=== PATIENT | female | born 1945 | race Caucasian/White ===

== ENCOUNTER 2019-12-20 01:36 | Outpatient (CLI) | payer MEDICARE, SELFPAY ==
--- NOTE | 2019-12-20 10:33 | DI.RAD_ITS ---
EXAM: XR CHEST 2V PA LATERAL INDICATION: MEDINA R06.09. COMPARISON: CHEST 2 VIEWS PA,LAT from 12/16/2017 TECHNIQUE: 2D digital imaging was performed. FINDINGS: Heart size is within normal limits. There is prominence of the pulmonary vasculature. Mild prominen ce of the interstitium is noted bilaterally. Pacing wires are in stable position. No focal consolid ating infiltrates are seen. No pleural effusion or pneumothorax is identified. The patient has bila teral shoulder replacements. Degenerative changes are seen in the spine. IMPRESSION: Mild prominence of the pulmonary vasculature and interstitium. This may represent pulmonary edema.
--- NOTE | 2019-12-20 10:38 | DI.RAD_ITS ---
EXAM: XR LUMBAR SPINE COMPLETE INDICATION: low back pain, M54.5. COMPARISON: No exams were available for comparison TECHNIQUE: 2D digital imaging was performed. FINDINGS: There are 5 lumbar type vertebral bodies. Grade 1 spondylolisthesis of L3 on L4, L4 on L5, and L5 on S1. There is disc space narrowing from L2-3 through L5-S1. There are endplate osteophytes througho ut the lumbar spine. Degenerative changes of the facets are seen throughout the lumbar spine. No ac [place] fractures or subluxations. There is a left convex scoliotic curvature of the lumbar spine. Athe rosclerosis of the abdominal aorta is noted. Surgical clips are seen in the pelvis. IMPRESSION: Moderately severe degenerative changes in the lumbar spine as described above
[2019-12-20 11:29] LABS: HCT 41.9 % (36.0-46.0); HGB 13.8 g/dL (12.0-15.5); Mean Corp. HGB Concentration 32.9 g/dL (32.0-36.0); Mean Corpuscular Hemoglobin 30.9 pg (27.0-33.0); Mean Corpuscular Volume 93.9 fL (80-95); Mean Platelet Volume 9.6 fL (8.0-11.0); Platelet Count 248 x1000/uL (130-400); RBC 4.46 m/cumm (4.00-5.20); RBC Distribution Width 12.4 % (11.7-14.6); White Blood Cell Count 6.39 k/cumm (4.4-10.8)
[2019-12-20 12:17] LABS: ALT 21 U/L (14-59); AST 21 U/L (15-37); Albumin 3.7 g/dL (3.4-5.0); Alkaline Phosphatase 82 U/L (46-116); BUN 17 mg/dL (7-18); Bilirubin, Total 0.5 mg/dL (0.2-1.0); C-Reactive Protein 0.47 mg/dL (0.0-0.3); CREATININE 0.91 mg/dL (0.55-1.02); Calcium 9.2 mg/dL (8.5-10.1); Chloride 108 mmol/L (98-107); Glucose 87 mg/dL (74-106); Potassium 4.2 mmol/L (3.5-5.1); Sodium 144 mmol/L (136-145); Total Protein 6.4 g/dL (6.4-8.2)
[2019-12-20 12:25] LABS: D-Dimer 1114 ng/mlFEU (<500)
[2019-12-20 12:53] LABS: ESR 12 mm/hr (0-30)
[2019-12-21] MEDS: Omnipaque 350 MG/ML 100 ML BTL IJ (10:24)
[2019-12-21] MEDS: Normal Saline - Diluent 50 ML VIAL IV (10:25)
--- NOTE | 2019-12-21 10:25 | DI.CT_ITS ---
EXAM: CT CHEST PE CTA CLINICAL HISTORY: SOB, ELEVATED D-DIMER, ? PE, I26.99 TECHNIQUE: COMPARISON: ABD PELVIS WITH CONTRAST from 07/26/2014 FINDINGS: CT angiography of chest was performed bolus infusion of 100 cc of Omnipaque 350. Images obtained thr ough the upper abdomen show unremarkable appearance visualized portions of liver, spleen, pancreas, a drenals, kidneys. There is no evidence of pulmonary embolic disease. Thoracic aorta major branches appear intact. No mediastinal or hilar adenopathy. Tracheobronchial tree appears intact. No pleura l effusion or pleural-based mass. Mosaic attenuation of the lungs noted, nonspecific finding which m ay be related to airway disease. Although the lungs are underinflated there is some question of slig ht interstitial prominence diffusely. Transvenous cardiac pacemaker noted. There is mild cardiomegaly. IMPRESSION: No evidence of pulmonary embolic disease. Cardiomegaly with slight interstitial prominence, early CH F not excluded. Mosaic attenuation of the lungs may indicate small airway process.
== END 2019-12-20 01:56 ==
PROVIDERS: PCP Emergency Medicine; Visit Provider Emergency Medicine
DX: M54.5 Low back pain (principal); M43.17 Spondylolisthesis, lumbosacral region; M51.37 Other intervertebral disc degeneration, lumbosacral region; M47.817 Spondylosis without myelopathy or radiculopathy, lumbosacral region; R06.02 Shortness of breath; R06.09 Other forms of dyspnea; I26.99 Other pulmonary embolism without acute cor pulmonale; Z95.0 Presence of cardiac pacemaker; I51.7 Cardiomegaly
CPT/HCPCS: 36415; 71275; 80053; 85027; 85652; 71046; 72110; 85379; 86140; J3490

== ENCOUNTER 2019-12-27 01:13 | Outpatient (CLI) | payer MEDICARE, SELFPAY ==
--- NOTE | 2019-12-27 10:10 | DI.NM_ITS ---
APPROVED REPORT Exam: Pharmacologic Patient Location: Out-Patient Room/Bed: Stress Nurse: Mandy Givens RN BMI: 30.17 Baseline Rhythm: Atrial Paced Indications: For the past 4 months patient reports SOB with activity. She states she also has a ???ti ghtness??? across the middle of her back when she has the SOB. Medical History Medical History: Cervical Spine Fusion for Disc Herniation Cardiac Medications: No Cardial Medications Allergies: Hydrochlorothiazide, Macrobid, Penicillin, Pomegranate, Bees. Cardiac Risk Factors: FHX of CAD Previous Cardiac Procedures: Pacemaker (January 2018) Pretest Chest Pain Characteristics: None Exercise History: Physically active Physical Disabilities: None Lung Sounds: Clear to auscultation Heart Sounds: Regular Stress Test Details Test: Pharmacologic stress testing performed using 0.4 mg of regadenoson per 5 mL given IV over 10 s econds. Nuclear Acquisition: Rest Tc-99m/Stress Tc-99m 1 day Rest Isotope: Tc-99m Sestamibi. Dose: 11.0 Date: 12/27/2019 Injection Time: 0850 Stress Isotope: Tc-99m Sestamibi. Dose: 33.0 Date: 12/27/2019 Injection Time: 1025 HR Max Heart Rate (APMHR): 144 bpm Resting HR Supine: 60 bpm Target HR (85% APMHR): 122 bpm Max HR Achieved: 68 bpm % of APMHR: 47 BP Resting BP Supine: 120/80 mmHg Max BP: 132/80 mmHg ECG Resting ECG: Atrial Paced ST Change: Normal Ectopy: none Stress ECG: Atrial paced ST Change: Normal Arrhythmia: None Recovery ECG: Sinus Rhythm Recovery ST Change: Normal Recovery Arrhythmia: None Clinical Stress Symptoms: None Stress ECG Conclusion 1. There was no evidence of ischemia on the ECG portion of this exam. Protocol Used: Regadenoson Stress Test Summary STAGE HR BP Symptoms NOTES Supine 60 120/80 Standing 1 min 60 130/80 2 min 3 min 60 132/80 4 min 5 min 6 min 60 118/70 7 min 8 min 9 min 10 min 1 min recovery 3 min recovery 6 min recovery MPI Conclusion Patient's ejection fraction was 53%. There were no wall motion abnormalities. There is no evidence of ischemia on the imaging portion of this exam. This represents a normal SPECT stress test.
[2019-12-27] MEDS: Regadenoson 0.4 MG/5 ML SYR IVP (10:50)
== END 2019-12-27 01:33 ==
PROVIDERS: PCP Emergency Medicine; Visit Provider Emergency Medicine
DX: R06.02 Shortness of breath (principal); R06.09 Other forms of dyspnea; Z95.0 Presence of cardiac pacemaker; Z82.49 Family history of ischemic heart disease and other diseases of the circulatory system
CPT/HCPCS: 78452; 93016; 93018; 93017; J2785

== ENCOUNTER 2020-01-09 09:41 | Outpatient (CLI) | payer MEDICARE, SELFPAY ==
[2020-01-09 13:59] LABS: D-Dimer 1233 ng/mlFEU (<500)
[2020-01-09 14:05] LABS: ESR 14 mm/hr (0-30)
== END 2020-01-09 10:01 ==
PROVIDERS: PCP Emergency Medicine; Visit Provider Emergency Medicine
DX: R06.02 Shortness of breath (principal); R79.1 Abnormal coagulation profile; M54.5 Low back pain
CPT/HCPCS: 36415; 85652; 85379

== ENCOUNTER 2020-03-11 11:45 | Outpatient (CLI) | payer MEDICARE, SELFPAY ==
--- NOTE | 2020-03-11 13:58 | DI.US_ITS ---
APPROVED REPORT EXAM: Comprehensive 2D, Doppler, and color-flow Echocardiogram Patient Location: Out-Patient Legal Compliance Officer: Yue Morse RDCS (AE) Indications: Dyspnea on Exerction Other Information Study Quality: Adequate Conclusion Left Ventricle : The left ventricle is normal size. The left ventricular systolic function is normal. The left ventricular ejection fraction is within the normal range. There is normal left ventricular wall thickness. There is normal LV segmental wall motion. The left ventricular diastolic function is normal. LVEF is 55-60%. Right Ventricle : The right ventricle is normal size. The right ventricular systolic function is norm al. Atria : The left atrium size is normal. The right atrium size is normal. Valves: There are no hemodynamically significant valvular lesions. Great Vessels : IVC is normal in size and collapses >50% with inspiration. The RVSP is 27 mmHg. Compared to echocardiogram dated 12/28/2017: There is no significant change. Wall motion Left Ventricle The left ventricle is normal size. The left ventricular systolic function is normal. The left ventric ular ejection fraction is within the normal range. There is normal left ventricular wall thickness. T here is normal LV segmental wall motion. The left ventricular diastolic function is normal. There is no ventricular septal defect visualized. LVEF is 55-60%. Right Ventricle The right ventricle is normal size. The right ventricular systolic function is normal. Pacemaker lead is present in the right ventricle. Atria The left atrium size is normal. The right atrium size is normal. The interatrial septum is intact wit h no evidence for an atrial septal defect. Aortic Valve The aortic valve is normal in structure. Aortic valve is trileaflet. There is no aortic valvular sten osis. No aortic regurgitation is present. Mitral Valve There is mitral annular calcification. No evidence of mitral valve stenosis. Trace mitral regurgitati on. Tricuspid Valve The tricuspid valve is normal in structure. There is no tricuspid valve stenosis. Mild tricuspid regu rgitation. Pulmonic Valve The pulmonary valve is normal in structure. There is no pulmonic valvular stenosis. There is no pulmo asuncion valvular regurgitation. Great Vessels The aortic root is normal in size. The ascending aorta is normal in size. IVC is normal in size and c ollapses >50% with inspiration. The RVSP is 27 mmHg. Pericardium There is no pericardial effusion. There is no pleural effusion. 2D Dimensions IVSD d PLAX 0.92 cm F: 0.6-1.0 LV Vol A2C d MOD 74.5 mL LVPW d PLAX 0.92 cm F: 0.6 - 1.0 LV Vol A4C d MOD 86.8 mL LVID d PLAX 4.58 cm F: 3.8 - 5.2 LA vol/ BSA A2C s A-L 21.3 mL/m2 LVDs 3.45 cm F: 2.2 - 3.5 LA vol/ BSA A4C s A-L 21.8 mL/m2 Ao Root d 3.46 cm F: 2.7 - 3.3 LA Vol/ BSA Biplane s A-L 22.0 mL/m2 RA Area A4C 16.29 cm2 LA Area A4C s MOD 15.99 cm2 RA Vol/ BSA A4C s A-L 22.2 mL/m2 LA Area A2C s MOD 16.13 cm2 Ao Asc Diam d 3.72 cm F: 2.3 - 3.1 LV EF A4C MOD 61.8 % LV EF Teichholz 48.2 % LV EF A2C MOD 50.2 % LVEF (Prather's) 56.69 % F: 54 - 74 LV EF Biplane MOD 56.7 % LV Volume 63.16 mL F: 46 - 106 LV Volume Index 32.55 mL/m2 F: 29 - 61 LV Vol Biplane MOD 83.5 mL FS 24.15 % M-Mode TAPSE 2.08 cm (M/F) <1.7 LV Diastology MV E' medial 0.044 (>0.07 m/s) E/A Ratio 0.9 LV E/e MED 11.40 (<14) MV E Vmax 0.50 (0.4-1.3 m/s) MV E' lateral 0.077 (>0.1 m/s) MV A Vmax 0.55 (0.4-1.3 m/s) LV E/e LAT 6.50 (<14) MV E/A Ratio 0.90 MV E/E' medial 11.43 MV E/E' lateral 6.51 Aortic Valve LVOT Area 2.53 cm2 AoV Area Vmax 2.09 cm2 LVOT Vmax 0.96 m/s AoV Area/ BSA (Vmax) 1.07 cm2/m2 LVOT Mean Jarret. 0.56 m/s MAX Mean Jarret. 1.73 cm2 LVOT Peak Grad 3.7 mmHg MAX Mean Jarret. Index 0.89 cm2/m2 LVOT Mean Grad 1.6 mmHg LVOT VTI 0.211 m LVOT Diam s 1.75 cm (M/F) 1.5-2.5 AoV Vmax 1.16 (0.5-1.3 m/s) Velocity Ratio 0.82 AoV Mean Jarret. 0.82 m/s AoV Peak Grad 5.4 mmHg LVOT SV 53.20 mL AoV Mean Grad 3.0 (<5 mmHg) AoV VTI 0.232 (0.18-0.25 m) AoV Area VTI 2.29 (2.5-4.5 cm2) AoV Area/ BSA (VTI) 1.18 cm/m2 Mitral Valve MV DT 416 (160-240 msec) MV PHT 121 msec MV Area PHT 1.82 cm2 Pulmonary Valve PV Vmax 0.74 (0.5-1.5 m/s) RVOT Peak Gr. 1.03 mmHg PV Peak Grad 2.2 mmHg RVOT Mean Gr. 0.50 mmHg PV Mean Grad 1.1 mmHg RVOT VTI 0.107 m PV VTI 0.155 m RVOT Vmax 0.51 m/s Tricuspid Valve TR Peak Grad 23.6 mmHg TR Vmax 2.43 m/s RA Pressure 3.00 mmHg RVSP (TR) 26.7 mmHg
[2020-03-11 14:00] LABS: Abs Immature Grans 0.02 k/cumm (0.0-0.09); Absolute Basophil Count 0.02 k/cumm (0.0-0.2); Absolute Eosinophil Count 0.34 k/cumm (0.0-0.7); Absolute Lymphocyte Count 1.94 k/cumm (1.2-3.4); Absolute Monocyte Count 0.58 k/cumm (0.11-0.7); Basophils % 0.3; Eosinophils % 4.7; HCT 41.1 % (36.0-46.0); HGB 13.9 g/dL (12.0-15.5); Immature Grans % 0.3 %; Lymphocytes % 26.9; Mean Corp. HGB Concentration 33.8 g/dL (32.0-36.0); Mean Corpuscular Hemoglobin 31.7 pg (27.0-33.0); Mean Corpuscular Volume 93.6 fL (80-95); Mean Platelet Volume 9.6 fL (8.0-11.0); Monocytes % 8.1; Neutrophils % 59.7; Platelet Count 220 x1000/uL (130-400); RBC 4.39 m/cumm (4.00-5.20); RBC Distribution Width 12.2 % (11.7-14.6)
[2020-03-11 14:08] LABS: ALT 22 U/L (14-59); AST 19 U/L (15-37); Albumin 3.6 g/dL (3.4-5.0); Alkaline Phosphatase 77 U/L (46-116); Anion Gap 9.8 mmol/L (3-11); BUN 17 mg/dL (7-18); Bilirubin, Total 0.4 mg/dL (0.2-1.0); C-Reactive Protein 0.27 mg/dL (0.0-0.3); CO2 25.2 mmol/L (21.0-32.0); CREATININE 0.93 mg/dL (0.55-1.02); Calcium 9.3 mg/dL (8.5-10.1); Chloride 107 mmol/L (98-107); Estimated GFR 58.61 (mL/min/1.73m2); Glucose 92 mg/dL (74-106); Potassium 4.2 mmol/L (3.5-5.1); Sodium 142 mmol/L (136-145); TSH 3.56 uIU/mL (0.36-3.74); Total Protein 6.9 g/dL (6.4-8.2)
[2020-03-11 14:22] LABS: D-Dimer 954 ng/mlFEU (<500)
[2020-03-11 14:38] LABS: ESR 24 mm/hr (0-30)
== END 2020-03-11 12:05 ==
PROVIDERS: PCP Emergency Medicine; Visit Provider Emergency Medicine
DX: R06.09 Other forms of dyspnea (principal); E03.9 Hypothyroidism, unspecified; R10.9 Unspecified abdominal pain; M48.00 Spinal stenosis, site unspecified
CPT/HCPCS: 36415; 80053; 85652; 93306; 84443; 85025; 85379; 86140

== ENCOUNTER 2020-03-12 01:08 | Outpatient (CLI) | payer MEDICARE, SELFPAY ==
--- NOTE | 2020-03-12 07:04 | DI.CT_ITS ---
EXAM: CT ABDOMEN AND PELVIS W AND CT LUMBAR SPINE RECONS CLINICAL HISTORY: ABDOMINAL PAIN, ABNL WT LOSS, R63.4, R10.9 TECHNIQUE: Imaging Protocol: Axial computed tomography images with coronal and sagittal reformatted images were created and reviewed CONTRAST MATERIAL: Intravenous: Omnipaque 350 Contrast volume:100 mL Oral: Yes COMPARISON: CT CHEST PE CTA from 12/21/2019 FINDINGS: ABDOMEN: Lung Bases: Dependent atelectasis or scarring. Liver: Normal density. No measurable mass. Portal, Superior Mesenteric, and Splenic Veins: Unremarkable. Gallbladder and Biliary Tract: No radiodense calculus or dilation. Pancreas: Normal density, no abnormal calcifications or inflammatory process. Spleen: Normal. Adrenals: No masses seen. Kidneys: Normal size, contour and axis. No radiodense stones or obstructive uropathy. No masses seen. Abdominal Aorta: Abdominal portion non-dilated. Atherosclerosis. Bowel: No obstruction or bowel wall thickening. Appendix is unremarkable. Peritoneal Cavity: No ascites, collection or mesenteric inflammatory response. Lymph Nodes: Within normal limits. Bones: See below. Soft Tissues: Unremarkable. PELVIS: Bladder: Symmetric distention, no gross wall thickening. Reproductive Organs: Status post hysterectomy. Lymph Nodes: Within normal limits. Bones: See below. CT LUMBAR SPINE RECONS: L5-S1: There is fusion of the L5-S1 disc space with grade 1 anterolisthesis of L5 on S1. There is mo derately severe bilateral neural foraminal stenosis. No significant central spinal canal stenosis is present. L4-L5: There is a vacuum disc. There is a diffuse disc bulge. There are hypertrophic changes of the facet joints. There is mild left and moderate right neural foraminal stenosis. Mild narrowing of t he transverse diameter of the spinal canal is noted. L3-L4: There is a vacuum disc. There is narrowing of the intervertebral disc space. There are degen erative changes of the facets. No significant central spinal canal stenosis is present. There is mo derate bilateral neural foraminal stenosis. L2-L3: There is a vacuum disc. No focal disc herniation or significant central spinal canal stenosis is seen. Mild narrowing of the neural foramen is seen bilaterally. L1-L2: No significant central spinal canal or neural foraminal stenosis is present. There is mild na rrowing of the neural foramen bilaterally. IMPRESSION: 1. No acute abdominal or pelvic process. 2. Multilevel degenerative changes in the lumbar spine resulting in multilevel neural foraminal and c entral spinal canal stenosis. Please see the above discussion for complete details. RADIATION DOSE DELIVERED: DATA REPOSITORY: All CT scans at this facility are submitted to the National Radiology Data Registry (NRDR) Dose Index Registry (DIR) with the [employer] ([employer]). RADIATION OPTIMIZATION: All CT scans at this facility use at least one of these dose optimization te chniques: automated exposure control; mA and/or kV adjustment per patient size (includes targeted exa ms where dose is matched to clinical indication); or iterative reconstruction.
[2020-03-12] MEDS: Omnipaque 350 MG/ML 50 ML BTL IJ (10:02)
[2020-03-12] MEDS: Breeza Beverage 473 ML BTL PO ×2 (10:03→10:05)
[2020-03-12] MEDS: Omnipaque 350 MG/ML 100 ML BTL IJ (11:41)
== END 2020-03-12 01:28 ==
PROVIDERS: PCP Emergency Medicine; Visit Provider Family Medicine
DX: R10.9 Unspecified abdominal pain (principal); R63.4 Abnormal weight loss; J98.4 Other disorders of lung; M51.37 Other intervertebral disc degeneration, lumbosacral region; M48.061 Spinal stenosis, lumbar region without neurogenic claudication; Z98.1 Arthrodesis status; Z90.710 Acquired absence of both cervix and uterus
CPT/HCPCS: 74177; J3490; Q9967

== ENCOUNTER 2020-07-09 13:09 | Emergency (ER) | payer MEDICARE, SELFPAY ==
[2020-07-09] VITALS (13 sets, daily range): BP systolic 151; BP diastolic 84; PULSE 60–61; RESP 11–25; TEMP 36.3–36.6; O2SAT 96–99
--- NOTE | 2020-07-09 13:00 | RT.EKG_ITS ---
APPROVED REPORT Exam: Resting ECG Patient Location: E HR:60 bpm ECG Measurements Heart Rate 60 AXIS AZ 121 P [id number] QRSd 97 QRS 10 QT 424 T 27 QTc 424 Conclusion Atrial-paced rhythm. Less than 1mm ST depression in V3. No acute ST elevation.
[2020-07-09] MEDS: Normal Saline 500 ML IV (13:15)
--- NOTE | 2020-07-09 13:30 | RT.EKG_ITS ---
APPROVED REPORT Exam: Resting ECG Patient Location: E HR:60 bpm ECG Measurements Heart Rate 60 AXIS ME 122 P [id number] QRSd 97 QRS 1 QT 431 T 14 QTc 431 Conclusion Atrial-paced rhythm. No acute ST elevation or depression.
--- NOTE | 2020-07-09 13:31 | DI.CT_ITS ---
EXAM: CT HEAD WO CLINICAL HISTORY: dizziness. TECHNIQUE: Imaging Protocol: Axial computed tomography images with coronal and sagittal reformatted images were created and reviewed COMPARISON: CT HEAD WITHOUT CONTRAST from 07/26/2014 FINDINGS: Ventricles and Extra axial spaces: Normal in size and morphology for the patient's age. Hemorrhage: None. Cerebral parenchyma: Findings of microvascular ischemic disease. No acute territorial infarct. Midline shift: None. Brainstem/Cerebellum: Normal. Calvarium: Normal. Visualized Paranasal sinuses/Mastoids: Clear. Soft Tissues: Unremarkable. IMPRESSION: No acute intracranial process. RADIATION DOSE DELIVERED: 762.23mGy.cm Total DLP DATA REPOSITORY: All CT scans at this facility are submitted to the National Radiology Data Registry (NRDR) Dose Index Registry (DIR) with the [employer] ([employer]). RADIATION OPTIMIZATION: All CT scans at this facility use at least one of these dose optimization te chniques: automated exposure control; mA and/or kV adjustment per patient size (includes targeted exa ms where dose is matched to clinical indication); or iterative reconstruction.
--- NOTE | 2020-07-09 13:45 | W.ED.GENAD ---
Discharge Plan Disposition Patient Disposition: HOME Condition: Stable Discharge Details Chief Complaint: Dizzy/Sync Clinical Impression: Dizziness Primary Care Provider: Milad Holbrook ED Provider: Oscar Smith Home Meds and New Rx's Prescriptions: Continued levothyroxine [Synthroid] 50 mcg tablet 50 mcg PO DAILY Qty: 90 RF: 3 Trelegy Ellipta 100-62.5-25 mcg blister with device 1 inh IH DAILY Qty: 60 RF: 6 albuterol sulfate 90 mcg/actuation HFA aerosol inhaler 2 puff IH QID Qty: 18 RF: 0 cholecalciferol (vitamin D3) [Vitamin D3] 1,000 UNIT capsule 1,000 unit PO DAILY RF: 0 aspirin 81 MG tablet,chewable 81 mg PO DAILY RF: 0 estradiol [Vagifem] 10 MCG tablet 10 mcg VG UNKNOWN RF: 0 Discharge Instructions Instructions: Dizziness (ED) Additional Instructions: At this time your work-up was unremarkable for obvious emergent process including a rapid cardiac rule out and a head CT. You have remained asymptomatic while in the ER. As we discussed, I do recommend contacting your primary care provider tomorrow for prompt outpatient reevaluation, they may want to see you sooner than your scheduled appointment in early July. Also outpatient cardiology referral and/or potential stress test could be indicated if deemed necessary. I would discuss this with your primary care provider as well. Please watch for new or worsening symptoms and return to the ER for any concerns. Discharge Data Discharge Date/Time-TO BE ENTERED AT DEPARTURE: 07/09/20 17:35 Medical Decision Making <Leonela Starr - Last Filed: 07/10/20 08:42> EKG was reviewed by Zulma Isaacs MD ER attending, old EKG is available for review from November 2019, less than [address] depression V2, [address] depression in V3 consider posterior infarct. 1519: Patient reevaluation has received approximately 700 mils normal saline IV has been up to the bathroom x2 without any complaint of dizziness. Has never complained of chest pain. CBC is largely within normal limits, CMP sodium is 138, potassium 4.3, BUN is 20 creatinine is 0.83 GFR is greater than 60, glucose is 117 initial troponin is negative less than 0.06, urinalysis is largely within normal limits. Meclizine 25 mg p.o. ordered. At this time I feel that this could have been an isolated incident related to dehydration. Serial troponin is due at 4:30 PM. EXAM: CT HEAD WO CLINICAL HISTORY: dizziness. TECHNIQUE: Imaging Protocol: Axial computed tomography images with coronal and sagittal reformatted images were created and reviewed COMPARISON: CT HEAD WITHOUT CONTRAST from 07/26/2014 FINDINGS: Ventricles and Extra axial spaces: Normal in size and morphology for the patient's age. Hemorrhage: None. Cerebral parenchyma: Findings of microvascular ischemic disease. No acute territorial infarct. Midline shift: None. Brainstem/Cerebellum: Normal. Calvarium: Normal. Visualized Paranasal sinuses/Mastoids: Clear. Soft Tissues: Unremarkable. IMPRESSION: No acute intracranial process. Discussed lab results and plan of care at length with patient, she agrees to wait for her second serial troponin which is due at approximately 1630 p.m. Patient continues to deny any chest pain or increased shortness of breath no other episodes of dizziness at this time. Care is to be handed off pending second troponin to oncoming provider GRANT Vick. Expected disposition at this time is discharged with possible follow-up with cardiology, and PCP Dr. Holbrook. She does have a follow-up appointment on August 05 with PCP. <GRANT Orozco - Last Filed: 07/09/20 17:29> 74-year-old female with a history of chronic pneumonitis, spinal stenosis, uterine cancer, presents to the ER stating that this morning she had dizziness like the room was spinning. This occurred around 9 AM. She felt nauseous, call was placed to PCP who suggested drinking water. Patient reports that she drank water and was subsequently asymptomatic but came to the ER for further evaluation. Thus far initial cardiac work-up was unremarkable, head CT was unremarkable, repeat troponin and EKG pending. I assumed care from my colleague, KEYLA Starr at shift change, please see her note for initial HPI and examination. Upon shift change, I examined the patient personally in room 4. She was resting comfortably and reported feeling asymptomatic. She appears well, nontoxic. Head normocephalic, moist mucous membranes, eyes extraocular movements intact, no nystagmus. Heart regular rate and rhythm, lungs clear to auscultation. Grossly neurologically intact. Plan was if repeat troponin and EKG were unremarkable, patient remained asymptomatic, she would be discharged from our facility with close outpatient follow-up through her primary care provider and likely outpatient cardiology referral. I discussed this plan with patient, she is quite comfortable with this. Repeat troponin is less than 0.05. Repeat EKG performed at 1653 reviewed and interpreted with Dr. Isaacs, please see her official report. Sinus rhythm, ventricular rate of 60. No STEMI, no dynamic changes. Discussed repeat EKG and troponin with patient. She is relieved and has no additional questions or concerns. Her plan is to contact her primary care provider tomorrow to see if they would like to see her earlier than her already scheduled appointment in early July. We did discuss outpatient cardiology referral and/or potential stress test. She was encouraged to return to the ER for new or worsening symptoms. HPI <Leonela Starr - Last Filed: 07/10/20 08:42> General Mode of arrival: ambulatory. Date/Time Provider Initiated Documentation: 07/09/20 13:14. Limitations to Documentation: no limitations. Information obtained by: patient. HPI Narrative: 74-year-old female presents to the ER with dizziness. She reports that this morning when she woke up around 9 AM she felt unsteady on her feet have nausea and dizziness she sat back down, sat back up and then dizziness returned. She did drink some water and she reports that the dizziness went away after that. She denies having any dizziness upon initial exam, no chest pain no increased shortness of breath. She does state that she has shortness of breath at baseline normally. She does have a past medical history of Atrial pacemaker, dyspnea on exertion, chronically elevated d-dimer, pneumonitis, spinal stenosis and uterine cancer, surgical history includes hysterectomy knee replacement shoulder surgery. She denies any vomiting diarrhea. She was [place] [employer] yesterday in the heat. Related Data Home Medications Medication Instructions Recorded Confirmed estradiol [Vagifem] 10 mcg VG UNKNOWN 06/01/15 07/09/20 cholecalciferol (vitamin D3) 1,000 unit PO DAILY 12/03/15 07/09/20 [Vitamin D3] aspirin 81 mg PO DAILY tab-cap 01/27/18 07/09/20 levothyroxine 50 mcg tablet 50 mcg PO DAILY #90 tab 03/11/20 07/09/20 albuterol sulfate 90 mcg/actuation 2 puff IH QID #18 gm 03/28/20 07/09/20 aerosol inhaler fluticasone fur. 100 mcg-umeclid 1 inh IH DAILY #60 each 03/28/20 07/09/20 62.5 mcg-vilant 25 mcg inhalat.powder Previous Rx's Medication Instructions Recorded levothyroxine 50 mcg tablet 50 mcg PO DAILY #90 tab 03/11/20 albuterol sulfate 90 mcg/actuation 2 puff IH QID #18 gm 03/28/20 aerosol inhaler fluticasone fur. 100 mcg-umeclid 1 inh IH DAILY #60 each 03/28/20 62.5 mcg-vilant 25 mcg inhalat.powder Allergies Allergy/AdvReac Type Severity Reaction Status Date / Time umeclidinium Allergy Intermediate rash Verified 03/21/20 11:23 [From Anoro Ellipta] vilanterol Allergy Intermediate rash Verified 03/21/20 11:23 [From Anoro Ellipta] hydrochlorothiazide Allergy Mild Itching Verified 01/08/20 11:07 nitrofurantoin Allergy Mild Itching Verified 01/08/20 11:07 [From Macrobid] nitrofurantoin Allergy Mild Itching Verified 01/08/20 11:07 macrocrystalline [From Macrobid] Penicillins Allergy Mild Itching Verified 01/08/20 11:07 pomegranate Allergy Mild Itching Verified 01/08/20 11:07 General Stated Complaint: Dizzy/Sync YANNI: 3 Review of Systems <Leonela Starr [employer] Last Filed: 07/10/20 08:42> Narrative: Constitutional: Negative for weight loss, alert and oriented, well groomed, normal body habitus, appears comfortable. HEENT: Denies trauma, blurry vision, nasal discharge, sore throat, trouble swallowing. Mild headache. Chest: Denies chest pain, palpitations, irregular rhythm, hypertension. Respiratory: Denies Shortness of breath, cough, hemoptysis. GI: Denies abdominal pain, nausea, vomiting, diarrhea, constipation. : Denies dysuria, hematuria, flank pain, rectal bleeding. Neuro: Denies blurry vision, weakness, syncope, headache or facial numbness. Positive dizziness which has resolved. Hematologic: Denies easy bruising, intolerance to heat or cold, hair loss. PFSH <Leonelakanika [place] [facility] [[email or web address]] Filed: 07/10/20 08:42> Medical History Abdominal pain (Acute) MEDINA (dyspnea on exertion) (Acute) Elevated d-dimer (Acute) Pneumonitis (Acute) Spinal stenosis (Acute) Uterine cancer (Acute) Social History Smoking/Tobacco Use Status: Former Tobacco Use Drug use: Never Do you feel safe at home: Yes Do you feel safe in your relationship?: Yes Exam <Leonela Starr - Last Filed: 07/10/20 08:42> Narrative Exam Narrative: Constitutional: Alert and oriented x3. Appears stated age. Normal body habitus. Head: Normocephalic, no trauma. Eyes: Pupils PERRLA, Red reflex noted, EOM's intact. Eyelids symmetrical without lesions, discharge, or swelling. ENT: Bilateral TM's WNL, External ear normal to inspection, no mastoid TTP, swelling, or erythema, Nasal turbinates WNL, no nasal discharge. Normal dentition, Posterior pharynx WNL, no exudate. Chest: RRR, Normal S1, S2, distal pulses intact. Resp: Lungs clear to auscultation bilaterally, no wheezes, rales, or rhonchi. Musculoskeletal: Normal gait, 5/5 strength to all four extremities. Skin: No suspicious rashes or lesions. Capillary refill less than 2 sec. Neurologic: Cranial nerves II-XII intact. Alert and oriented x 3. DTR's intact. Hematologic/Lymphatic: No ecchymosis, no lymphadenopathy. Course <Leonela Starr - Last Filed: 07/10/20 08:42> Vital Signs Vital signs: Vital Signs Temperature 36.3 C L 07/09/20 13:13 Pulse 60 07/09/20 13:13 Respiratory Rate 14 07/09/20 13:13 Blood Pressure 151/84 H 07/09/20 13:13 Pulse Oximetry 97 07/09/20 13:13 Temperature 36.3 C L 07/09/20 13:13 Temperature Source Skin 07/09/20 13:13 Pulse 60 07/09/20 13:13 Respiratory Rate 14 07/09/20 13:13 Blood Pressure 151/84 H 07/09/20 13:13 Blood Pressure Position Supine 07/09/20 13:13 Pulse Oximetry 97 07/09/20 13:13 Oxygen Delivery Method Room Air 07/09/20 13:13 Oxygen Flow Rate 0 07/09/20 13:13 Sign Out <Leonela Starr - Last Filed: 07/10/20 08:42> Sign Out Data: Sign Out Comment: Pending repeat Troponin. Expected disposition is DC with possible cardiology follow up and PCP follow up. Last updated by Leonela Starr at 07/09/20 16:15
[2020-07-09 13:48] LABS: Abs Immature Grans 0.03 10^3/uL (0.0-0.06); Absolute Basophil Count 0.02 10^3/uL (0.0-0.2); Absolute Eosinophil Count 0.12 10^3/uL (0.0-0.7); Absolute Lymphocyte Count 0.83 10^3/uL (1.2-3.4); Absolute Monocyte Count 0.47 10^3/uL (0.1-0.8); Absolute Neutrophil Count 6.87 10^3/uL (1.2-6.7); Basophils % 0.2; Eosinophils % 1.4; HCT 40.1 % (36.0-46.0); HGB 13.3 g/dL (11.2-15.7); Immature Grans % 0.4; MCH 31.8 pg (27.0-33.0); MCHC 33.2 % (32.0-36.0); MCV 95.9 fL (80-95); MPV 9.4 fL (8.0-11.0); Monocytes % 5.6; Neutrophils % 82.4; Nucleated RBC 0 %; Platelet Count 205 10^3/uL (130-400); RBC 4.18 10^6/uL (3.93-5.22); RDW 11.7 % (11.7-14.6); RDW-SD 41.1 fL; WBC 8.34 10^3/uL (4.4-10.8)
[2020-07-09 14:05] LABS: Bilirubin Negative (Negative); Blood Negative (Negative); Clarity Clear (Clear); Glucose Negative (Negative); Ketones Negative (Negative); Leukocyte Esterase Negative (Negative); Nitrite Negative (Negative); Urobilinogen 0.2 EU/dL (Up TO 0.2)
[2020-07-09 14:06] LABS: ALT 26 U/L (14-59); AST 23 U/L (15-37); Albumin 3.6 g/dL (3.4-5.0); Alkaline Phosphatase 77 U/L (46-116); Anion Gap 6.4 mmol/L (3-11); BUN 20 mg/dL (7-18); Bilirubin, Total 0.5 mg/dL (0.2-1.0); CO2 25.6 mmol/L (21.0-32.0); CREATININE 0.83 mg/dL (0.55-1.02); Chloride 106 mmol/L (98-107); Glucose 117 mg/dL (74-106); Potassium 4.3 mmol/L (3.5-5.1); Sodium 138 mmol/L (136-145); Total Protein 6.9 g/dL (6.4-8.2)
[2020-07-09 14:07] LABS: Troponin I < 0.05 ng/mL (<0.06)
[2020-07-09] MEDS: Meclizine 25 MG TAB PO (15:23)
--- NOTE | 2020-07-09 16:45 | RT.EKG_ITS ---
APPROVED REPORT Exam: Resting ECG Patient Location: E HR:60 bpm ECG Measurements Heart Rate 60 AXIS FL 199 P [id number] QRSd 98 QRS 2 QT 427 T 13 QTc 427 Conclusion Atrial-paced rhythm. No acute ST elevation or depression.
[2020-07-09 17:03] LABS: Troponin I < 0.05 ng/mL (<0.06)
== END 2020-07-09 17:35 | disposition home or self-care (01) ==
PROVIDERS: Registered Nurse Emergency; Emergency Provider Physician Assistant; PCP Emergency Medicine
DX: R42 Dizziness and giddiness (principal); R11.0 Nausea
CPT/HCPCS: 36415; 80053; 93005; 99285; 70450; 81003; 83735; 84484; 85025; 93010; 99284

== ENCOUNTER 2022-02-26 12:21 | Outpatient (CLI) | payer OTHER, SELFPAY ==
[2022-02-26 12:04] VITALS: BP 151/88; PULSE 60; RESP 16; TEMP 36.4; O2SAT 97
[2022-02-26 12:27] VITALS: BP 122/73; PULSE 60; RESP 16; TEMP 36.9; O2SAT 94
== END 2022-02-26 12:22 | disposition home or self-care (01) ==
LOC: INF 12:34
PROVIDERS: PCP Family Medicine; Visit Provider Family Medicine
DX: U07.1 COVID-19 (principal)
CPT/HCPCS: 96365; 96374; Q0222

== ENCOUNTER 2022-03-20 04:17 | Inpatient (IN) | payer MEDICARE, SELFPAY ==
[2022-03-20] VITALS (51 sets, daily range): BP systolic 93–136; BP diastolic 40–72; PULSE 59–61; RESP 16–19; TEMP 36.4–38.1; O2SAT 93–100
--- NOTE | 2022-03-20 05:06 | W.ED.GENAD ---
Discharge Plan Disposition Patient Disposition: STILL A PATIENT Condition: Stable Discharge Details Chief Complaint: Orthopedic Clinical Impression: Olecranon bursitis of left elbow, Cellulitis of arm, left Primary Care Provider: Jefferson Cazares ED Provider: Farhat Finnegan Home Meds and New Rx's Prescriptions: No Action Anoro Ellipta 62.5-25 mcg/actuation blister with device 1 inh IH DAILY 0RF Label Comments: prescribed log feeder, [facility] [place] Ellipta 100-62.5-25 mcg blister with device 1 inh IH DAILY Qty: 60 6RF albuterol sulfate 90 mcg/actuation HFA aerosol inhaler 2 puff IH QID Qty: 18 0RF cholecalciferol (vitamin D3) [Vitamin D3] 1,000 UNIT capsule 1,000 unit PO DAILY 0RF aspirin 81 MG tablet,chewable 81 mg PO DAILY 0RF levothyroxine [Synthroid] 50 mcg tablet 50 mcg PO DAILY Qty: 90 3RF sulfamethoxazole-trimethoprim [Bactrim DS] 800-160 mg tablet 1 tab PO BID Qty: 6 0RF estradiol [Vagifem] 10 MCG tablet 10 mcg VG UNKNOWN 0RF Medical Decision Making Patient is a 76-year-old female with a past medical history of previous COVID-19, spinal stenosis, uterine cancer in the distant past, previous orthopedic joint replacement (left and right shoulder repair, right knee replacement) who presents today for left elbow and arm pain. States that 2 days ago she had gently hit her elbow. She has some mild soreness but no functional difficulty or significant pain. However over the last 24 hours she has noticed significant amount of swelling over the olecranon, as well as redness over the forearm as well as pain on the skin in those areas. She denies fever or chills but she does admit to malaise and fatigue. Pain is made worse with movement of the arm and palpation of the forearm. She denies any numbness or tingling or weakness. She describes the pain is outside of the elbow on the skin. She denies any trauma otherwise. No other complaints. Physical exam demonstrates mild swelling over the forearm, as well as the elbow. No pain in the elbow itself with probing, but she does have some tenderness over the fluid-filled sac over her olecranon. Suspect olecranon bursitis. The patient is afebrile. However she does have what appears to be notable cellulitis on a bit of her forearm. Bedside ultrasound shows no evidence of large deep vein thrombosis. There is a large fluid-filled sac over the olecranon business process representative of the bursa. This was cleaned sterilely, and then sterilely the bursa fluid was removed. Does appear slightly cloudy. We will test for further evidence of infection. We will get blood work and blood cultures to evaluate for systemic component as well. Will monitor closely and reassess. With no significant trauma in the left arm, no significant pain prior to be swelling, patient has seen indication for an x-ray at this time. Symptoms appearing inconsistent with olecranon fracture. 7:30 AM Laboratory work-up is returned, patient does have an elevated white count at 16.79, mild left shift, lactate is normal. Electrolytes stable. Creatinine is slightly higher than normal at 1.3. Total bilirubin is up at 2.0, however the patient has no abdominal tenderness whatsoever. No evidence of significant jaundice. Fluid drained from the elbow demonstrates 40,000 WBCs, with a 95% poly predominance. No crystals were seen. I do feel that this certainly leans more towards an infectious component, in addition to the cellulitis that is present on her upper extremity. Patient's heart rate and blood pressure and temperature remained stable though. Due to the patient's age and comorbidities I do feel that IV antibiotics would be beneficial at this time. We will give IV clindamycin. No cad application support specialist is on-call at [facility] this weekend. I will contact [facility] reach out to them for any other recommendations for plan, with the plan to admit here. 8:04 AM No callback from [facility] yet. We have paged them. Of note COVID test was ordered anticipating admission, and this has returned positive. The patient was positive on April 25 of this year (20 days ago) she received the monoclonal antibody infusion and had symptomatically completely recovered. She does state that she took a home COVID test and this was negative, however she has not had any PCR repeat test since she became clinically asymptomatic. Otherwise the patient denies any cough or shortness of breath at all at this point. However out of an abundance of precaution we will keep the patient as a PUI for the time being. Patient will be signed out to my colleague Dr. Zulma Isaacs for follow-up with [facility] plan for admission. [facility] General Date/Time Provider Initiated Documentation: 03/20/22 04:21. HPI Narrative: Patient is a 76-year-old female with a past medical history of previous COVID-19, spinal stenosis, uterine cancer in the distant past, previous orthopedic joint replacement, who presents today for left elbow and arm pain. States that 2 days ago she had gently hit her elbow. She has some mild soreness but no functional difficulty or significant pain. However over the last 24 hours she has noticed significant amount of swelling over the olecranon, as well as redness over the forearm as well as pain on the skin in those areas. She denies fever or chills but she does admit to malaise and fatigue. Pain is made worse with movement of the arm and palpation of the forearm. She denies any numbness or tingling or weakness. She describes the pain is outside of the elbow on the skin. She denies any trauma otherwise. No other complaints. Related Data Home Medications Medication Instructions Recorded Confirmed estradiol 10 mcg vaginal tablet 10 mcg VG UNKNOWN 06/01/15 08/06/20 (Vagifem) cholecalciferol (vitamin D3) 25 1,000 unit PO DAILY 12/03/15 08/06/20 mcg (1,000 unit) capsule (Vitamin D3) aspirin 81 mg chewable tablet 81 mg PO DAILY tab-cap 01/27/18 08/06/20 albuterol sulfate 90 mcg/actuation 2 puff IH QID #18 gm 03/28/20 08/06/20 aerosol inhaler fluticasone fur. 100 mcg-umeclid 1 inh IH DAILY #60 each 03/28/20 08/06/20 62.5 mcg-vilant 25 mcg inhalat.powder (Trelegy Ellipta) umeclidinium 62.5 mcg-vilanterol 1 inh IH DAILY 08/06/20 08/06/20 25 mcg/actuation powdr for inhalation (Anoro Ellipta) levothyroxine 50 mcg tablet 50 mcg PO DAILY #90 tab 03/05/21 (Synthroid) sulfamethoxazole 800 1 tab PO BID #6 tab 01/04/22 mg-trimethoprim 160 mg tablet (Bactrim DS) Previous Rx's Medication Instructions Recorded albuterol sulfate 90 mcg/actuation 2 puff IH QID #18 gm 03/28/20 aerosol inhaler fluticasone fur. 100 mcg-umeclid 1 inh IH DAILY #60 each 03/28/20 62.5 mcg-vilant 25 mcg inhalat.powder (Trelegy Ellipta) levothyroxine 50 mcg tablet 50 mcg PO DAILY #90 tab 03/05/21 (Synthroid) sulfamethoxazole 800 1 tab PO BID #6 tab 01/04/22 mg-trimethoprim 160 mg tablet (Bactrim DS) Allergies Allergy/AdvReac Type Severity Reaction Status Date / Time umeclidinium Allergy Intermediate rash Verified 03/20/22 04:34 [From Anoro Ellipta] vilanterol Allergy Intermediate rash Verified 03/20/22 04:34 [From Anoro Ellipta] hydrochlorothiazide Allergy Mild Itching Verified 03/20/22 04:34 nitrofurantoin Allergy Mild Itching Verified 03/20/22 04:34 [From Macrobid] nitrofurantoin Allergy Mild Itching Verified 03/20/22 04:34 macrocrystalline [From Macrobid] Penicillins Allergy Mild Itching Verified 03/20/22 04:34 pomegranate Allergy Mild Itching Verified 03/20/22 04:34 General Stated Complaint: Orthopedic YANNI: 3 Review of Systems All systems reviewed & are unremarkable except as noted in HPI and below PFSH All Active Problems (Updated 03/20/22 @ 08:07 by Farhat Finnegan DO) Olecranon bursitis of left elbow (Acute) Cellulitis of arm, left (Acute) COVID-19 (Acute) 02/24/22 Elevated d-dimer (Acute) Pneumonitis (Acute) Abnormal weight loss (Acute) Spinal stenosis (Acute) Abdominal pain (Acute) MEDINA (dyspnea on exertion) (Acute) Uterine cancer (Acute) Social History Smoking/Tobacco Use Status: Former Tobacco Use Smoking risk assessment performed?: Yes Drug use: Never Substance use type: does not use Do you feel safe at home: Yes Do you feel safe in your relationship?: Yes Exam Narrative Exam Narrative: 1.Const: Well-nourished, Well-developed, appearing stated age 2.Eyes: PERRL, no conjunctival injection, and symmetrical lids. 3.ENT: Atraumatic external nose and ears. Moist MM. Neck: Symmetric, trachea midline, No thyromegaly. 4.CVS: +S1/S2, No murmurs or gallops. Peripheral pulses 2+ and equal in all extremities. Brisk capillary refill in all extremities. 5.RESP: Unlabored respiratory effort. Clear to auscultation bilaterally. No wheezes rales or rhonchi 6.GI: Soft, Nontender/Nondistended, No hepatosplenomegaly. No guarding or rebound. 7.MSK: Patient's left upper extremity demonstrates swelling around the elbow on the left over the olecranon. Appears to be a fluid-filled bursa. The redness here extends up the dorsal and ventral aspects of the arm but not circumferentially. It only appears to be on the medial dorsal aspect of the medial ventral aspect. No circumferential cellulitis. It stopped notably proximal to the wrist, and there is no extension to the hand. And demonstrates no swelling. No redness or warmth of the hand. Good capillary refill for all fingers. Good sensation. Normal strength of the hand and elbow and fingers. 8.Skin: No evidence of abscess. 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 Sensation grossly intact, no focal neurologic deficits. 10.Psych: (AAO) x3. Appropriate mood and affect Course Vital Signs Vital signs: Vital Signs Temperature 36.9 C 03/20/22 04:25 Pulse 60 03/20/22 04:25 Respiratory Rate 18 03/20/22 04:25 Blood Pressure 136/72 03/20/22 04:25 Pulse Oximetry 94 03/20/22 04:25 Temperature 36.9 C 03/20/22 04:25 Temperature Source Oral 03/20/22 04:25 Pulse 60 03/20/22 04:25 Respiratory Rate 18 03/20/22 04:25 Respiratory Effort 03/20/22 04:31 Blood Pressure 136/72 03/20/22 04:25 Blood Pressure Position Supine 03/20/22 04:25 Pulse Oximetry 94 03/20/22 04:25 Oxygen Delivery Method Room Air 03/20/22 04:25 Oxygen Flow Rate 0 03/20/22 04:25 Pain Level 8 03/20/22 04:31 Lab/Test Results Lab/Test Results: 03/20/22 05:02 Bursa Body Fluid Culture - Pending 03/20/22 05:02 Bursa Gram Stain - Pending 03/20/22 04:39 Blood Blood Culture - Pending 03/20/22 04:39 Blood Blood Culture - Pending Procedures Joint Aspiration/Injection Joint Asp./Inject. 1: Time Out Performed: Yes Side of body: left Joint Aspirated: elbow (Olecranon bursa) Ultrasound Guidance: Yes Skin Prep: Chlorhexidene Needle Size Used: 22G Fluid Obtained: turbid Total fluid obtained (mL): 5 Patient Tolerated Procedure: well and no complications Complications: none
[2022-03-20 05:45] LABS: Lactate 1.1 mmol/L (0.6-1.4)
[2022-03-20 06:15] LABS: Abs Immature Grans 0.35 10^3/uL (0.0-0.06); Absolute Neutrophil Count 14.47 10^3/uL (1.2-6.7); Basophils % 0.2; HCT 37.3 % (36.0-46.0); HGB 12.3 g/dL (11.2-15.7); Immature Grans % 2.1; Lymphocytes % 4.8; MCH 30.8 pg (27.0-33.0); MCV 93.3 fL (80-95); MPV 10.8 fL (8.0-11.0); Monocytes % 6.7; Neutrophils % 86.2; Platelet Count 141 10^3/uL (130-400); RDW 11.9 % (11.7-14.6); RDW-SD 40.5 fL; WBC 16.79 10^3/uL (4.4-10.8)
[2022-03-20 06:17] LABS: ALT 19 U/L (14-59); AST 17 U/L (15-37); Albumin 3.1 g/dL (3.4-5.0); Alkaline Phosphatase 65 U/L (46-116); Anion Gap 8.2 mmol/L (3-11); BUN 22 mg/dL (7-18); CO2 24.8 mmol/L (21.0-32.0); CREATININE 1.3 mg/dL (0.55-1.02); Calcium 8.8 mg/dL (8.5-10.1); Chloride 102 mmol/L (98-107); Estimated GFR 39.61 (mL/min/1.73m2); Glucose 107 mg/dL (74-106); Potassium 3.4 mmol/L (3.5-5.1); Sodium 135 mmol/L (136-145); Total Protein 6.7 g/dL (6.4-8.2)
[2022-03-20 06:20] LABS: Absolute Basophil Count 0.03 10^3/uL (0.0-0.2); Absolute Lymphocyte Count 0.81 10^3/uL (1.2-3.4); Absolute Monocyte Count 1.12 10^3/uL (0.1-0.8)
[2022-03-20 06:28] LABS: Clarity Cloudy
[2022-03-20 06:41] LABS: Crystals (BF) No Crystals seen
[2022-03-20 06:41] LABS: D-Dimer 1877 ng/mlFEU (<500)
[2022-03-20] MEDS: CLINDAMYCIN 600 MG/50 ML BAG 100 MG IVPB ×3 (06:46→17:44)
[2022-03-20 06:49] LABS: Mononuclear Cells 5 %; Polynuclear Cells 95 %
[2022-03-20 07:22] LABS: Source Nasal/Nares
[2022-03-20 08:02] LABS: COVID-19 PCR POSITIVE (Negative)
[2022-03-20] MEDS: Potassium Chloride 20 MEQ TABCR 40 MEQ PO (09:10)
[2022-03-20] MEDS: ACETAMINOPHEN 1,000 MG/100 ML BTL 400 MG IVPB (09:11)
[2022-03-20 09:12] LABS: ESR 50 mm/hr (0-30)
[2022-03-20] MEDS: Normal Saline 1,000 ML 1000 ML IV ×2 (09:12→15:19)
[2022-03-20 09:20] LABS: C-Reactive Protein 24.41 mg/dL (0.0-0.3)
[2022-03-20] MEDS: Normal Saline 1,000 ML 150 ML IV ×2 (10:49→20:02)
[2022-03-20] MEDS: Enoxaparin 40 MG/0.4 ML SYR SC (10:58)
--- NOTE | 2022-03-20 10:59 | INITIAL_ITS ---
- If Service Date Differs Date of service: 03/20/22 Time of Service: 10:59 Care Management Initial Assess REASON FOR HOSPITALIZATION:: Olecranon bursitis of left elbow, Cellulitis of left arm PAST MEDICAL HISTORY/PAST SURGICAL HISTORY:: PMH: Hypothyroidism, Uterine Cancer, History of abnormal PFTs w/ reduced lung capacity but no formal diagnosis of pulmonary disease. SURG: Pacemaker, Hysterectomy, Bilateral shoulder replacements, Right knee replacement, Bilateral Carpal tunnel release. . Addendum dictated by Zulma Isaacs DO 03/20/22 0916 PREVIOUS FUNCTIONAL STATUS/SOCIAL/FAMILY SUPPORTS:: Ana lives at a Condo on [facility]. She is from [place] and recently moved to the area. She is independent at baseline and enjoys to ski and bike. 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 Her adult children Dante and Deana are both supportive, however they do not live locally. CURRENT FUNCTIONAL STATUS:: Ana was sitting up in bed when CM met with her. Ana is alert, oriented, pleasant and easy to engage in conversation. Ana requires IV ABX and pain medication. Ana c/o left arm pain with swelling that extends from her elbow to her wrist. The area is marked and being closely monitored. Ana shares that she recently moved to [place] and really enjoys skiing and biking at [place]. ADVANCE DIRECTIVES:: None on file, CM will offer forms Has patient been provided with info about the portal/API?: Yes Did the patient sign up for the portal?: Yes (Prior to admission) CODE STATUS:: Full Code INSURANCE COVERAGE / FINANCIAL ISSUES:: [facility] [employer]. [facility] CURRENT HOME/COMMUNITY SERVICES/EQUIPMENT:: None PRIMARY CARE PHYSICIAN:: [facility] POTENTIAL DISCHARGE NEEDS:: Follow up appointments PATIENT/FAMILY EDUCATION NEEDS:: Review discharge instructions, limitations, medications and plan to follow up with community providers. ask me three. TRANSPORTATION:: via private vehicle with family. PLAN:: Dennis requires hospitalization for IV abx and close monitoring. has been in contact with [facility] Orthopedics. Anticipate, Ana will discharge home when medically ready vs. transfer to [facility] if no improvement. ([facility]/ortho not available Tuesday). CM will continue to support discharge planning needs.
--- NOTE | 2022-03-20 16:49 | HPE_ITS ---
Date of service: 03/20/22 Time of Service: 16:50 Assessment and Plan Assessment and plan (1) Olecranon bursitis of left elbow: Status: Acute Assessment and plan: [facility] Orthopedics consulted by Dr. Finnegan and they state they do not aspirate a bursa as it could create a sinus tract which can continue to drain.? For olecranon bursitis, they recommend compression and oral antibiotics.? As pt has received IV antibiotics and has cellulitis, they do agree with plan for admission for IV antibiotics and to continue to monitor the bursa for drainage status post aspiration.? If infection does not respond to clindamycin, can consider switching to Keflex.? No indication for imaging unless there are co ncerning signs for effusion within the elbow joint and at that time can obtain an x-ray.? Recommend ESR/CRP.? Agree with plan for outpatient follow-up with orthopedics next week with strict return precautions. (2) Cellulitis of arm, left: Status: Acute History of Present Illness Narrative: Patient is a 76-year-old female with a past medical history of previous COVID-19, spinal stenosis, uterine cancer & hysterectomy in the distant past, previous orthopedic joint replacement, sick sinus syndrome with pacemaker placement who presenting today for left elbow and arm pain.? Patient remembers hitting her elbow 2 days ago and having increasing pain later that day. Pain subsided with Tylenol but came back; has pain 1/10 increasing to 6/10 with mobilization or palpation; no report of numbness, pruritus or tingling.? Review of Systems All systems reviewed & are unremarkable except as noted in HPI and below Constitutional Constitutional: Denies excessive sweating, Reports fatigue and Reports headache(s) Comments: Patient c/o increased tiredness Eyes Eyes: Denies blind spots, Denies blurry vision and Denies change in vision ENT Ears, Nose, Mouth, and Throat: Reports abnormal hearing and Reports headache(s) Cardiovascular Cardiovascular: Denies chest pain and Denies dyspnea Respiratory Respiratory: Denies dyspnea Gastrointestinal Gastrointestinal: Denies abdominal pain, Reports change in bowel habits, Reports diarrhea, Denies nausea, Denies vomiting and Denies hematemesis Genitourinary Genitourinary: Denies difficulty voiding Musculoskeletal Musculoskeletal: Reports as per HPI, Reports limited range of motion (left elbow) and Reports stiffness (left arm) Neurologic Neurologic: Reports abnormal hearing and Reports headache(s) Endocrine Endocrine: Denies excessive sweating and Reports fatigue PFSH All Active Problems (Updated 03/20/22 @ 18:50 by Digna Vo MD) Diarrhea (Acute) Discharge planning issues (Acute) DVT prophylaxis (Acute) Real time reverse transcriptase PCR positive for COVID-19 virus (Acute) Hypokalemia (Acute) Septic olecranon bursitis of left elbow (Acute) Olecranon bursitis of left elbow (Acute) Cellulitis of arm, left (Acute) Pneumonitis (Acute) Abnormal weight loss (Acute) Abdominal pain (Acute) MEDINA (dyspnea on exertion) (Acute) Medical History (Updated 03/20/22 @ 18:50 by Digna Vo MD) COVID-19 02/24/22 Elevated d-dimer evaluated for this by [facility] hem/onc in 04/2020 who recommended to not trend d- dimer in this patient Hypothyroidism (acquired) (05/03/18) Nonspecific interstitial pneumonitis Obesity (BMI 30.0-34.9) Sick sinus syndrome due to SA node dysfunction (02/03/18) dual chamber pacer 02/12 Spinal stenosis Uterine cancer s/p resection, radiation, in remission Surgical History (Updated 03/20/22 @ 18:38 by Digna Vo MD) H/O cervical spine surgery History of total right knee replacement S/p bilateral carpal tunnel release S/P hysterectomy with oophorectomy S/P placement of cardiac pacemaker S/P skin cancer resection LLE S/P tympanoplasty Status post replacement of both shoulder joints (05/03/18) Family History (Updated 03/20/22 @ 18:51 by Digna Vo MD) Mother Cancer intestinal carcinoid, lung carcinoid Father Cancer lung cancer Hypertension Sister Cancer aplastic anemia that had converted to a three letter combination (l ikely MDS) and then acute leukemia, of which she Social History (Updated 03/20/22 @ 18:39 by Digna Vo MD) Smoking/Tobacco Use Status: Former Tobacco Use Smoking risk assessment performed?: Yes Alcohol Intake: current Alcohol Intake frequency: a few times a month Alcohol type: other Drug use: Never Substance use type: does not use Details: occasionally uses CBD Do you feel safe at home: Yes Do you feel safe in your relationship?: Yes History History 2 Para 2 Hx # Term Pregnancies 2 Multiple births Hx # Pregnancies Ectopic pregnancies AB induced Hx Number of Living Children AB spontaneous Meds Allergies and Home Medications Allergies Allergy/AdvReac Type Severity Reaction Status Date / Time umeclidinium Allergy Intermediate rash Verified 03/20/22 04:34 [From Anoro Ellipta] vilanterol Allergy Intermediate rash Verified 03/20/22 04:34 [From Anoro Ellipta] hydrochlorothiazide Allergy Mild Itching Verified 03/20/22 04:34 nitrofurantoin Allergy Mild Itching Verified 03/20/22 04:34 [From Macrobid] nitrofurantoin Allergy Mild Itching Verified 03/20/22 04:34 macrocrystalline [From Macrobid] Penicillins Allergy Mild Itching Verified 03/20/22 04:34 pomegranate Allergy Mild Itching Verified 03/20/22 04:34 Home Medications Medication Instructions Recorded Confirmed Type cholecalciferol (vitamin D3) 25 2,000 unit PO DAILY 12/03/15 03/20/22 History mcg (1,000 unit) capsule (Vitamin D3) levothyroxine 50 mcg tablet 50 mcg PO DAILY #90 tab 03/05/21 03/20/22 Rx (Synthroid) albuterol sulfate 90 mcg/actuation 2 puff IH QID PRN 03/20/22 03/20/22 History aerosol inhaler Exam Narrative Exam Narrative: 1.Const: Well-nourished, Well-developed, appearing stated age 2.Eyes: PERRL, no conjunctival injection, and symmetrical lids. 3.ENT: Atraumatic external nose and ears. Moist MM. Neck: Symmetric, trachea midline, No thyromegaly. 4.CVS: +S1/S2, No murmurs or gallops. Peripheral pulses 2+ and equal in all extremities. Brisk capillary refill in all extremities. 5.RESP: Unlabored respiratory effort. Clear to auscultation bilaterally. No wheezes rales or rhonchi 6.GI: Soft, Nontender/Nondistended, No hepatosplenomegaly. No guarding or rebound. 7.MSK: Patient's left upper extremity demonstrates swelling around the elbow on the left over the olecranon. Appears to be a fluid-filled bursa. The redness here extends up the dorsal and ventral aspects of the arm but not circumferentially. It only appears to be on the medial dorsal aspect of the medial ventral aspect. No circumferential cellulitis. It stopped notably proximal to the wrist, and there is no extension to the hand. And demonstrates no swelling. No redness or warmth of the hand. Good capillary refill for all fingers. Good sensation. Normal strength of the hand and elbow and fingers. 8.Skin: No evidence of abscess. 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 Sensation grossly intact, no focal neurologic deficits. 10.Psych: (AAO) x3. Appropriate mood and affect Results Labs Result diagrams: 03/20/22 05:19 03/20/22 05:19 Labs: Laboratory Results - last 24 hr 03/20/22 03/20/22 03/20/22 05:00 05:00 05:19 WBC RBC Hgb Hct MCV MCH MCHC RDW Plt Count MPV Immature Gran % Neutrophils % Lymphocytes % Monocytes % Eosinophils % Basophils % Nucleated RBC % Absolute Neutrophils Absolute Lymphocytes Absolute Monocytes Absolute Eosinophils Absolute Basophils ESR D-Dimer VBG Lactate Sodium 135 L Potassium 3.4 L Chloride 102 Carbon Dioxide 24.8 Anion Gap 8.2 BUN 22 H Creatinine 1.3 H Estimated GFR/1.73 m2 39.61 Glucose 107 H Calcium 8.8 Total Bilirubin 2.0 H AST 17 ALT 19 Alkaline Phosphatase 65 C-Reactive Protein Total Protein 6.7 Albumin 3.1 L Fluid Source L Elbow Fluid Color Yellow Fluid Clarity Cloudy Fluid WBC 60803 Fld Polynuclear WBCs % 95 Fluid Mononuclear Cell 5 Fluid Crystals No Crystals seen Fluid Crystal Source L Elbow COVID-19 Source SARS-CoV-2 (PCR) 03/20/22 03/20/22 03/20/22 05:19 05:19 05:19 WBC 16.79 H RBC 4.00 Hgb 12.3 Hct 37.3 MCV 93.3 MCH 30.8 MCHC 33.0 RDW 11.9 Plt Count 141 MPV 10.8 Immature Gran % 2.1 Neutrophils % 86.2 Lymphocytes % 4.8 Monocytes % 6.7 Eosinophils % 0.0 Basophils % 0.2 Nucleated RBC % 0.0 Absolute Neutrophils 14.47 H Absolute Lymphocytes 0.81 L Absolute Monocytes 1.12 H Absolute Eosinophils 0.00 Absolute Basophils 0.03 ESR D-Dimer VBG Lactate 1.1 Sodium Potassium Chloride Carbon Dioxide Anion Gap BUN Creatinine Estimated GFR/1.73 m2 Glucose Calcium Total Bilirubin AST ALT Alkaline Phosphatase C-Reactive Protein 24.41 H Total Protein Albumin Fluid Source Fluid Color Fluid Clarity Fluid WBC Fld Polynuclear WBCs % Fluid Mononuclear Cell Fluid Crystals Fluid Crystal Source COVID-19 Source SARS-CoV-2 (PCR) 03/20/22 03/20/22 03/20/22 05:19 05:38 07:15 WBC RBC Hgb Hct MCV MCH MCHC RDW Plt Count MPV Immature Gran % Neutrophils % Lymphocytes % Monocytes % Eosinophils % Basophils % Nucleated RBC % Absolute Neutrophils Absolute Lymphocytes Absolute Monocytes Absolute Eosinophils Absolute Basophils ESR 50 H D-Dimer 1877 H VBG Lactate Sodium Potassium Chloride Carbon Dioxide Anion Gap BUN Creatinine Estimated GFR/1.73 m2 Glucose Calcium Total Bilirubin AST ALT Alkaline Phosphatase C-Reactive Protein Total Protein Albumin Fluid Source Fluid Color Fluid Clarity Fluid WBC Fld Polynuclear WBCs % Fluid Mononuclear Cell Fluid Crystals Fluid Crystal Source COVID-19 Source Nasal/Nares SARS-CoV-2 (PCR) POSITIVE A* Last Vital Signs Temp 97.5 F L 03/20/22 14:35 Pulse 60 03/20/22 14:35 Resp 17 03/20/22 14:35 BP 97/58 L 03/20/22 14:35 Pulse Ox 96 03/20/22 14:35 PAWSS Have you Been Recently Intoxicated or Drunk Within the Last 30 days?: No Have you Ever Experienced Previous Episodes of Alcohol Withdrawal?: No Have you ever Experienced Withdrawal Seizures?: No Have you ever Experienced Delirium Tremens(DT)s?: No Have you ever undergone Alcohol Rehabilitation Treatment (i.e, inpt ot outpatient treatment programs)?: No Have you ever Experienced Blackouts?: No Have you ever Combined Alcohol with other Downers within the last 90 days?: No Have you ever Combined Alcohol with any other Substance of Abuse during the last 90 days?: No Positive Blood Alcohol level on Presentation? [PCS.BAL]: No Evidence of Increased Autonomic Activity (i.e. HR>120, tremor, sweating, agitation, nausea)?: No Result: 0
--- NOTE | 2022-03-20 17:23 | HPE_ITS ---
Date of service: 03/20/22 Time of Service: 17:23 Assessment and Plan Assessment and plan (1) Septic olecranon bursitis of left elbow: Status: Acute Assessment and plan: Initiated on clindamycin in the ED, which we will continue. Await blood cultures. Trend CRP. Should blood cultures turn positive, there is a concern for seeding of the infection into any/all prostheses that the patient has including her pacemaker, B shoulder replacements, R knee replacement. In this case, we would have to consider transfer to a tertiary care facility where this could be further investigated. (2) Cellulitis of arm, left: Status: Acute Assessment and plan: As above (3) Hypokalemia: Status: Acute Assessment and plan: Replete, check magnesium (4) Elevated d-dimer: Assessment and plan: This is chronic. The patient had an evaluation for her chronically elevated d- dimer at [facility] in 04/2020 - at that time, it was felt to not represent a thromboembolic issue and further trending of her d-dimer was not recommended. (5) Real time reverse transcriptase PCR positive for COVID-19 virus: Status: Acute Assessment and plan: The patient has actually recovered from COVID-19 clinically and has a high cycling time (36.4), c/w no longer being infectious. Her current sx are not c/w active COVID-19 disease. She does not require isolation or antiviral therapy at this time. (6) Diarrhea: Status: Acute Assessment and plan: While on clindamycin. Checking C.diff. Prn loperamide. Add probiotic. Consider alternative antibiotic therapy. (7) DVT prophylaxis: Status: Acute Assessment and plan: SC enoxaparin (8) Discharge planning issues: Status: Acute Assessment and plan: Full code as per my conversation with the patient witnessed by her son. History of Present Illness History of Present Illness Chief Complaint: left elbow and arm pain Narrative: Ms Sierra is a 76 year old female with PMHx of COVID-19 diagnoses on 02/24/22, as well as h/o SSS s/p pacemaker, nonspecific d-dimer elevation previously evaluated by hematology in 2019, nonspecific pneumonitis, hypothyroidism, B shoulder and R knee prostheses in situ, who presented to [facility] ED overnight w/ complaints of L elbow pain and LUE redness following a gentle trauma to L elbow a couple of days prior, while moving, when she thinks she may have hit her elbow on something. Two days ago, the patient noticed a sudden onset of fatigue, malaise, poor appetite and went to sleep at an unusually early hour. She spent yesterday mostly sleeping and with very poor PO intake with the LUE swelling and pain worsening. In the ED, w/u was consistent with septic bursitis of olecranon bursa and cellulitis of LUEs. The patient had aspiration of her bursa in the ED. The patient was initiated on IV clindamycin per [facility] orthopedic recommendations who also recommended compression to the area and monitoring the patient for worsening symptoms overnight. We do not have orthopedic surgery in house for the next several days. Per ED provider, [facility] orthopedics did not feel that the patient necessitated transfer to [facility] for her sx, nor did she require imaging. Observation on hospitalist service was requested. Since arrival to the floor, the patient has had several liquid BMs with C.Diff test pending. She denies abdominal pain, n/v. She continues to endorse poor appetite. While her COVID-19 PCR remains positive, she does not currently have pulmonary sx, her cycling time is high, and she is not felt to be having active COVID-19 disease. She does have a chronic cough productive of clear sputum. Her son confirms that the cough that she has is c/w her chronic cough. She is fully vaccinated against COVID-19 and is s/p booster. Review of Systems Narrative: Additionally, reports a headache. No neck pain. All systems reviewed & are unremarkable except as noted in HPI and below PFSH All Active Problems (Updated 03/20/22 @ 18:50 by Digna Vo MD) Diarrhea (Acute) Discharge planning issues (Acute) DVT prophylaxis (Acute) Real time reverse transcriptase PCR positive for COVID-19 virus (Acute) Hypokalemia (Acute) Septic olecranon bursitis of left elbow (Acute) Olecranon bursitis of left elbow (Acute) Cellulitis of arm, left (Acute) Pneumonitis (Acute) Abnormal weight loss (Acute) Abdominal pain (Acute) MEDINA (dyspnea on exertion) (Acute) Medical History (Updated 03/20/22 @ 18:50 by Digna Vo MD) COVID-19 02/24/22 Elevated d-dimer evaluated for this by [facility] hem/onc in 04/2020 who recommended to not trend d-d gage in this patient Hypothyroidism (acquired) (05/03/18) Nonspecific interstitial pneumonitis Obesity (BMI 30.0-34.9) Sick sinus syndrome due to SA node dysfunction (02/03/18) dual chamber pacer 02/12 Spinal stenosis Uterine cancer s/p resection, radiation, in remission Surgical History (Updated 03/20/22 @ 18:38 by Digna Vo MD) H/O cervical spine surgery History of total right knee replacement S/p bilateral carpal tunnel release S/P hysterectomy with oophorectomy S/P placement of cardiac pacemaker S/P skin cancer resection LLE S/P tympanoplasty Status post replacement of both shoulder joints (05/03/18) Family History (Updated 03/20/22 @ 18:51 by Digna Vo MD) Mother Cancer intestinal carcinoid, lung carcinoid Father Cancer lung cancer Hypertension Sister Cancer aplastic anemia that had converted to a three letter combination (likely MDS) and then acute leukemia, of which she Social History (Updated 03/20/22 @ 18:39 by Digna Vo MD) Smoking/Tobacco Use Status: Former Tobacco Use Smoking risk assessment performed?: Yes Alcohol Intake: current Alcohol Intake frequency: a few times a month Alcohol type: other Drug use: Never Substance use type: does not use Details: occasionally uses CBD Do you feel safe at home: Yes Do you feel safe in your relationship?: Yes Meds Allergies and Home Medications Allergies Allergy/AdvReac Type Severity Reaction Status Date / Time umeclidinium Allergy Intermediate rash Verified 03/20/22 04:34 [From Anoro Ellipta] vilanterol Allergy Intermediate rash Verified 03/20/22 04:34 [From Anoro Ellipta] hydrochlorothiazide Allergy Mild Itching Verified 03/20/22 04:34 nitrofurantoin Allergy Mild Itching Verified 03/20/22 04:34 [From Macrobid] nitrofurantoin Allergy Mild Itching Verified 03/20/22 04:34 macrocrystalline [From Macrobid] Penicillins Allergy Mild Itching Verified 03/20/22 04:34 pomegranate Allergy Mild Itching Verified 03/20/22 04:34 Home Medications Medication Instructions Recorded Confirmed Type cholecalciferol (vitamin D3) 25 2,000 unit PO DAILY 12/03/15 03/20/22 History mcg (1,000 unit) capsule (Vitamin D3) levothyroxine 50 mcg tablet 50 mcg PO DAILY #90 tab 03/05/21 03/20/22 Rx (Synthroid) albuterol sulfate 90 mcg/actuation 2 puff IH QID PRN 03/20/22 03/20/22 History aerosol inhaler Exam Narrative Exam Narrative: General: Very pleasant female who appears tired, uncomfortable, A&Ox3, hearing impairement Neurological: A&Ox3, hearing impairment, otherwise no focal deficits Psychiatric: Appropriate speech pattern/content/mood/affect Skin: LUE elbow with an ecchymosis and erythema, feels warm, erythema extending down to the forearm. Wrist is spaired. Preserved radial pulse, sensation, and ROM of R wrist and hand. HEENT: Atraumatic, normocephalic, EOMI, dry MM, clear oropharynx, no submandibular or cervical lymphadenopathy, no goiter or JVD Cardiovascular: RRR, no m/r/g Lungs: CTAB, heard coughing once - nonproductive Gastrointestinal: soft, nontender, nondistended Genitourinary: deferred Extremities: Read skin for description of LUE. B shoulders without erythema/warmth/pain, as are B knees. 1+ pedal pulses B, no e/c/c. Results Labs Result diagrams: 03/20/22 05:19 03/20/22 05:19 Labs: Laboratory Results - last 24 hr 03/20/22 03/20/22 03/20/22 05:00 05:00 05:19 WBC RBC Hgb Hct MCV MCH MCHC RDW Plt Count MPV Immature Gran % Neutrophils % Lymphocytes % Monocytes % Eosinophils % Basophils % Nucleated RBC % Absolute Neutrophils Absolute Lymphocytes Absolute Monocytes Absolute Eosinophils Absolute Basophils ESR D-Dimer VBG Lactate Sodium 135 L Potassium 3.4 L Chloride 102 Carbon Dioxide 24.8 Anion Gap 8.2 BUN 22 H Creatinine 1.3 H Estimated GFR/1.73 m2 39.61 Glucose 107 H Calcium 8.8 Total Bilirubin 2.0 H AST 17 ALT 19 Alkaline Phosphatase 65 C-Reactive Protein Total Protein 6.7 Albumin 3.1 L Fluid Source L Elbow Fluid Color Yellow Fluid Clarity Cloudy Fluid WBC 44279 Fld Polynuclear WBCs % 95 Fluid Mononuclear Cell 5 Fluid Crystals No Crystals seen Fluid Crystal Source L Elbow COVID-19 Source SARS-CoV-2 (PCR) 03/20/22 03/20/22 03/20/22 05:19 05:19 05:19 WBC 16.79 H RBC 4.00 Hgb 12.3 Hct 37.3 MCV 93.3 MCH 30.8 MCHC 33.0 RDW 11.9 Plt Count 141 MPV 10.8 Immature Gran % 2.1 Neutrophils % 86.2 Lymphocytes % 4.8 Monocytes % 6.7 Eosinophils % 0.0 Basophils % 0.2 Nucleated RBC % 0.0 Absolute Neutrophils 14.47 H Absolute Lymphocytes 0.81 L Absolute Monocytes 1.12 H Absolute Eosinophils 0.00 Absolute Basophils 0.03 ESR D-Dimer VBG Lactate 1.1 Sodium Potassium Chloride Carbon Dioxide Anion Gap BUN Creatinine Estimated GFR/1.73 m2 Glucose Calcium Total Bilirubin AST ALT Alkaline Phosphatase C-Reactive Protein 24.41 H Total Protein Albumin Fluid Source Fluid Color Fluid Clarity Fluid WBC Fld Polynuclear WBCs % Fluid Mononuclear Cell Fluid Crystals Fluid Crystal Source COVID-19 Source SARS-CoV-2 (PCR) 03/20/22 03/20/22 03/20/22 05:19 05:38 07:15 WBC RBC Hgb Hct MCV MCH MCHC RDW Plt Count MPV Immature Gran % Neutrophils % Lymphocytes % Monocytes % Eosinophils % Basophils % Nucleated RBC % Absolute Neutrophils Absolute Lymphocytes Absolute Monocytes Absolute Eosinophils Absolute Basophils ESR 50 H D-Dimer 1877 H VBG Lactate Sodium Potassium Chloride Carbon Dioxide Anion Gap BUN Creatinine Estimated GFR/1.73 m2 Glucose Calcium Total Bilirubin AST ALT Alkaline Phosphatase C-Reactive Protein Total Protein Albumin Fluid Source Fluid Color Fluid Clarity Fluid WBC Fld Polynuclear WBCs % Fluid Mononuclear Cell Fluid Crystals Fluid Crystal Source COVID-19 Source Nasal/Nares SARS-CoV-2 (PCR) POSITIVE A* Last Vital Signs Temp 36.4 C L 03/20/22 14:35 Pulse 60 03/20/22 14:35 Resp 17 03/20/22 14:35 BP 97/58 L 03/20/22 14:35 Pulse Ox 96 03/20/22 14:35 PAWSS Have you Been Recently Intoxicated or Drunk Within the Last 30 days?: No Have you Ever Experienced Previous Episodes of Alcohol Withdrawal?: No Have you ever Experienced Withdrawal Seizures?: No Have you ever Experienced Delirium Tremens(DT)s?: No Have you ever undergone Alcohol Rehabilitation Treatment (i.e, inpt ot outpatient treatment programs)?: No Have you ever Experienced Blackouts?: No Have you ever Combined Alcohol with other Downers within the last 90 days?: No Have you ever Combined Alcohol with any other Substance of Abuse during the last 90 days?: No Positive Blood Alcohol level on Presentation? [PCS.BAL]: No Evidence of Increased Autonomic Activity (i.e. HR>120, tremor, sweating, agitation, nausea)?: No Result: 0
[2022-03-20] MEDS: Acetaminophen 325 MG TAB PO ×2 (17:52→23:33)
[2022-03-20 19:36] LABS: Lab Add On Test DONE
[2022-03-20] MEDS: Nystatin POWDER 60 GM JAR TP (20:02)
[2022-03-20 20:08] LABS: Procalcitonin 0.9 ng/mL
[2022-03-20] MEDS: Famotidine 20 MG TAB PO (21:40)
[2022-03-21] VITALS (8 sets, daily range): BP systolic 99–124; BP diastolic 58–72; PULSE 60–98; RESP 16–18; TEMP 36.6–38.3; O2SAT 93–98
[2022-03-21] MEDS: CLINDAMYCIN 600 MG/50 ML BAG 100 MG IVPB ×2 (00:18→06:34)
[2022-03-21] MEDS: Normal Saline 1,000 ML 125 ML IV ×2 (04:00→16:05)
[2022-03-21] MEDS: Levothyroxine 50 MCG TAB PO (06:34)
[2022-03-21 07:33] LABS: Abs Immature Grans 0.38 10^3/uL (0.0-0.06); Absolute Basophil Count 0.04 10^3/uL (0.0-0.2); Absolute Lymphocyte Count 0.76 10^3/uL (1.2-3.4); Absolute Monocyte Count 0.88 10^3/uL (0.1-0.8); Absolute Neutrophil Count 10.88 10^3/uL (1.2-6.7); Basophils % 0.3; Eosinophils % 1.5; HCT 33.2 % (36.0-46.0); HGB 10.9 g/dL (11.2-15.7); Immature Grans % 2.9; Lymphocytes % 5.8; MCHC 32.8 % (32.0-36.0); MCV 94.3 fL (80-95); Monocytes % 6.7; Neutrophils % 82.8; RBC 3.52 10^6/uL (3.93-5.22); RDW 12.1 % (11.7-14.6); RDW-SD 41.9 fL; WBC 13.14 10^3/uL (4.4-10.8)
[2022-03-21] MEDS: Cholecalciferol (Vitamin D3) 1,000 UNIT TAB 2000 UNITS PO (07:48)
[2022-03-21] MEDS: Nystatin POWDER 60 GM JAR TP ×3 (07:48→19:48)
[2022-03-21 07:50] LABS: Anion Gap 6.6 mmol/L (3-11); BUN 13 mg/dL (7-18); CO2 24.4 mmol/L (21.0-32.0); Calcium 8.4 mg/dL (8.5-10.1); Chloride 107 mmol/L (98-107); Estimated GFR 53.62 (mL/min/1.73m2); Glucose 92 mg/dL (74-106); Magnesium 2.1 mg/dL (1.8-2.4); Potassium 3.9 mmol/L (3.5-5.1); Sodium 138 mmol/L (136-145)
[2022-03-21 08:03] LABS: C-Reactive Protein > 25.00 mg/dL (0.0-0.3)
[2022-03-21] MEDS: Acetaminophen 325 MG TAB PO ×2 (09:53→19:47)
[2022-03-21] MEDS: Enoxaparin 40 MG/0.4 ML SYR SC (10:20)
[2022-03-21] MEDS: VANCOMYCIN/WATER (PEG) 1.5 GM/300 ML BAG IVPB (10:20)
[2022-03-21] MEDS: AZTREONAM 2,000 MG in Normal Saline 100 ML 200 MG IVPB ×2 (12:50→20:55)
--- NOTE | 2022-03-21 14:31 | PGE_ITS ---
Date of Service Date of service: 03/21/22 Time of Service: 14:31 Assessment and Plan Assessment and plan (1) Septic olecranon bursitis of left elbow: Status: Acute Assessment and plan: Wound c&S with staph and strep spp. Change abx to vanco/aztreonam. Await further speciation and sensitivities. Blood cultures recollected this am as still febrile. Blood cultures from yesterd ay are with NGTD. Trend CRP - worse today, but the WBC is better. Should blood cultures turn positive, there is a concern for seeding of the infection into any/all prostheses that the patient has including her pacemaker, B shoulder replacements, R knee replacement. In this case, we would have to consider transfer to a tertiary care facility where this could be further investigated. (2) Cellulitis of arm, left: Status: Acute Assessment and plan: As above (3) Hypokalemia: Status: Resolved Assessment and plan: Recheck in am (4) Elevated d-dimer: Assessment and plan: This is chronic. The patient had an evaluation for her chronically elevated d- dimer at [facility] [place] in 04/2020 - at that time, it was felt to not represent a thromboembolic issue and further trending of her d-dimer was not recommended. (5) Real time reverse transcriptase PCR positive for COVID-19 virus: Status: Acute Assessment and plan: The patient has actually recovered from COVID-19 clinically and has a high cycling time (36.4), c/w no longer being infectious. Her current sx are not c/w active COVID-19 disease. She does not require isolation or antiviral therapy at this time. (6) Diarrhea: Status: Resolved Assessment and plan: While on clindamycin. C. diff test cancelled as the patient since then had a more formed BM. Prn loperamide and probiotics prescribed. (7) DVT prophylaxis: Status: Acute Assessment and plan: SC enoxaparin (8) Discharge planning issues: Status: Acute Assessment and plan: Full code as per my conversation with the patient witnessed by her son. Subjective Subjective Interval history since last seen: Ms Sierra states she didn't feel very well this morning because I was febrile, but states she felt a lot better after the tylenol. She has noticed worsening swelling with compression, but this has improved post icing and elevation of the LUE. She has now noticed that the redness has receeded from the borders. Exam Narrative Exam Narrative: General: Very pleasant female who appears tired, A&Ox3, RAMONA, resting comfortably in bed while elevating her LUE. HEENT: EOMI, MMM Cardiovascular: RRR, no m/r/g Lungs: CTAB Gastrointestinal: soft, nontender, nondistended Extremities: LUE erythema has decreased significantly from yesterday; olecranon bursa ecchymosis still present, improved ROM at L elbow. Objective Last Vital Signs Temp 38 C H 03/21/22 11:25 Pulse 60 03/21/22 11:25 Resp 16 03/21/22 11:25 BP 99/59 L 03/21/22 11:25 Pulse Ox 93 03/21/22 11:25 Laboratory Results - last 24 hr 03/20/22 03/20/22 03/20/22 05:19 14:38 Unknown WBC RBC Hgb Hct MCV MCH MCHC RDW Plt Count MPV Immature Gran % Neutrophils % Lymphocytes % Monocytes % Eosinophils % Basophils % Nucleated RBC % Absolute Neutrophils Absolute Lymphocytes Absolute Monocytes Absolute Eosinophils Absolute Basophils Sodium Potassium Chloride Carbon Dioxide Anion Gap BUN Creatinine Estimated GFR/1.73 m2 Glucose Calcium Magnesium C-Reactive Protein Procalcitonin 0.9 Stl C.difficile Tox PCR Cancelled Add-On Test Request DONE 03/21/22 03/21/22 06:30 06:30 WBC 13.14 H RBC 3.52 L Hgb 10.9 L Hct 33.2 L MCV 94.3 MCH 31.0 MCHC 32.8 RDW 12.1 Plt Count MPV Immature Gran % 2.9 Neutrophils % 82.8 Lymphocytes % 5.8 Monocytes % 6.7 Eosinophils % 1.5 Basophils % 0.3 Nucleated RBC % 0.0 Absolute Neutrophils 10.88 H Absolute Lymphocytes 0.76 L Absolute Monocytes 0.88 H Absolute Eosinophils 0.20 Absolute Basophils 0.04 Sodium 138 Potassium 3.9 Chloride 107 Carbon Dioxide 24.4 Anion Gap 6.6 BUN 13 D Creatinine 1.0 Estimated GFR/1.73 m2 53.62 Glucose 92 Calcium 8.4 L Magnesium 2.1 C-Reactive Protein > 25.00 H Procalcitonin Stl C.difficile Tox PCR Add-On Test Request Objective Narrative Objective Narrative: Wound C&S preliminary: staph spp (rare) and strep spp (rare) PAWSS Have you Been Recently Intoxicated or Drunk Within the Last 30 days?: No Have you Ever Experienced Previous Episodes of Alcohol Withdrawal?: No Have you ever Experienced Withdrawal Seizures?: No Have you ever Experienced Delirium Tremens(DT)s?: No Have you ever undergone Alcohol Rehabilitation Treatment (i.e, inpt ot outpatient treatment programs)?: No Have you ever Experienced Blackouts?: No Have you ever Combined Alcohol with other Downers within the last 90 days?: No Have you ever Combined Alcohol with any other Substance of Abuse during the last 90 days?: No Positive Blood Alcohol level on Presentation? [PCS.BAL]: No Evidence of Increased Autonomic Activity (i.e. HR>120, tremor, sweating, agitation, nausea)?: No Result: 0
[2022-03-21] MEDS: Loperamide 2 MG CAP PO (15:17)
[2022-03-21] MEDS: VANCOMYCIN 750 MG in Normal Saline 250 ML 166.667 MG IVPB (18:40)
[2022-03-21] MEDS: Famotidine 20 MG TAB PO (20:55)
--- NOTE | 2022-03-22 | DI.CT_ITS ---
Exam(s) CT UPPER EXTREMITY LT W EXAM: CT UPPER EXTREMITY LT W CLINICAL HISTORY: septic olecranon bursitis, extensive cellulitis. TECHNIQUE: Imaging Protocol: Axial computed tomography images with coronal and sagittal reformatted images were created and reviewed. CONTRAST MATERIAL: Intravenous: Omnipaque 350. Contrast Volume: 100 ML COMPARISON: No exams were available for comparison FINDINGS: Bones: The osseous structures and articular surfaces are intact. Bony alignment is satisfactory. N o cellulitic or osteomyelitic changes are identified. There is no evidence of joint space narrowing or cystic degeneration seen. No lytic or sclerotic lesions are identified. Note is made of a left kevin ulder replacement. Soft Tissues: There is edema seen in the soft tissues of the upper arm and forearm. Edema is predomi nantly posteriorly located. No focal fluid collection is seen to suggest an abscess. Enhancement: No abnormal enhancement is identified. IMPRESSION: Cellulitis of the left upper extremity. No focal fluid collection is seen to suggest an abscess. No bony destructive changes are seen to suggest osteomyelitis. RADIATION DOSE DELIVERED: 588.77mGy.cm Total DLP 588.77mGy.cm Total DLP DATA REPOSITORY: All CT scans at this facility are submitted to the National Radiology Data Registry (NRDR) Dose Index Registry (DIR) with the [employer] (A[employer]). RADIATION OPTIMIZATION: All CT scans at this facility use at least one of these dose optimization te chniques: automated exposure control; mA and/or kV adjustment per patient size (includes targeted exa ms where dose is matched to clinical indication); or iterative reconstruction.
[2022-03-22] MEDS: Normal Saline 1,000 ML 125 ML IV ×2 (02:12→15:47)
[2022-03-22] MEDS: VANCOMYCIN 750 MG in Normal Saline 250 ML 166.667 MG IVPB (02:39)
[2022-03-22 03:00] VITALS: BP 105/60; PULSE 60; RESP 18; TEMP 37.7; O2SAT 94
[2022-03-22] MEDS: AZTREONAM 2,000 MG in Normal Saline 100 ML 200 MG IVPB ×2 (04:18→11:55)
[2022-03-22] MEDS: Levothyroxine 50 MCG TAB PO (05:47)
[2022-03-22 06:41] LABS: Abs Immature Grans 0.05 10^3/uL (0.0-0.06); Absolute Basophil Count 0.04 10^3/uL (0.0-0.2); Absolute Eosinophil Count 0.26 10^3/uL (0.0-0.7); Absolute Lymphocyte Count 1.09 10^3/uL (1.2-3.4); Absolute Monocyte Count 0.72 10^3/uL (0.1-0.8); Absolute Neutrophil Count 8.71 10^3/uL (1.2-6.7); Basophils % 0.4; Eosinophils % 2.4; HCT 31.3 % (36.0-46.0); HGB 10.2 g/dL (11.2-15.7); Immature Grans % 0.5; MCH 31.4 pg (27.0-33.0); MCHC 32.6 % (32.0-36.0); MCV 96.3 fL (80-95); MPV 10.1 fL (8.0-11.0); Monocytes % 6.6; Neutrophils % 80.1; Platelet Count 155 10^3/uL (130-400); RBC 3.25 10^6/uL (3.93-5.22); RDW 12.3 % (11.7-14.6); RDW-SD 43.6 fL; WBC 10.87 10^3/uL (4.4-10.8)
[2022-03-22] MEDS: Acetaminophen 325 MG TAB PO (06:42)
[2022-03-22 06:51] LABS: Anion Gap 6.4 mmol/L (3-11); BUN 12 mg/dL (7-18); C-Reactive Protein 18.52 mg/dL (0.0-0.3); CO2 23.6 mmol/L (21.0-32.0); CREATININE 0.9 mg/dL (0.55-1.02); Calcium 8.3 mg/dL (8.5-10.1); Chloride 108 mmol/L (98-107); Glucose 106 mg/dL (74-106); Magnesium 1.9 mg/dL (1.8-2.4); Potassium 3.7 mmol/L (3.5-5.1); Sodium 138 mmol/L (136-145)
[2022-03-22] MEDS: Cholecalciferol (Vitamin D3) 1,000 UNIT TAB 2000 UNITS PO (07:38)
[2022-03-22] MEDS: Nystatin POWDER 60 GM JAR TP ×2 (07:38→19:54)
[2022-03-22 08:19] LABS: Lab Add On Test DONE
[2022-03-22 08:39] VITALS: BP 128/65; PULSE 57; RESP 18; TEMP 37.5; O2SAT 94
[2022-03-22 09:02] LABS: Procalcitonin 0.5 ng/mL
[2022-03-22] MEDS: VANCOMYCIN 750 MG in Normal Saline 250 ML 167 MG IVPB (09:49)
[2022-03-22] MEDS: Enoxaparin 40 MG/0.4 ML SYR SC (09:49)
[2022-03-22 10:47] LABS: Lyme Ab w Rflx to Lyme Confirm Negative (Negative)
[2022-03-22 11:27] VITALS: BP 122/70; PULSE 60; RESP 18; TEMP 36.7; O2SAT 97
--- NOTE | 2022-03-22 11:56 | CMPROGNOTE_ITS ---
- If Service Date Differs Date of service: 03/22/22 Time of Service: 11:57 Care Management Progress Note S/O: Ana is alert, oriented, pleasant and is reportedly feeling much better. She has been up and walking in her room. Ana requires IV abx and has cultures pending. [facility] Ortho will be available on Tuesday. A: 76 year old female admitted to [facility] on 03/20/22 Olecranon bursitis of left elbow, Cellulitis of left arm P: Ana requires hospitalization for IV abx and close monitoring. has been in contact with [facility]. Anticipate, Ana will discharge home when medically ready. CM will continue to support discharge planning needs.
--- NOTE | 2022-03-22 14:16 | PGE_ITS ---
Date of Service Date of service: 03/22/22 Time of Service: 14:16 Assessment and Plan Assessment and plan (1) Septic olecranon bursitis of left elbow: Status: Acute Assessment and plan: Wound c&S with staph spp and strep pyogenes, further information pending. While bloodwork is better, clinically the patient is worse. Will obtain CT w/ contrast of LUE. Will change abx to vanco/clindamycin since she appeared to get better on clindamycin. Discussed with pharmacy who informed me that there is some strep resistance to aztreonam. Blood cultures from 03/20/22 NGTD x 48 hrs, 03/21/22 NGTD x 24 hrs. WBC, CRP, procalcitonin all better, but clinically worse. We do not have orthopedic surgery available until 03/24/22. May require transfer to a tertiary care facility. (2) Cellulitis of arm, left: Status: Acute Assessment and plan: As above (3) Hypokalemia: Status: Resolved Assessment and plan: Recheck in am (4) Elevated d-dimer: Assessment and plan: This is chronic. The patient had an evaluation for her chronically elevated d- dimer at [facility] [place] [place] in 04/2020 - at that time, it was felt to not represent a thromboembolic issue and further trending of her d-dimer was not recommended. (5) Real time reverse transcriptase PCR positive for COVID-19 virus: Status: Acute Assessment and plan: The patient has actually recovered from COVID-19 clinically and has a high cycling time (36.4), c/w no longer being infectious. Her current sx are not c/w active COVID-19 disease. She does not require isolation or antiviral therapy at this time. (6) Diarrhea: Status: Resolved Assessment and plan: While on clindamycin. C. diff test cancelled as the patient since then had a more formed BM. Prn loperamide and probiotics prescribed. (7) DVT prophylaxis: Status: Acute Assessment and plan: SC enoxaparin (8) Discharge planning issues: Status: Acute Assessment and plan: Full code as per my conversation with the patient witnessed by her son. May require transfer to a tertiary care facility. Subjective Subjective Interval history since last seen: Ms Sierra reports feeling worse this afternoon. She has noted that her LUE is more swollen, red, and that the redness is now extending beyond the circumscribed borders and is going up her arm and down to her wrist. She denies dizziness, chest pain, shortness of breath, nausea. She has no numbness/tingling in her LUE. She does have a Limited range of motion in the L elbow. Exam Narrative Exam Narrative: General: Very pleasant female who appears tired, A&Ox3, ELIM IRA, LUE looks worse HEENT: EOMI, MMM Cardiovascular: RRR, no m/r/g Lungs: CTAB Gastrointestinal: soft, nontender, nondistended Extremities: LUE erythema and swelling had increased and is now going beyond the circumscribed borders on the LUE; olecranon bursa ecchymosis still present, preserved ROM at wrist, preserved sensation; radial pulse palpable Objective Last Vital Signs Temp 36.7 C 03/22/22 11:27 Pulse 60 03/22/22 11:27 Resp 18 03/22/22 11:27 BP 122/70 03/22/22 11:27 Pulse Ox 97 03/22/22 11:27 Laboratory Results - last 24 hr 03/20/22 03/20/22 03/22/22 05:00 05:19 06:15 WBC RBC Hgb Hct MCV MCH MCHC RDW Plt Count MPV Immature Gran % Neutrophils % Lymphocytes % Monocytes % Eosinophils % Basophils % Nucleated RBC % Absolute Neutrophils Absolute Lymphocytes Absolute Monocytes Absolute Eosinophils Absolute Basophils Sodium 138 Potassium 3.7 Chloride 108 H Carbon Dioxide 23.6 Anion Gap 6.4 BUN 12 Creatinine 0.9 Estimated GFR/1.73 m2 >= 60.00 Glucose 106 Calcium 8.3 L Magnesium 1.9 C-Reactive Protein 18.52 H Procalcitonin Lyme Disease Antibody Negative Path Cons Comment SEE COMMENT Add-On Test Request 03/22/22 03/22/22 03/22/22 06:15 06:15 06:15 WBC 10.87 H RBC 3.25 L Hgb 10.2 L Hct 31.3 L MCV 96.3 H MCH 31.4 MCHC 32.6 RDW 12.3 Plt Count 155 MPV 10.1 Immature Gran % 0.5 Neutrophils % 80.1 Lymphocytes % 10.0 Monocytes % 6.6 Eosinophils % 2.4 Basophils % 0.4 Nucleated RBC % 0.0 Absolute Neutrophils 8.71 H Absolute Lymphocytes 1.09 L Absolute Monocytes 0.72 Absolute Eosinophils 0.26 Absolute Basophils 0.04 Sodium Potassium Chloride Carbon Dioxide Anion Gap BUN Creatinine Estimated GFR/1.73 m2 Glucose Calcium Magnesium C-Reactive Protein Procalcitonin 0.5 Lyme Disease Antibody Path Cons Comment Add-On Test Request DONE Objective Narrative Objective Narrative: CT w/ contrast LUE pending PAWSS Have you Been Recently Intoxicated or Drunk Within the Last 30 days?: No Have you Ever Experienced Previous Episodes of Alcohol Withdrawal?: No Have you ever Experienced Withdrawal Seizures?: No Have you ever Experienced Delirium Tremens(DT)s?: No Have you ever undergone Alcohol Rehabilitation Treatment (i.e, inpt ot outpatient treatment programs)?: No Have you ever Experienced Blackouts?: No Have you ever Combined Alcohol with other Downers within the last 90 days?: No Have you ever Combined Alcohol with any other Substance of Abuse during the last 90 days?: No Positive Blood Alcohol level on Presentation? [PCS.BAL]: No Evidence of Increased Autonomic Activity (i.e. HR>120, tremor, sweating, agitation, nausea)?: No Result: 0
[2022-03-22] MEDS: CLINDAMYCIN 600 MG/50 ML BAG 100 MG IVPB ×2 (15:14→19:54)
[2022-03-22 15:45] VITALS: BP 143/75; PULSE 60; RESP 18; TEMP 38.1; O2SAT 95
[2022-03-22] MEDS: Omnipaque 350 MG/ML 100 ML BTL IJ (16:26)
[2022-03-22 17:12] LABS: Vancomycin, Trough 16.1 ug/mL (10.0-20.0)
[2022-03-22] MEDS: VANCOMYCIN/WATER (PEG) 1 GM/200 ML BAG IVPB (18:08)
[2022-03-22 19:15] VITALS: BP 148/79; PULSE 60; RESP 18; TEMP 38; O2SAT 98
[2022-03-22 23:15] VITALS: BP 129/64; PULSE 60; RESP 18; TEMP 37.5; O2SAT 94
[2022-03-23] MEDS: CLINDAMYCIN 600 MG/50 ML BAG 100 MG IVPB ×4 (02:45→19:37)
[2022-03-23] MEDS: Acetaminophen 325 MG TAB PO ×2 (03:02→13:29)
[2022-03-23 03:10] VITALS: BP 134/67; PULSE 60; RESP 18; TEMP 37.4; O2SAT 93
[2022-03-23] MEDS: VANCOMYCIN/WATER (PEG) 1 GM/200 ML BAG IVPB (04:24)
[2022-03-23] MEDS: Levothyroxine 50 MCG TAB PO (06:13)
[2022-03-23 06:21] LABS: Abs Immature Grans 0.05 10^3/uL (0.0-0.06); Absolute Basophil Count 0.03 10^3/uL (0.0-0.2); Absolute Eosinophil Count 0.32 10^3/uL (0.0-0.7); Absolute Lymphocyte Count 1.15 10^3/uL (1.2-3.4); Absolute Monocyte Count 0.87 10^3/uL (0.1-0.8); Absolute Neutrophil Count 6.48 10^3/uL (1.2-6.7); Basophils % 0.3; Eosinophils % 3.6; HCT 28.6 % (36.0-46.0); HGB 9.3 g/dL (11.2-15.7); Immature Grans % 0.6; Lymphocytes % 12.9; MCH 31.2 pg (27.0-33.0); MCHC 32.5 % (32.0-36.0); MPV 10.3 fL (8.0-11.0); Monocytes % 9.8; Neutrophils % 72.8; Platelet Count 167 10^3/uL (130-400); RBC 2.98 10^6/uL (3.93-5.22); RDW 12.6 % (11.7-14.6); RDW-SD 44.1 fL
[2022-03-23 06:33] LABS: Anion Gap 6.9 mmol/L (3-11); BUN 8 mg/dL (7-18); C-Reactive Protein 13.91 mg/dL (0.0-0.3); CO2 24.1 mmol/L (21.0-32.0); CREATININE 0.9 mg/dL (0.55-1.02); Calcium 8.6 mg/dL (8.5-10.1); Chloride 108 mmol/L (98-107); Glucose 93 mg/dL (74-106); Magnesium 1.9 mg/dL (1.8-2.4); Potassium 3.7 mmol/L (3.5-5.1); Sodium 139 mmol/L (136-145)
[2022-03-23 08:29] VITALS: BP 131/75; PULSE 61; RESP 16; TEMP 36.4; O2SAT 95
[2022-03-23] MEDS: Cholecalciferol (Vitamin D3) 1,000 UNIT TAB 2000 UNITS PO (08:49)
[2022-03-23] MEDS: Nystatin POWDER 60 GM JAR TP ×2 (08:52→19:38)
[2022-03-23] MEDS: Normal Saline Flush 10 ML SYR IVP ×3 (08:55→19:37)
[2022-03-23] MEDS: Enoxaparin 40 MG/0.4 ML SYR SC (09:33)
--- NOTE | 2022-03-23 10:52 | PDOC.CMPRO ---
- If Service Date Differs Date of service: 03/23/22 Time of Service: 10:52 Care Management Progress Note S/O: Ana is alert, oriented, pleasant and cooperative. She reports feeling much better today. All of Ana's blood work indicates improvement in the infection. Her WBC has normalized and CRP and procalcitinin are coming down. Ana's left arm remains erythrematous and swollen but she did state that it is improved even from yesterday. Her temperature today has been normal. The final identification of the causative agent of the infection is Group A strep so Vancomycin was discontinued and she remains on Clindamycin. Ana had several questions about her blood work and treatment plan that CM was able to answer. A: Ana is a 76 year old female admitted to [facility] on 03/20/22 with Olecranon bursitis of left elbow, Cellulitis of left arm P: Ana requires hospitalization for IV abx and close monitoring. has been in contact with [facility]. Anticipate, Ana will discharge home when medically ready. CM will continue to support discharge planning needs.
--- NOTE | 2022-03-23 11:34 | IN_ITS ---
Date of service: 03/23/22 Time of Service: 11:34 PT Notes Visit Reasons: Cellulitis and Septic Bursitis L Elbow Physical Therapy Inpatient Initial Evaluation Date: 03/23/2022 Referring Doctor: Digna Vo MD PT Orders: PT CONSULT: Limited ability Precautions: Fall. Standard. Activity as tolerated. Patient Profile/Admitting Diagnosis: Ana is a 76-year-old female who presented to the ED on 03/20/2022 due to left elbow and arm pain which patient thinks she may have hit against something while moving things intoher new house. Patient is diagnosed with septic olecranon bursitis, cellulitis, hypokalemia, elevated D-dimer, previous COVID-infection a nd diarrhea. PMHX: All Active Problems?(Updated 03/20/22 @ 18:50 by Digna Vo MD) Diarrhea (Acute) Discharge planning issues (Acute) DVT prophylaxis (Acute) Real time reverse transcriptase PCR positive for COVID-19 virus (Acute) Hypokalemia (Acute) Septic olecranon bursitis of left elbow (Acute) Olecranon bursitis of left elbow (Acute) Cellulitis of arm, left (Acute) Pneumonitis (Acute) Abnormal weight loss (Acute) Abdominal pain (Acute) MEDINA (dyspnea on exertion) (Acute) Medical History?(Updated 03/20/22 @ 18:50 by Digna Vo MD) COVID-19 02/24/22 Elevated d-dimer evaluated for this by [facility] hem/onc in 04/2020 who recommended to not trend d- dimer in this patient Hypothyroidism (acquired) (05/03/18) Nonspecific interstitial pneumonitis Obesity (BMI 30.0-34.9) Sick sinus syndrome due to SA node dysfunction (02/03/18) dual chamber pacer 02/12 Spinal stenosis Uterine cancer s/p resection, radiation, in remission Surgical History?(Updated 03/20/22 @ 18:38 by Digna Vo MD) H/O cervical spine surgery History of total right knee replacement S/p bilateral carpal tunnel release S/P hysterectomy with oophorectomy S/P placement of cardiac pacemaker S/P skin cancer resection LLE S/P tympanoplasty 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 recently . Independent with all aspects of ADLs prior to admission. Lives a very active lifestyle--skis and bikes. Equipment Owned/DME: None Subjective: Agreeable to a one time consult. Reports some pain in R knee whichc she attributes to not being able to walk as much as she did prior to admission. Willing to learn exercises that she can do to help minimize swelling and regain active range of motion in L elbow. States that redness to L UE has significantly subsided. Pain considerably decreased when she moves her extremity which is a lot better than yesterday. Objective: General Observation: Seated on chair. Mental Status: Alert and oriented as to person, place, time, and purpose. Able to pay attention, focus, and respond appropriately. Pain: 12/07 in L UE Vital Signs: WNL as closely monitored by nursing staff ROM: Right Upper Extremity: Shoulder Flexion WFL. Shoulder abduction WFL. Elbow flexion WFL. Wrist flexion WFL. Functional opening and closing of hand WFL. Left Upper Extremity: Shoulder Flexion WFL. Shoulder abduction lacks the last 15 degrees of AROM. Elbow flexion lacks the last 10 degrees of AROM. Wrist flexi on WFL. Functional opening and closing of hand WFL. Right Lower Extremity: Hip flexion WFL. Hip abduction WFL. Knee flexion WFL. Ankle dorsiflexion WFL. Ankle plantarflexion WFL. Left Lower Extremity: Hip flexion WFL. Hip abduction WFL. Knee flexion WFL. Ankle dorsiflexion WFL. Ankle plantarflexion WFL. Strength: Right Upper Extremity: Shoulder flexors 5/5. Shoulder abductors 5/5. Elbow flexors 5/5. Elbow extensors 5/5. Office Clerk strong. Left Upper Extremity: Shoulder flexors 4-/5. Shoulder abductors 3-/5. Elbow flexors 3-/5. Elbow extensors 3-/5. Office Clerk strong. Right Lower Extremity: Hip flexors 5/5. Hip abductors 5/5. Knee flexors 5/5. Knee extensors 5/5. Ankle dorsiflexors 5/5. Ankle plantarflexors 5/5. Left Lower Extremity: Hip flexors 5/5. Hip abductors 5/5. Knee flexors 5/5. Knee extensors 5/5. Ankle dorsiflexors 5/5. Ankle plantarflexors 5/5. Bed Mobility/Transfers: Rolling independent Supine to sit independent Sit to supine independent Sit to stand independent Stand to sit independent Bed to reclining chair independent Reclining chair to bed independent Gait: Instructed patient with level surface ambulation of 300 feet independently without an assistive device. R knee pain resolved. Balance: Static Sitting: Normal Dynamic Sitting: Normal Static Standing: Normal Dynamic Standing: Good Special Tests: Mobility Limitations Standardized Measure [facility] AM-PAC 6 clicks Basic Mobility Inpatient Short Form: Raw Score: 24 CMS Score: 0% deficit Informed Consent/Education: Patient was instructed in purpose of PT consult and plan of care. Agreeable to proceed with established PT POC to achieve personal goals. Assessment: Patient is independent with all aspects of ADLs and demonstrates limited active range of motion at the elbow wrist and fingers due to pain and swelling from cellulitis and olecranon bursitis. Limitation in left shoulder ROM is a chronic issue from previous shoulder surgery. Patient will need to be provided with exercises for left upper extremity and will be discharged from PT services after that visit. Patient is assessed as a 81012 low complexity based on the following: History: 76-year-old female with past medical history as indicated above Examination: Demonstrable impairment in strength, balance, and mobility level with underlying impairments and functional limitations as exhibited above as well as deficit score of 0% utilizing the [facility] Mobility Inpatient Short Form Presentation: Stable Decision Makin low complexity Goals: N/A. PT evaluation 1 treatment only for HEP training. Plan of Care/Treatment Plan: N/A. PT evaluation 1 treatment only for HEP training. DISCHARGE RECOMMENDATIONS: Home when medically cleared by hospitalist. TREATMENT CODE/TIME: 12666 x 25 minutes beginning at 11:34 AM. Thank you for the opportunity to participate in the care of this patient. Sabi Osborn PT, DPT, CLT [facility] [place], [place]
--- NOTE | 2022-03-23 14:24 | W.PM.PROGNOT ---
Date of Service Date of service: 03/23/22 Time of Service: 14:25 Assessment and Plan Assessment and plan (1) Septic olecranon bursitis of left elbow: Status: Acute Assessment and plan: Wound c&S with strep pyogenes (no staph as previously reported) While bloodwork is better, clinically better today as well. CT w/ contrast of LUE w/o abscess or evidence of osteomyelitis. Will change abx to clindamycin only. Blood cultures from 03/20/22 NGTD x 72 hrs, 03/21/22 NGTD x 48 hrs. WBC, CRP, procalcitonin all better (2) Cellulitis of arm, left: Status: Acute Assessment and plan: As above. Erythema is fading in intensity. (3) Hypokalemia: Status: Resolved Assessment and plan: Now normal at 3.7 (4) Real time reverse transcriptase PCR positive for COVID-19 virus: Status: Acute Assessment and plan: The patient has actually recovered from COVID-19 clinically and has a high cycling time (36.4), c/w no longer being infectious. Her current sx are not c/w active COVID-19 disease. She does not require isolation or antiviral therapy at this time. (5) Diarrhea: Status: Resolved Assessment and plan: While on clindamycin. C. diff test cancelled as the patient since then had a more formed BM. Prn loperamide and probiotics prescribed. (6) DVT prophylaxis: Status: Acute Assessment and plan: SC enoxaparin (7) Discharge planning issues: Status: Acute Assessment and plan: Full code as per my conversation with the patient witnessed by her son. May require transfer to a tertiary care facility. (8) Elevated d-dimer: Assessment and plan: This is chronic. The patient had an evaluation for her chronically elevated d-dimer at [facility] in 04/2020 - at that time, it was felt to not represent a thromboembolic issue and further trending of her d-dimer was not recommended. Subjective Subjective Patient reports: feels better and afebrile Interval history since last seen: She is able to flex and extend her left elbow better today. Exam Narrative Exam Narrative: General: Very pleasant female who is very conversant and pleasant. Non-toxic appearing. HEENT: EOMI, MMM Cardiovascular: RRR, no m/r/g Lungs: CTAB Gastrointestinal: soft, nontender, nondistended Extremities: LUE erythema and swelling has decreased. olecranon bursa ecchymosis still present, preserved ROM at wrist, increased ROM of left elbow. Preserved sensation; radial pulse palpable Objective Last Vital Signs Temp 36.4 C L 03/23/22 08:29 Pulse 61 03/23/22 08:29 Resp 16 03/23/22 08:29 BP 131/75 03/23/22 08:29 Pulse Ox 95 03/23/22 08:29 Laboratory Results - last 24 hr 03/22/22 03/23/22 03/23/22 16:50 05:57 05:57 WBC 8.90 RBC 2.98 L Hgb 9.3 L Hct 28.6 L MCV 96.0 H MCH 31.2 MCHC 32.5 RDW 12.6 Plt Count 167 MPV 10.3 Immature Gran % 0.6 Neutrophils % 72.8 Lymphocytes % 12.9 Monocytes % 9.8 Eosinophils % 3.6 Basophils % 0.3 Nucleated RBC % 0.0 Absolute Neutrophils 6.48 Absolute Lymphocytes 1.15 L Absolute Monocytes 0.87 H Absolute Eosinophils 0.32 Absolute Basophils 0.03 Sodium 139 Potassium 3.7 Chloride 108 H Carbon Dioxide 24.1 Anion Gap 6.9 BUN 8 Creatinine 0.9 Estimated GFR/1.73 m2 >= 60.00 Glucose 93 Calcium 8.6 Magnesium 1.9 C-Reactive Protein 13.91 H Vancomycin Trough 16.1 PAWSS Have you Been Recently Intoxicated or Drunk Within the Last 30 days?: No Have you Ever Experienced Previous Episodes of Alcohol Withdrawal?: No Have you ever Experienced Withdrawal Seizures?: No Have you ever Experienced Delirium Tremens(DT)s?: No Have you ever undergone Alcohol Rehabilitation Treatment (i.e, inpt ot outpatient treatment programs)?: No Have you ever Experienced Blackouts?: No Have you ever Combined Alcohol with other Downers within the last 90 days?: No Have you ever Combined Alcohol with any other Substance of Abuse during the last 90 days?: No Positive Blood Alcohol level on Presentation? [PCS.BAL]: No Evidence of Increased Autonomic Activity (i.e. HR>120, tremor, sweating, agitation, nausea)?: No Result: 0
[2022-03-23 15:14] VITALS: BP 132/67; PULSE 87; RESP 16; TEMP 37.2; O2SAT 96
[2022-03-23 17:02] LABS: Bilirubin Negative (Negative); Blood Negative (Negative); Clarity Clear (Clear); Glucose Negative (Negative); Ketones Negative (Negative); Leukocyte Esterase Negative (Negative); Nitrite Negative (Negative); Specific Gravity 1.025 (1.005-1.025); Urobilinogen 0.2 EU/dL (Up TO 0.2)
[2022-03-23 19:50] VITALS: BP 119/67; PULSE 60; RESP 19; TEMP 36.8; O2SAT 97
[2022-03-23] MEDS: Famotidine 20 MG TAB PO (20:58)
[2022-03-23] MEDS: Albuterol HFA 8 GM 60 PUFF INH IH (20:59)
[2022-03-23 22:01] LABS: Anaplasma phagocytophilum Negative (Negative); B. miyamotoi PCR Negative (Negative); Babesia divergens/MO-1 Negative (Negative); Babesia duncani Negative (Negative); Babesia microti Negative (Negative); Ehrlichia chaffeensis Negative (Negative); Ehrlichia ewingii/canis Negative (Negative); Ehrlichia muris eauclairensis Negative (Negative)
[2022-03-23 23:00] VITALS: BP 129/68; PULSE 63; RESP 19; TEMP 37.4; O2SAT 95
--- NOTE | 2022-03-24 | DI.RAD_ITS ---
Exam(s) XR ELBOW LT COMPLETE EXAM: XR ELBOW LT COMPLETE CLINICAL HISTORY: Olecranon bursitis. TECHNIQUE: 2D digital imaging was performed. Three views. COMPARISON: No exams were available for comparison FINDINGS: BONES: No acute fracture is present. No bony destructive lesion is seen. JOINTS: The elbow is normally aligned. No joint effusion is seen. SOFT TISSUE: Swelling over the olecranon. No gas collection or foreign body. IMPRESSION: Soft tissue swelling over the olecranon. DATA REPOSITORY: RADIATION DOSE DELIVERED:
[2022-03-24] MEDS: CLINDAMYCIN 600 MG/50 ML BAG 100 MG IVPB ×2 (01:49→08:46)
[2022-03-24] MEDS: Albuterol HFA 8 GM 60 PUFF INH IH (01:49)
[2022-03-24] MEDS: Acetaminophen 325 MG TAB PO (01:49)
[2022-03-24 03:00] VITALS: BP 122/73; PULSE 60; RESP 18; TEMP 36.3; O2SAT 94
[2022-03-24] MEDS: Levothyroxine 50 MCG TAB PO (05:44)
[2022-03-24 06:33] LABS: Abs Immature Grans 0.11 10^3/uL (0.0-0.06); Absolute Basophil Count 0.03 10^3/uL (0.0-0.2); Absolute Eosinophil Count 0.26 10^3/uL (0.0-0.7); Absolute Lymphocyte Count 1.15 10^3/uL (1.2-3.4); Absolute Monocyte Count 0.77 10^3/uL (0.1-0.8); Absolute Neutrophil Count 4.07 10^3/uL (1.2-6.7); Basophils % 0.5; Eosinophils % 4.1; HGB 9.6 g/dL (11.2-15.7); Immature Grans % 1.7; MCHC 33.1 % (32.0-36.0); MCV 93.5 fL (80-95); MPV 10.4 fL (8.0-11.0); Monocytes % 12.1; Neutrophils % 63.6; Platelet Count 195 10^3/uL (130-400); RDW 12.6 % (11.7-14.6); RDW-SD 43.2 fL; WBC 6.39 10^3/uL (4.4-10.8)
[2022-03-24 06:54] LABS: ALT 57 U/L (14-59); AST 55 U/L (15-37); Albumin 2.3 g/dL (3.4-5.0); Alkaline Phosphatase 142 U/L (46-116); Anion Gap 6.8 mmol/L (3-11); BUN 10 mg/dL (7-18); Bilirubin, Total 0.5 mg/dL (0.2-1.0); C-Reactive Protein 10.25 mg/dL (0.0-0.3); CO2 26.2 mmol/L (21.0-32.0); CREATININE 0.9 mg/dL (0.55-1.02); Calcium 8.7 mg/dL (8.5-10.1); Chloride 107 mmol/L (98-107); Glucose 99 mg/dL (74-106); Potassium 3.5 mmol/L (3.5-5.1); Sodium 140 mmol/L (136-145)
[2022-03-24 08:23] VITALS: BP 142/73; PULSE 60; RESP 17; TEMP 36.6; O2SAT 96
[2022-03-24] MEDS: Cholecalciferol (Vitamin D3) 1,000 UNIT TAB 2000 UNITS PO (08:45)
[2022-03-24] MEDS: Normal Saline Flush 10 ML SYR IVP (08:45)
[2022-03-24] MEDS: Nystatin POWDER 60 GM JAR TP ×2 (08:46→21:00)
[2022-03-24] MEDS: Enoxaparin 40 MG/0.4 ML SYR SC (10:02)
--- NOTE | 2022-03-24 10:11 | PDOC.CMPRO ---
- If Service Date Differs Date of service: 03/24/22 Time of Service: 10:11 Care Management Progress Note S/O: Ana transitioned to oral ABX today, clinically she is improving and feeling better. She had imaging, labs and worked with PT today. She was discharged from PT today. Anticipate Ana will be discharged home when medically cleared by provider. A: Ana is a 76 year old female admitted to [facility] on 03/20/22 with Olecranon bursitis of left elbow, Cellulitis of left arm P: Ana requires hospitalization for IV abx and close monitoring. has been in contact with [facility]. Anticipate, Ana will discharge home when medically ready. CM will continue to support discharge planning needs.
[2022-03-24 12:36] VITALS: BP 131/81; PULSE 60; RESP 14; TEMP 37; O2SAT 96
--- NOTE | 2022-03-24 15:30 | INDS_ITS ---
Date of service: 03/24/22 Time of Service: 10:07 PT Notes Visit Reasons: Cellulitis and Septic Bursitis L Elbow Physical Therapy Inpatient Discharge Summary Date: 03/24/2022 Dates of Service: 03/23/2022 through 03/24/2022 This is a clinical summary of care provided for the duration of dates listed above. No charge was made in the completion of this documentation. Referring Doctor:? Digna Vo MD PT Orders: PT CONSULT: Limited ability Precautions: Fall. Standard. Activity as tolerated. Patient Profile/Admitting Diagnosis:? Ana is a 76-year-old female who presented to the ED on 03/20/2022 due to left elbow and arm pain which patient thinks she may have hit against something while moving things intoher new house.? Patient is diagnosed with septic olecranon bursitis, cellulitis, hypokalemia, elevated D-dimer, previous COVID-infection and diarrhea. PMHX: All Active Problems?(Updated 03/20/22 @ 18:50 by Digna Vo MD) Diarrhea (Acute) Discharge planning issues (Acute) DVT prophylaxis (Acute) Real time reverse transcriptase PCR positive for COVID-19 virus (Acute) Hypokalemia (Acute) Septic olecranon bursitis of left elbow (Acute) Olecranon bursitis of left elbow (Acute) Cellulitis of arm, left (Acute) Pneumonitis (Acute) Abnormal weight loss (Acute) Abdominal pain (Acute) MEDINA (dyspnea on exertion) (Acute) Medical History?(Updated 03/20/22 @ 18:50 by Digna Vo MD) COVID-19 02/24/22 Elevated d-dimer evaluated for this by [facility] in 04/2020 who recommended to not trend d- dimer in this patient Hypothyroidism (acquired) (05/03/18) Nonspecific interstitial pneumonitis Obesity (BMI 30.0-34.9) Sick sinus syndrome due to SA node dysfunction (02/03/18) dual chamber pacer 02/12 Spinal stenosis Uterine cancer s/p resection, radiation, in remission Surgical History?(Updated 03/20/22 @ 18:38 by Digna Vo MD) H/O cervical spine surgery History of total right knee replacement S/p bilateral carpal tunnel release S/P hysterectomy with oophorectomy S/P placement of cardiac pacemaker S/P skin cancer resection LLE S/P tympanoplasty Status post replacement of both shoulder joints (05/03/18) Social History/Home Situation: Newly moved to her house in [place].? recently .? Independent with all aspects of ADLs prior to admission.? Lives a very active lifestyle--skis and bikes. Equipment Owned/DME: None Subjective: NT. See most recent COMMUNICATION EQUIPMENT MECHANIC notes. Objective: General Observation:? NT. See most recent COMMUNICATION EQUIPMENT MECHANIC notes. Mental Status: NT. See most recent COMMUNICATION EQUIPMENT MECHANIC notes. Pain: NT. See most recent COMMUNICATION EQUIPMENT MECHANIC notes. Vital Signs: NT. See most recent COMMUNICATION EQUIPMENT MECHANIC notes. ROM: Right Upper Extremity: ? Shoulder Flexion WFL. Shoulder abduction WFL. Elbow flexion WFL. Wrist flexion WFL. Functional opening and closing of hand WFL. Left Upper Extremity:? Shoulder Flexion WFL.? Shoulder abduction lacks the last 15 degrees of AROM. Elbow flexion lacks the last 10 degrees of AROM. Wrist flexion WFL. Functional opening and closing of hand WFL. Right Lower Extremity: Hip flexion WFL. Hip abduction WFL. Knee flexion WFL. Ankle dorsiflexion WFL. Ankle plantarflexion WFL. Left Lower Extremity: Hip flexion WFL. Hip abduction WFL. Knee flexion WFL. Ankle dorsiflexion WFL. Ankle plantarflexion WFL. Strength: Right Upper Extremity: Shoulder flexors 5/5. Shoulder abductors 5/5. Elbow flexors 5/5. Elbow extensors 5/5. [employer] strong. Left Upper Extremity: Shoulder flexors 4-/5. Shoulder abductors 3-/5. Elbow flexors 3-/5. Elbow extensors 3-/5. [employer] strong. Right Lower Extremity: Hip flexors 5/5. Hip abductors 5/5. Knee flexors 5/5. Knee extensors 5/5. Ankle dorsiflexors 5/5. Ankle plantarflexors 5/5. Left Lower Extremity: Hip flexors 5/5. Hip abductors 5/5. Knee flexors 5/5. Knee extensors 5/5. Ankle dorsiflexors 5/5. Ankle plantarflexors 5/5. Bed Mobility/Transfers: Rolling independent Supine to sit independent Sit to supine independent Sit to stand independent Stand to sit independent Bed to reclining chair independent Reclining chair to bed independent Gait: Instructed patient with level surface ambulation of 300 feet independently without an assistive device. R knee pain resolved. Balance: Static Sitting: Normal Dynamic Sitting: Normal Static Standing: Normal Dynamic Standing: Good Assessment: Patient is independent with all aspects of ADLs and demonstrates limited active range of motion at the elbow wrist and fingers due to pain and swelling from cellulitis and olecranon bursitis.? Limitation in left shoulder ROM is a chronic issue from previous shoulder surgery.? Patient will need to be provided with exercises for left upper extremity and will be discharged from PT services after that visit. Goals: N/A.? PT evaluation 1 treatment only for HEP training. Plan of Care/Treatment Plan: N/A.? PT evaluation 1 treatment only for HEP training. DISCHARGE RECOMMENDATIONS: Home when medically cleared by hospitalist. TREATMENT CODE/TIME: NC Thank you for the opportunity to participate in the care of this patient. Sabi Osborn PT, DPT, CLT [facility] [place], [place]
--- NOTE | 2022-03-24 15:47 | W.PM.PROGNOT ---
Date of Service Date of service: 03/24/22 Time of Service: 15:47 Assessment and Plan Assessment and plan (1) Septic olecranon bursitis of left elbow: Status: Acute Assessment and plan: Wound c&S with strep pyogenes (no staph as previously reported) While bloodwork is better, clinically better today as well. CT w/ contrast of LUE w/o abscess or evidence of osteomyelitis. Lost peripheral catheter; changed to oral clindamycin. Blood cultures from 03/20/22 NGTD x 96 hrs, 03/21/22 NGTD x 72 hrs. WBC, CRP, procalcitonin all better (2) Cellulitis of arm, left: Status: Acute Assessment and plan: As above. (3) Hypokalemia: Status: Resolved Assessment and plan: Now normal at 3.7 (4) Real time reverse transcriptase PCR positive for COVID-19 virus: Status: Acute Assessment and plan: The patient has actually recovered from COVID-19 clinically and has a high cycling time (36.4), c/w no longer being infectious. Her current sx are not c/w active COVID-19 disease. She does not require isolation or antiviral therapy at this time. (5) Diarrhea: Status: Resolved Assessment and plan: While on clindamycin. C. diff test cancelled as the patient since then had a more formed BM. Prn loperamide and probiotics prescribed. (6) DVT prophylaxis: Status: Acute Assessment and plan: SC enoxaparin (7) Discharge planning issues: Status: Acute Assessment and plan: Full code as per my conversation with the patient witnessed by her son. May require transfer to a tertiary care facility. (8) Elevated d-dimer: Assessment and plan: This is chronic. The patient had an evaluation for her chronically elevated d-dimer at [facility] in 04/2020 - at that time, it was felt to not represent a thromboembolic issue and further trending of her d-dimer was not recommended. Subjective Subjective Patient reports: no new complaints, feels better and afebrile; denies nausea, vomiting or shortness of breath Exam Narrative Exam Narrative: General: Very pleasant female who is very conversant and pleasant. Non-toxic appearing. HEENT: EOMI, MMM Cardiovascular: RRR, no m/r/g Lungs: CTAB Gastrointestinal: soft, nontender, nondistended Extremities: LUE erythema is somewhat more pronounced after elevating the arm with stockinette/hanging from IV pole. Swelling has +/- decreased. olecranon bursa ecchymosis still present, preserved ROM at wrist, increased ROM of left elbow. Preserved sensation; radial pulse palpable Objective Last Vital Signs Temp 37.0 C 03/24/22 12:36 Pulse 60 03/24/22 12:36 Resp 14 03/24/22 12:36 BP 131/81 03/24/22 12:36 Pulse Ox 96 03/24/22 12:36 Laboratory Results - last 24 hr 03/20/22 03/23/22 03/24/22 05:19 16:00 06:00 WBC RBC Hgb Hct MCV MCH MCHC RDW Plt Count MPV Immature Gran % Neutrophils % Lymphocytes % Monocytes % Eosinophils % Basophils % Nucleated RBC % Absolute Neutrophils Absolute Lymphocytes Absolute Monocytes Absolute Eosinophils Absolute Basophils Sodium 140 Potassium 3.5 Chloride 107 Carbon Dioxide 26.2 Anion Gap 6.8 BUN 10 Creatinine 0.9 Estimated GFR/1.73 m2 >= 60.00 Glucose 99 Calcium 8.7 Total Bilirubin 0.5 AST 55 H ALT 57 Alkaline Phosphatase 142 H C-Reactive Protein 10.25 H Total Protein 6.0 L Albumin 2.3 L Urine Color Yellow Urine Clarity Clear Urine pH 6.0 Ur Specific [place] 1.025 Urine Protein Negative Urine Ketones Negative Urine Blood Negative Urine Nitrite Negative Urine Bilirubin Negative Urine Urobilinogen 0.2 Ur Leukocyte Esterase Negative Urine Glucose Negative A.phagocytophil DNA PCR Negative B. divergens/MO-1 PCR Negative Babesia duncani (PCR) Negative Babesia microti DNA PCR Negative Borrelia (PCR) Negative E.chaffeensis DNA (PCR) Negative E.ewingii/canis DNA PCR Negative E. muris-like DNA (PCR) Negative 03/24/22 06:00 WBC 6.39 RBC 3.10 L Hgb 9.6 L Hct 29.0 L MCV 93.5 MCH 31.0 MCHC 33.1 RDW 12.6 Plt Count 195 MPV 10.4 Immature Gran % 1.7 Neutrophils % 63.6 Lymphocytes % 18.0 Monocytes % 12.1 Eosinophils % 4.1 Basophils % 0.5 Nucleated RBC % 0.0 Absolute Neutrophils 4.07 Absolute Lymphocytes 1.15 L Absolute Monocytes 0.77 Absolute Eosinophils 0.26 Absolute Basophils 0.03 Sodium Potassium Chloride Carbon Dioxide Anion Gap BUN Creatinine Estimated GFR/1.73 m2 Glucose Calcium Total Bilirubin AST ALT Alkaline Phosphatase C-Reactive Protein Total Protein Albumin Urine Color Urine Clarity Urine pH Ur Specific [place] Urine Protein Urine Ketones Urine Blood Urine Nitrite Urine Bilirubin Urine Urobilinogen Ur Leukocyte Esterase Urine Glucose A.phagocytophil DNA PCR B. divergens/MO-1 PCR Babesia duncani (PCR) Babesia microti DNA PCR Borrelia (PCR) E.chaffeensis DNA (PCR) E.ewingii/canis DNA PCR E. muris-like DNA (PCR) PAWSS Have you Been Recently Intoxicated or Drunk Within the Last 30 days?: No Have you Ever Experienced Previous Episodes of Alcohol Withdrawal?: No Have you ever Experienced Withdrawal Seizures?: No Have you ever Experienced Delirium Tremens(DT)s?: No Have you ever undergone Alcohol Rehabilitation Treatment (i.e, inpt ot outpatient treatment programs)?: No Have you ever Experienced Blackouts?: No Have you ever Combined Alcohol with other Downers within the last 90 days?: No Have you ever Combined Alcohol with any other Substance of Abuse during the last 90 days?: No Positive Blood Alcohol level on Presentation? [PCS.BAL]: No Evidence of Increased Autonomic Activity (i.e. HR>120, tremor, sweating, agitation, nausea)?: No Result: 0
[2022-03-24 15:53] VITALS: BP 135/72; PULSE 60; RESP 18; TEMP 36.7; O2SAT 96
[2022-03-24] MEDS: Clindamycin 300 MG CAP 600 MG PO ×2 (15:59→21:00)
--- NOTE | 2022-03-24 16:06 | OCONE_ITS ---
Assessment and Plan Assessment and plan (1) Septic olecranon bursitis of left elbow: Status: Acute Assessment and plan: Ms. Sierra is a 76-year-old female who presented to the emergency room on 03/20/2022 injury to the left elbow two days prior to presentation. When patient had swelling over olecranon, redness of her forearm and discomfort in t he area she presented to the emergency room. While in the emergency room patient underwent aspiration olecranon bursa by Dr. Finnegan. Patient was admitted for IV antibiotics (clindamycin) well as for PUI for Covid-19 with symptoms of rhinorrhea and headache. Reviewed patient's ER note states [facility] was consulted - recommended monitoring since patient had already undergone aspiration. If she did not have improvement obtaining x-ray as well as ESR/CRP. Then follow-up with outpatient orthopedics. Reviewed her inpatient chart - CT scan of upper extremity 03/22/22 did not show signs of abscess as well as x-ray did not show acute bony abnormality or signs of osteomyelitis Aspiration of the left olecranon bursa was positive for rare growth of strep pyogenes (group A) at 72 hours; gram stain showed many WBCs, no bacteria seen Left elbow x-rays ordered and reviewed today negative for any significant olecranon bursitis or obvious subcutaneous fluid collection. No obvious joint effusion. Note by hospitalist Dr. Monroy on 03/24/2022 states - clinically better; switched to oral clindamycin; his physical exam states the following: LUE erythema is somewhat more pronounced after elevating the arm with stockinette/hanging from IV pole.? Swelling has +/- decreased.? olecranon bursa ecchymosis still present, preserved ROM at wrist, increased ROM of left elbow. Preserved sensation; radial pulse palpable WBC and CRP continue to improve (CRP at ER on 03/21/22 was 24.41 today was 10.25). WBC normalized. Commend continued elevation, gentle motion/exercises as tolerated, physical therapy as needed. Continue with antibiotics for septic olecranon bursitis and/or cellulitis - duration of antibiotic depends on symptoms and clinical findings. Recommend avoiding any pressure posterior elbow with padding and/or pillow at all times. Follow-up outpatient with primary care doctor versus orthopedics as needed Please reach out directly with any questions or concerns about this patient discussed with Dr. Monroy. . [facility] All Active Problems (Updated 03/21/22 @ 14:39 by Digna Vo MD) Discharge planning issues (Acute) DVT prophylaxis (Acute) Real time reverse transcriptase PCR positive for COVID-19 virus (Acute) Septic olecranon bursitis of left elbow (Acute) Olecranon bursitis of left elbow (Acute) Cellulitis of arm, left (Acute) Pneumonitis (Acute) Abnormal weight loss (Acute) Abdominal pain (Acute) MEDINA (dyspnea on exertion) (Acute) Medical History (Updated 03/21/22 @ 14:39 by Digna Vo MD) COVID-19 02/24/22 Elevated d-dimer evaluated for this by [facility] hem/onc in 04/2020 who recommended to not trend d- dimer in this patient Hypothyroidism (acquired) (05/03/18) Nonspecific interstitial pneumonitis Obesity (BMI 30.0-34.9) Sick sinus syndrome due to SA node dysfunction (02/03/18) dual chamber pacer 02/12 Spinal stenosis Uterine cancer s/p resection, radiation, in remission Surgical History (Updated 03/20/22 @ 18:38 by Digna Vo MD) H/O cervical spine surgery History of total right knee replacement S/p bilateral carpal tunnel release S/P hysterectomy with oophorectomy S/P placement of cardiac pacemaker S/P skin cancer resection LLE S/P tympanoplasty Status post replacement of both shoulder joints (05/03/18) Family History (Updated 03/20/22 @ 18:51 by Digna Vo MD) Mother Cancer intestinal carcinoid, lung carcinoid Father Cancer lung cancer Hypertension Sister Cancer aplastic anemia that had converted to a three letter combination (likely MDS) and then acute leukemia, of which she Social History (Updated 03/20/22 @ 18:39 by Digna Vo MD) Smoking/Tobacco Use Status: Former Tobacco Use Smoking risk assessment performed?: Yes Alcohol Intake: current Alcohol Intake frequency: a few times a month Alcohol type: other Drug use: Never Substance use type: does not use Details: occasionally uses CBD Do you feel safe at home: Yes Do you feel safe in your relationship?: Yes History History 2 Para 2 Hx # Term Pregnancies 2 Multiple births Hx # Pregnancies Ectopic pregnancies AB induced Hx Number of Living Children AB spontaneous Results Last Vital Signs Temp 98.1 F 03/24/22 15:53 Pulse 60 03/24/22 15:53 Resp 18 03/24/22 15:53 BP 135/72 03/24/22 15:53 Pulse Ox 96 03/24/22 15:53 Labs Result diagrams: 03/24/22 06:00 03/24/22 06:00 Labs: Laboratory Results - last 24 hr 03/20/22 03/23/22 03/24/22 05:19 16:00 06:00 WBC RBC Hgb Hct MCV MCH MCHC RDW Plt Count MPV Immature Gran % Neutrophils % Lymphocytes % Monocytes % Eosinophils % Basophils % Nucleated RBC % Absolute Neutrophils Absolute Lymphocytes Absolute Monocytes Absolute Eosinophils Absolute Basophils Sodium 140 Potassium 3.5 Chloride 107 Carbon Dioxide 26.2 Anion Gap 6.8 BUN 10 Creatinine 0.9 Estimated GFR/1.73 m2 >= 60.00 Glucose 99 Calcium 8.7 Total Bilirubin 0.5 AST 55 H ALT 57 Alkaline Phosphatase 142 H C-Reactive Protein 10.25 H Total Protein 6.0 L Albumin 2.3 L Urine Color Yellow Urine Clarity Clear Urine pH 6.0 Ur Specific [place] 1.025 Urine Protein Negative Urine Ketones Negative Urine Blood Negative Urine Nitrite Negative Urine Bilirubin Negative Urine Urobilinogen 0.2 Ur Leukocyte Esterase Negative Urine Glucose Negative A.phagocytophil DNA PCR Negative B. divergens/MO-1 PCR Negative Babesia duncani (PCR) Negative Babesia microti DNA PCR Negative Borrelia (PCR) Negative E.chaffeensis DNA (PCR) Negative E.ewingii/canis DNA PCR Negative E. muris-like DNA (PCR) Negative 03/24/22 06:00 WBC 6.39 RBC 3.10 L Hgb 9.6 L Hct 29.0 L MCV 93.5 MCH 31.0 MCHC 33.1 RDW 12.6 Plt Count 195 MPV 10.4 Immature Gran % 1.7 Neutrophils % 63.6 Lymphocytes % 18.0 Monocytes % 12.1 Eosinophils % 4.1 Basophils % 0.5 Nucleated RBC % 0.0 Absolute Neutrophils 4.07 Absolute Lymphocytes 1.15 L Absolute Monocytes 0.77 Absolute Eosinophils 0.26 Absolute Basophils 0.03 Sodium Potassium Chloride Carbon Dioxide Anion Gap BUN Creatinine Estimated GFR/1.73 m2 Glucose Calcium Total Bilirubin AST ALT Alkaline Phosphatase C-Reactive Protein Total Protein Albumin Urine Color Urine Clarity Urine pH Ur Specific [place] Urine Protein Urine Ketones Urine Blood Urine Nitrite Urine Bilirubin Urine Urobilinogen Ur Leukocyte Esterase Urine Glucose A.phagocytophil DNA PCR B. divergens/MO-1 PCR Babesia duncani (PCR) Babesia microti DNA PCR Borrelia (PCR) E.chaffeensis DNA (PCR) E.ewingii/canis DNA PCR E. muris-like DNA (PCR)
[2022-03-24 19:39] VITALS: BP 151/83; PULSE 60; RESP 18; TEMP 37.1; O2SAT 97
[2022-03-24] MEDS: Famotidine 20 MG TAB PO (21:00)
[2022-03-24 23:23] VITALS: BP 148/82; PULSE 61; RESP 18; TEMP 37.1; O2SAT 97
[2022-03-25 03:19] VITALS: BP 129/73; PULSE 59; RESP 18; TEMP 37.1; O2SAT 97
[2022-03-25] MEDS: Levothyroxine 50 MCG TAB PO (05:57)
[2022-03-25 06:56] LABS: Platelet Count 246 10^3/uL (130-400)
[2022-03-25 07:43] VITALS: BP 150/81; PULSE 60; RESP 17; TEMP 36; O2SAT 93
[2022-03-25] MEDS: Cholecalciferol (Vitamin D3) 1,000 UNIT TAB 2000 UNITS PO (07:50)
[2022-03-25] MEDS: Clindamycin 300 MG CAP 600 MG PO (07:53)
[2022-03-25] MEDS: Nystatin POWDER 60 GM JAR TP (07:53)
[2022-03-25] MEDS: Acetaminophen 325 MG TAB PO (09:15)
--- NOTE | 2022-03-25 09:24 | CMDISCH_ITS ---
- If Service Date Differs Date of service: 03/25/22 Time of Service: 09:24 LACE Index Scoring Tool - Questions: Length of Stay (in days): 4 - 6 Acuity (Admit via E.D.?): Yes E.D. Visits: 1 - Answers: Total Score: 8 Risk of Readmission: Low Risk Care Management Discharge Reason for Hospitalization: Olecranon bursitis of left elbow, Cellulitis of left arm Discharge Plan: Discharge home on oral ABX via private vehicle with family. Follow up with community providers and discharge plan of care as prescribed. No new [facility] services are indicated at this time. Patient/Family Education Needs: Review discharge instructions, medications, limitations and plan to follow up with community providers. Review as me three.
--- NOTE | 2022-03-25 09:56 | W.PM.DS.N ---
Date of service: 03/25/22 Time of Service: 10:05 DS: Diagnosis Discharge Diagnosis (1) Septic olecranon bursitis of left elbow: Status: Acute Discharge Plan Disposition Patient Disposition: HOME Condition: Improving Discharge Details Reason For Visit: Cellulitis and Septic Bursitis L Elbow Admit Date/Time: 03/20/22 08:44 Admit Provider: Digna Vo Attending Provider: Digna Vo Primary Care Provider: [facility] Hospital Course Hospital Course: Follow up with PCP office in 1 week. Home Meds and New Rx's Prescriptions: New clindamycin HCl 300 mg Capsule 600 mg PO TID Qty: 18 0RF Continued cholecalciferol (vitamin D3) [Vitamin D3] 1,000 UNIT capsule 2,000 unit PO DAILY 0RF levothyroxine [Synthroid] 50 mcg tablet 50 mcg PO DAILY Qty: 90 3RF albuterol sulfate 90 mcg/actuation HFA aerosol inhaler 2 puff IH QID PRN0RF Discharge Instructions Instructions: Cellulitis (GEN) Activity:: Activity as Tolerated Equipment/Supplies:: No Equipment Needed Diet:: Resume usual diet Discharge Orders Discharge Orders: Discharge Order (Routine); Ordered 03/25/22 Ordered By: Carlos Monroy DS: Summary Time Spent with Patient providing and/or coordinating discharge services: Greater than 30 minutes Status at Discharge Functional status at discharge: independent ambulation Overall status at discharge: patient is progressing back to baseline Mental Status: mental status grossly normal Speech and Movement: speech and movement normal Mood: congruent mood Affect: normal affect Exam Narrative Exam Narrative: General: Very pleasant female who is very conversant and pleasant. Non-toxic appearing. HEENT: EOMI, MMM Cardiovascular: RRR, no m/r/g Lungs: CTAB Gastrointestinal: soft, nontender, nondistended Extremities: LUE erythema is improved. Swelling of elbow to forearm is present. ROM of LUE at elbow improving. Psych Mental Status: mental status grossly normal Speech and Movement: speech and movement normal Mood: congruent mood Affect: normal affect DS: Data Vitals/I&O Vitals and I&O: Vital Signs Temperature 36.0 C L 03/25/22 07:43 Temperature Source Tympanic 03/25/22 07:43 Pulse 60 03/25/22 07:43 Pulse Rhythm Regular 03/25/22 07:59 Respiratory Rate 17 03/25/22 07:43 Respiratory Effort Non-Labored 03/25/22 07:59 Respiratory Depth Normal 03/25/22 07:59 Respiratory Pattern Normal 03/25/22 07:59 Blood Pressure 150/81 H 03/25/22 07:43 Blood Pressure Mean 58 03/20/22 09:40 Blood Pressure Position Supine 03/20/22 04:25 Pulse Oximetry 93 03/25/22 07:43 Oxygen Delivery Method Room Air 03/25/22 07:43 Oxygen Flow Rate 0 03/25/22 07:43 Pain Level 1 03/25/22 07:43 Comment 03/22/22 19:15 Intake & Output 03/24/22 03/24/22 03/25/22 11:59 23:59 11:59 Intake Total 310 / 310 180 / 180 Output Total 1225 / 1225 Balance -915 / -915 180 / 180 Intake: IV 70 / 70 Oral 240 / 240 180 / 180 Output: Urine 1225 / 1225 Other: Urine Color Pale Yellow Urine Appearance Clear Urine Odor Normal Comment pT stated she went to use the bathroom. Voiding Methods Toilet Toilet Toilet Data Completed and Pending Labs on day of discharge: Labs from last 24 hours 03/25/22 06:32 Plt Count 246 Preliminary micro results at discharge 03/21/22 10:25 Blood Culture - Preliminary Blood NO GROWTH 72 HOURS 03/21/22 10:15 Blood Culture - Preliminary Blood NO GROWTH 72 HOURS PFSH All Active Problems Discharge planning issues (Acute) DVT prophylaxis (Acute) Real time reverse transcriptase PCR positive for COVID-19 virus (Acute) Septic olecranon bursitis of left elbow (Acute) Olecranon bursitis of left elbow (Acute) Cellulitis of arm, left (Acute) Pneumonitis (Acute) Abnormal weight loss (Acute) Abdominal pain (Acute) MEDINA (dyspnea on exertion) (Acute) Medical History COVID-19 02/24/22 Elevated d-dimer evaluated for this by [facility] hem/onc in 04/2020 who recommended to not trend d-dimer in this patient Hypothyroidism (acquired) (05/03/18) Nonspecific interstitial pneumonitis Obesity (BMI 30.0-34.9) Sick sinus syndrome due to SA node dysfunction (02/03/18) dual chamber pacer 02/12 Spinal stenosis Uterine cancer s/p resection, radiation, in remission Surgical History H/O cervical spine surgery History of total right knee replacement S/p bilateral carpal tunnel release S/P hysterectomy with oophorectomy S/P placement of cardiac pacemaker S/P skin cancer resection LLE S/P tympanoplasty Status post replacement of both shoulder joints (05/03/18) Family History Mother Cancer intestinal carcinoid, lung carcinoid Father Cancer lung cancer Hypertension Sister Cancer aplastic anemia that had converted to a three letter combination (likely MDS) and then acute leukemia, of which she Social History Smoking/Tobacco Use Status: Former Tobacco Use Smoking risk assessment performed?: Yes Alcohol Intake: current Alcohol Intake frequency: a few times a month Alcohol type: other Drug use: Never Substance use type: does not use Details: occasionally uses CBD Do you feel safe at home: Yes Do you feel safe in your relationship?: Yes History History 2 Para 2 Hx # Term Pregnancies 2 Multiple births Hx # Pregnancies Ectopic pregnancies AB induced Hx Number of Living Children AB spontaneous
== END 2022-03-25 12:01 | disposition home or self-care (01) | DRG 558 ==
LOC: ER 09:00 → MS 10:00
PROVIDERS: Family Medicine; Student in an Organized Health Care Education/Training Program; Admitting Provider Internal Medicine; Emergency Provider Physician Assistant; PCP Family Medicine; Visit Provider Internal Medicine
DX: M71.122 Other infective bursitis, left elbow (principal); L03.114 Cellulitis of left upper limb; E03.9 Hypothyroidism, unspecified; E66.9 Obesity, unspecified; Z68.31 Body mass index [BMI] 31.0-31.9, adult; B95.0 Streptococcus, group A, as the cause of diseases classified elsewhere; Z87.891 Personal history of nicotine dependence; Z96.612 Presence of left artificial shoulder joint; I49.5 Sick sinus syndrome; Z95.0 Presence of cardiac pacemaker; Z96.611 Presence of right artificial shoulder joint; Z96.651 Presence of right artificial knee joint; M48.00 Spinal stenosis, site unspecified; Z86.16 Personal history of COVID-19; W22.8XXA Striking against or struck by other objects, initial encounter; Z85.42 Personal history of malignant neoplasm of other parts of uterus; E87.6 Hypokalemia; R79.1 Abnormal coagulation profile
CPT/HCPCS: 20605; 36410; 36415; 80048; 80053; 84145; 85652; 87040; 87077; 87493; 87635; 87798; 96361; 96365; 96366; 96367; 97110; 97161; 99223; 99285; J1650; 73080; 73201; 80202; 81003; 83605; 83735; 85025; 85049; 85379; 86140; 86618; 87070; 87205; 89051; 89060; 99232; 99233; 99239; J0131; J3490

== ENCOUNTER → 2022-05-03 08:54 | Outpatient (BNVA) | payer MEDICARE, SELFPAY | PROVIDERS: PCP Family Medicine; Referring Provider Family Medicine; Visit Provider Physician Assistant | DX: L03.114 Cellulitis of left upper limb (principal); M71.122 Other infective bursitis, left elbow | CPT/HCPCS: 99214 ==

== ENCOUNTER 2022-07-03 16:50 | Outpatient (REF) | payer MEDICARE, SELFPAY | END 2022-07-03 16:51 | disposition home or self-care (01) | LOC: LBN 16:50 | PROVIDERS: PCP Family Medicine; Visit Provider Physician Assistant Medical | DX: R35.0 Frequency of micturition (principal) | CPT/HCPCS: 87077; 87086; 87186 ==

== ENCOUNTER 2022-12-02 03:01 | Outpatient (CLI) | payer MEDICARE, SELFPAY ==
[2022-12-02 12:14] LABS: Abs Immature Grans 0.02 10^3/uL (0.0-0.06); Absolute Basophil Count 0.05 10^3/uL (0.0-0.2); Absolute Eosinophil Count 0.28 10^3/uL (0.0-0.7); Absolute Lymphocyte Count 2.04 10^3/uL (1.2-3.4); Absolute Monocyte Count 0.93 10^3/uL (0.1-0.8); Absolute Neutrophil Count 5.98 10^3/uL (1.2-6.7); Basophils % 0.5; HCT 43.1 % (36.0-46.0); HGB 13.8 g/dL (11.2-15.7); Immature Grans % 0.2; Lymphocytes % 21.9; MCH 30.8 pg (27.0-33.0); MCV 96 fL (80-95); Neutrophils % 64.4; Platelet Count 177 10^3/uL (130-400); RBC 4.48 10^6/uL (3.93-5.22); RDW 12.4 % (11.7-14.6); RDW-SD 44.3 fL
[2022-12-02 12:32] LABS: ALT 19 U/L (14-59); AST 20 U/L (15-37); Albumin 3.7 g/dL (3.4-5.0); Alkaline Phosphatase 76 U/L (46-116); Anion Gap 7.5 mmol/L (3-11); BUN 23 mg/dL (7-18); Bilirubin, Total 1.1 mg/dL (0.2-1.0); CO2 28.5 mmol/L (21.0-32.0); CREATININE 1.2 mg/dL (0.55-1.02); Calcium 9.5 mg/dL (8.5-10.1); Calculated LDL 76 mg/dL (<100); Chloride 104 mmol/L (98-107); Cholesterol 144 mg/dL (<200); Estimated GFR 46.05 (mL/min/1.73m2); Glucose 108 mg/dL (74-106); HDL Cholesterol 58 mg/dL (40-60); Potassium 4.1 mmol/L (3.5-5.1); Sodium 140 mmol/L (136-145); TSH (W/Ref FT4) 2.88 uIU/mL (0.36-3.74); Total Protein 7.6 g/dL (6.4-8.2); Triglyceride 52 mg/dL (<150)
== END 2022-12-02 03:02 | disposition home or self-care (01) ==
LOC: LOS 03:01
PROVIDERS: PCP Family Medicine; Visit Provider Family Medicine
DX: Z00.00 Encounter for general adult medical examination without abnormal findings (principal)
CPT/HCPCS: 36415; 80053; 80061; 84443; 85025

== ENCOUNTER 2022-12-13 15:59 | Outpatient (CLI) | payer MEDICARE, SELFPAY ==
--- NOTE | 2022-12-13 13:30 | DI.RAD_ITS ---
Exam(s) XR CHEST 2V PA LATERAL EXAM: XR CHEST 2V PA LATERAL CLINICAL HISTORY: cough, wheezing, r/o pneumonia, R05.9 TECHNIQUE: 2D digital imaging was performed of the chest. Two images were obtained. PA and lateral views were obtained. COMPARISON: CR XR CHEST 2V PA LATERAL from 12/20/2019 FINDINGS: MEDIASTINUM: Normal. HEART: Normal. Dual lead pacing wires are stable in position. PULMONARY VASCULATURE: Normal. LUNGS: There is chronic appearing interstitial disease present. No focal consolidating infiltrates a re seen. PLEURAL SPACE: No pleural effusion or pneumothorax. BONE:Within normal limits for the patient's age. Patient has bilateral shoulder replacements. OTHER FINDINGS:Normal. IMPRESSION: No focal consolidating infiltrates are seen. Chronic appearing changes in the lungs. DATA REPOSITORY: RADIATION DOSE DELIVERED:
== END 2022-12-13 16:19 ==
LOC: DI 16:01
PROVIDERS: PCP Family Medicine; Visit Provider Physician Assistant
DX: R05.9 Cough, unspecified (principal); R06.2 Wheezing
CPT/HCPCS: 71046

== ENCOUNTER 2023-01-03 07:53 | Outpatient (CLI) | payer MEDICARE, SELFPAY ==
--- NOTE | 2023-01-03 07:45 | DI.RAD_ITS ---
Exam(s) XR PAIN CLINIC LUMBAR SP 2V EXAM: XR PAIN CLINIC LUMBAR SP 2V CLINICAL HISTORY: Dx: Lumbar Spondylosis TECHNIQUE: 2D and realtime digital imaging was performed. CONTRAST MATERIAL: Refer to procedure report. COMPARISON: No exams were available for comparison FINDINGS: Fluoroscopy was provided for Dr. Modi during the performance of a lumbar medial branch block. Please refer to the procedure report for complete details. Ka,r=6.76 mGy IMPRESSION:
[2023-01-03 08:03] VITALS: BP 135/78; PULSE 61; RESP 20; TEMP 36.7; O2SAT 95
[2023-01-03] MEDS: Omnipaque 240 MG/ML 50 ML BTL IJ (08:44)
[2023-01-03] MEDS: Bupivacaine 0.5% Pres-Free 10 ML VIAL IJ (08:45)
--- NOTE | 2023-01-03 08:46 | PDOC.PAIN ---
Date of service: 01/03/23 Time of Service: 08:46 Pain Clinic Procedure Note Procedure Note Procedure Note: Lumbar/Sacral Medial Branch Blocks Ana Sierra has been referred to the [facility] Management [facility] for lumbar/sacral medial branch blocks. Pre-operative diagnosis: lumbar spondylosis Post-operative diagnosis: same as above COMMENTS: patient has chronic axial back pain with facet mediated pain. On lumbar image, patient has auto-fusion of L5-S1 level. Plan to target L3-4, L4-5 facet bilaterally as first step in diagnostic testing Patient was interviewed and the medical record reviewed. There were no medical, pharmacologic, radiographic or other structural contraindications to attempting fluoroscopically guided local anesthetic lumbar/sacral medial branch blocks. Risks and expected side effects as well as potential benefit of the procedure were reviewed and voiced concerns addressed. The printed consent form was signed and witnessed. Standard time-out procedure was performed. Patient was placed in the prone position on the fluoroscopy table and automated blood pressure cuff and pulse oximeter applied. The skin entry points for approaching the anatomic target points of the segmental medial branches of bilateral L2, L3, L4 were identified with anfluoroscopy and marked. Following thorough Chlorhexadine preparation of the skin and draping and 1% lidocaine infiltration of the skin entry points and subcutaneous tissues, a 22 gauge spinal needle was placed under fluoroscopic guidance down on to the target point for each respective segmental medial branch.Position was confirmed in A/P, oblique and lateral views with 0.25ml of omnipaque 240. Coult be this method 0.5ml 0.5% Bupivacaine was injected. Vital signs were stable throughout the procedure and were as recorded in the docflowsheet by the nursing staff. Follow up plans and appointments were discussed and was instructed to keep careful note of how the usual pain was modified by these injections. Specifically was asked to keep a pain diary for the next 24 hours using a numeric pain scale of 0-10 and report these results at the follow-up visit. Post procedure instruction was given as documented in the nursing documentation and having met discharge criteria. Patient was discharged from the [facility] Management [facility]. Based on the medial branches blocked today, if the patient has adequate relief and we are able to proceed to radiofrequency ablation, the treatment should result in the denervation of the bilateral L3/4, L4/5 facets. We would expect to denervate a total of 4 facets during the radiofrequency ablation. COMMENTS: Pre-procedure pain level is 9/10, post procedure pain level reported as 1/10 I performed the entire procedure. Fortino Modi MD Pain Management CC: Reinaldo Gamez MD
[2023-01-03 08:58] VITALS: BP 135/85; PULSE 60; RESP 18; O2SAT 96
== END 2023-01-03 07:54 | disposition home or self-care (01) ==
LOC: PC 07:53
PROVIDERS: PCP Family Medicine; Visit Provider Internal Medicine
DX: M47.816 Spondylosis without myelopathy or radiculopathy, lumbar region (principal); M54.50 Low back pain, unspecified
CPT/HCPCS: 64493; 64494; 72100; Q9967

== ENCOUNTER 2023-01-25 12:31 | Outpatient (CLI) | payer MEDICARE, SELFPAY ==
--- NOTE | 2023-01-25 07:45 | DI.RAD_ITS ---
Exam(s) XR PAIN CLINIC LUMBAR SP 2V EXAM: XR PAIN CLINIC LUMBAR SP 2V CLINICAL HISTORY: Dx: Lumbar Spondylosis TECHNIQUE: 2D and realtime digital imaging was performed. Radiologist not present. CONTRAST MATERIAL: None. COMPARISON: No exams were available for comparison FINDINGS: Fluoroscopy was provided for pain management therapy. Please refer to procedure report or details. Radiation Exposure Index: Ka,r=28.51 mGy IMPRESSION: As above. RADIATION DOSE DELIVERED:
[2023-01-25 12:40] VITALS: BP 130/80; PULSE 68; RESP 20; TEMP 36.8; O2SAT 98
[2023-01-25] MEDS: Omnipaque 240 MG/ML 50 ML BTL IJ (13:32)
[2023-01-25] MEDS: Lidocaine 2% Pres-Free 5 ML VIAL IJ (13:32)
[2023-01-25 13:33] VITALS: BP 134/74; PULSE 60; RESP 19; O2SAT 97
--- NOTE | 2023-02-03 07:55 | PDOC.PAIN_ITS ---
Date of service: 01/25/23 Time of Service: 12:00 Pain Clinic Procedure Note Procedure Note Procedure Note: Lumbar/Sacral Medial Branch Blocks Ana Sierra has been referred to the [facility] for lumbar/sacral medial branch blocks. COMMENTS: She was previously evaluated and continues to have pain to the low back bilaterally. She had his first LMBB at bilateral L2-L4 by Dr. Modi on 01/03/2023 and did exceedingly well. She is autofused at L5-S1. Pre-procedure pain VAS was 6/10 Dx: Lumbosacral spondylosis without myelopathy Patient was interviewed and the medical record reviewed. There were no medical, pharmacologic, radiographic or other structural contraindications to attempting fluoroscopically guided local anesthetic lumbar/sacral medial branch blocks. Risks and expected side effects as well as potential benefit of the procedure were reviewed and voiced concerns addressed. The printed consent form was signed and witnessed. Standard time-out procedure was performed. Patient was placed in the prone position on the fluoroscopy table and automated blood pressure cuff and pulse oximeter applied. The skin entry points for approaching the anatomic target points of the segmental medial branches of Bilateral L2-L4 were identified with anfluoroscopy and marked. Following thorough Chlorhexadine preparation of the skin and draping and 1% lidocaine infiltration of the skin entry points and subcutaneous tissues, a 22 gauge spinal needle was placed under fluoroscopic guidance down on to the target point for each respective segmental medial branch.Position was confirmed in A/P, oblique and lateral views with 0.25ml of omnipaque 240. At this point I injected 0.5cc of 2% Lidocaine. Vital signs were stable throughout the procedure and were as recorded in the docflowsheet by the nursing staff. Follow up plans and appointments were discussed and was instructed to keep careful note of how the usual pain was modified by these injections. Specifically was asked to keep a pain diary for the next 4 hours using a numeric pain scale of 0-10 and report these results at the follow-up visit. Post procedure instruction was given as documented in the nursing documentation and having met discharge criteria. Patient was discharged from the Pain Management Center. Based on the medial branches blocked today, if the patient has adequate relief and we are able to proceed to radiofrequency ablation, the treatment should result in the denervation of the bilateral L3-L4 and L4-L5 FACET JOINTS. We would expect to denervate a total of 4 facets during the radiofrequency ablation. COMMENTS: He did well with this procedure. Post-procedure pain VAS was 1/10. Rosendo Odell DO, MPH [facility]Pain Management [facility] CC: Reinaldo Gamez MD
== END 2023-01-25 12:32 | disposition home or self-care (01) ==
LOC: PC 12:31
PROVIDERS: PCP Family Medicine; Visit Provider Preventive Medicine Occupational Medicine
DX: M47.817 Spondylosis without myelopathy or radiculopathy, lumbosacral region (principal); M54.50 Low back pain, unspecified
CPT/HCPCS: 64493; 64494; 72100; Q9967

== ENCOUNTER → 2023-04-13 07:33 | Outpatient (BNVA) | payer MEDICARE, SELFPAY | PROVIDERS: PCP Family Medicine; Referring Provider Family Medicine; Visit Provider Physician Assistant | DX: Z45.010 Encounter for checking and testing of cardiac pacemaker pulse generator [battery] (principal) | CPT/HCPCS: 93286 ==

== ENCOUNTER 2023-04-13 08:16 | Outpatient (CLI) | payer MEDICARE, SELFPAY ==
--- NOTE | 2023-04-13 06:00 | DI.RAD_ITS ---
Exam(s) XR PAIN CLINIC LUMBAR SP 2V EXAM: XR PAIN CLINIC LUMBAR SP 2V CLINICAL HISTORY: Dx: Lumbar Spondylosis. TECHNIQUE: Fluoroscopy was provided for the referring physician for guidance with performing pain cl inic injection procedure. COMPARISON: No exams were available for comparison FINDINGS: Please see procedure note for details. Fluoro time: 90.8 seconds RADIATION DOSE DELIVERED: Kar=38.15 mGy
[2023-04-13 08:38] VITALS: BP 130/76; PULSE 59; RESP 20; TEMP 36.3; O2SAT 99
[2023-04-13] MEDS: fentaNYL 100 MCG/2 ML VIAL IVP ×2 (09:26→09:58)
[2023-04-13] MEDS: Midazolam 2 MG/2 ML VIAL IVP (09:26)
[2023-04-13] MEDS: Lactated Ringers 500 ML 80 ML IV (09:28)
[2023-04-13 10:04] VITALS: BP 136/78; PULSE 60; RESP 16; O2SAT 98
[2023-04-13] MEDS: methylPREDNISolone ACETATE 40 MG/ML VIAL IJ (10:33)
[2023-04-13] MEDS: Lidocaine 2% Pres-Free 5 ML VIAL IJ (10:33)
[2023-04-13] MEDS: Bupivacaine 0.5% Pres-Free 10 ML VIAL IJ (10:33)
--- NOTE | 2023-04-13 10:35 | PDOC.PAIN ---
Date of service: 04/13/23 Time of Service: 10:44 Pain Managment Procedure Note Procedure Note Procedure Note: Bilateral Lumbar Radiofrequency with [employer] Machine PROCEDURE NOTE Date of Service: April 13, 2023 Patient: Ana Sierra Provider: Rosendo Odell DO, MPH Pre Operative Diagnosis: Lumbosacral Spondylosis without Myelopathy Post Operative Diagnosis: Same Pre procedure pain; VAS= 6/10 PROCEDURE: Radiofrequency Ablation of medial branches - Bilateral L2 L3 L4. Ana Sierra was brought into the fluoroscopy suite and positioned into the prone position on the fluoroscopy table and allowed to adjust to a position of comfort. A grounding pad was placed on the left abdomen. The lumbar region was widely prepped with a chloraprep solution, allowed to air dry and draped in standard sterile surgical fashion. Local anesthesia was provided by 4 mL of 2% Lidocaine delivered with a 25g needle. A 17g 100 mm radiofrequency introducer needle was placed to the planned anatomic targets guided with intermittent fluoroscopy with a perpendicular approach to terminally place at the junction of the superior articular process and the transverse process of the bilateral L2 L3 L4. The stylets were removed and radiofrequency probes with a 4mm active tip were then inserted. Needle tip position of the probes was verified in the AP, oblique, and lateral views. At each site, the medial branch nerve was stimulated at 2 Hz to a maximum 1-2 volts determined to finalize safe needle and electrode placement. The patient was awake and responsive during this portion of the procedure. Each target was anesthetized with 1-2 mL of 2 % Lidocaine for anesthesia for lesioning and then each target was lesioned at 80 degrees Celsius for 2 minutes and 30 seconds. Tissue impedences were noted to be between 250 and 500 Ohms. Electrodes and needles were then removed and bandages placed over the needle placement sites, the patient then returned to the supine position on a stretcher and transported to the recovery room without hemodynamic, neurologic, or allergic reactions. Fluoroscopic images were printed for hard copy recording and digitally archived. POST PROCEDURE EVALUATION: IMPRESSION: 1. Summary of procedure. Medication given is documented in the MAR. 2. The patient will be contacted in 1-3 weeks 3. Estimated Blood Loss: <5 mls 4. Fluoroscopy time: Documented in the EMR. Follow up plans and appointments were discussed with the Ana . Post procedure instruction was given as documented in nursing documentation and having met discharge criteria, Ana was discharged from the Pain Management Center. COMMENTS: No apparent complications. Post-procedure pain: VAS= 0/10. F/U with our office as needed. This procedure can be repeated if she receives at least 50% pain relief and/or functional improvement for at least 6 months. I personally performed this entire procedure. Rosendo Odell DO, MPH [facility]-Pain Management [facility]
== END 2023-04-13 08:17 | disposition home or self-care (01) ==
PROVIDERS: PCP Family Medicine; Visit Provider Preventive Medicine Occupational Medicine
DX: M47.817 Spondylosis without myelopathy or radiculopathy, lumbosacral region (principal); M54.50 Low back pain, unspecified
CPT/HCPCS: 64635; 64636; 72100; J1030; J2250; J3010

== ENCOUNTER 2023-04-22 00:24 | Outpatient (CLI) | payer MEDICARE, SELFPAY ==
--- NOTE | 2023-04-22 08:15 | DI.CT_ITS ---
Exam(s) CT CHEST WO EXAM: CT CHEST WO CLINICAL HISTORY: mosaic attenutation/GGO's - assess with inspIR FILMS,f/u abnl ct,r93.89. TECHNIQUE: Multi planar reconstructions were performed. CONTRAST MATERIAL: None COMPARISON: CR XR CHEST 2V PA LATERAL from 12/13/2022 FINDINGS: CHEST: LUNGS: There are no confluent infiltrates nor pleural effusions and there are no ominous pulmonary no dules. Small benign calcified granuloma is seen in the right lower lobe at the pleural surface, post eriorly. There are mild increased interstitial markings peripherally in both lungs indicating some m ild interstitial disease. Probably element of fibrosis. No findings in the trachea and mainstem bronchi. There is no bronchiectasis. MEDIASTINUM: No hilar nor mediastinal adenopathy. No obvious axillary adenopathy. CARDIAC: Heart size is normal. There is no pericardial effusion.Pacemaker wires noted. Diameter of the ascending thoracic aorta is enlarged, measuring 4.3 cm. VISUALIZED UPPER ABDOMEN:No adrenal masses. No splenomegaly. OSSEOUS: No significant osseous lesions.Bilateral shoulder prostheses. No significant osseous lesion s.. IMPRESSION: 1. Mild bilateral interstitial lung disease. No ominous pulmonary nodules, infiltrates, or pleural e ffusions. No obvious intrathoracic adenopathy. 2. Cardiac pacemaker. 3. Enlarged diameter of the ascending thoracic aorta which measures 4.3 cm. RADIATION DOSE DELIVERED: 502.3mGy.cm Total DLP DATA REPOSITORY: All CT scans at this facility are submitted to the National Radiology Data Registry (NRDR) Dose Index Registry (DIR) with the [employer] (A[employer]). RADIATION OPTIMIZATION: All CT scans at this facility use at least one of these dose optimization te chniques: automated exposure control; mA and/or kV adjustment per patient size (includes targeted exa ms where dose is matched to clinical indication); or iterative reconstruction.
== END 2023-04-22 00:44 ==
LOC: DI 00:25
PROVIDERS: PCP Family Medicine; Visit Provider Student in an Organized Health Care Education/Training Program
DX: Z12.2 Encounter for screening for malignant neoplasm of respiratory organs; Z95.0 Presence of cardiac pacemaker; J84.9 Interstitial pulmonary disease, unspecified; I77.810 Thoracic aortic ectasia
CPT/HCPCS: 71250

== ENCOUNTER 2023-05-02 03:40 | Outpatient (CLI) | payer MEDICARE, SELFPAY ==
[2023-05-02 22:17] LABS: Rheumatoid Factor <8.6 IU/mL (<12.0)
[2023-05-03 10:20] LABS: Cyclic Citrullinated Peptide <2.5 U/mL (<5.0)
[2023-05-03 13:00] LABS: ANA Interpretation Positive (Negative); ANA Titer Pattern 1:80 Homogeneous
[2023-05-03 13:23] LABS: dsDNA Ab, IgG 15.5 IU/mL (<30.0)
[2023-05-05 10:38] LABS: Alter tenuis/alternata IgG 7.2 mcg/mL (<12.0); Aspergillus fumigatus IgG 39.4 mcg/mL (<46.0); Aureobasidium pullulans IgG 7.2 mcg/mL (<18.0); Laceyella sacchari IgG 4.3 mcg/mL (<25.0); Micropolyspora faeni IgG 2.6 mcg/mL (<5.0); Penicillium Chrysogenum IgG 50.7 mcg/mL (<22.0); Phoma betae IgG 8.4 mcg/mL (<8.0)
== END 2023-05-02 03:41 | disposition home or self-care (01) ==
LOC: LBO 03:40
PROVIDERS: PCP Family Medicine; Visit Provider Student in an Organized Health Care Education/Training Program
DX: J84.9 Interstitial pulmonary disease, unspecified (principal); Z01.82 Encounter for allergy testing
CPT/HCPCS: 36415; 86001; 86200; 86038; 86225; 86431

== ENCOUNTER 2023-05-02 03:44 | Outpatient (CLI) | payer MEDICARE, SELFPAY ==
[2023-05-02] MEDS: Albuterol HFA 18 GM 200 PUFF INH IH (12:05)
[2023-05-02] MEDS: Methacholine 100 MG VIAL IH (12:05)
[2023-05-02] MEDS: Inhaler, Assist Device 1 EACH MC (12:06)
--- NOTE | 2023-05-03 07:20 | W.PFT ---
Date of service: 05/02/23 Time of Service: 10:04 Pulmonary Function Test Result Indications: Asthma Interpretation Spirometry: There is no airflow limitation. There was a 21% decrease in FEV1% with administration of 8 mg/mL methacholine Lung Volumes: Normal lung volumes Diffusion Capacity: Normal diffusion Airway Pressure: Normal airways resistance Impression Normal baseline pulmonary function. Positive methacholine challenge. Clinical Correlation therefore is recommended.
== END 2023-05-02 03:45 | disposition home or self-care (01) ==
LOC: RT 03:44
PROVIDERS: PCP Family Medicine; Visit Provider Student in an Organized Health Care Education/Training Program
DX: J45.909 Unspecified asthma, uncomplicated (principal)
CPT/HCPCS: 94060; 94070; 94726; 94729; 94010; J7674

== ENCOUNTER 2023-06-21 13:27 | Outpatient (REF) | payer MEDICARE, SELFPAY ==
[2023-06-21 22:10] LABS: Bilirubin Negative (Negative); Blood Negative (Negative); Clarity Sl Cloudy (Clear); Glucose Negative (Negative); Ketones Negative (Negative); Leukocyte Esterase Small (Negative); Nitrite Negative (Negative); Specific Gravity 1.015 (1.005-1.025); Urobilinogen 0.2 mg/dL (Up to 0.2); pH 5.5 (5-8)
[2023-06-21 22:42] LABS: Bacteria Moderate HPF (Negative); C & S Indicated? No/Sq. Contamination; Crystals Negative HPF (Negative); Epithelial Cells Moderate HPF (Negative); Mucus Negative (Negative); RBC 0-2 HPF (0-2); WBC 20-50 HPF (0-5)
== END 2023-06-21 13:28 | disposition home or self-care (01) ==
LOC: LBN 13:27
PROVIDERS: PCP Family Medicine; Visit Provider Physician Assistant
DX: R39.89 Other symptoms and signs involving the genitourinary system (principal)
CPT/HCPCS: 81003; 81015

== ENCOUNTER 2023-07-06 11:33 | Outpatient (REF) | payer MEDICARE, SELFPAY ==
[2023-07-08 09:17] LABS: IgE 87 IU/mL (<158)
== END 2023-07-06 11:34 | disposition home or self-care (01) ==
LOC: LBN 11:33
PROVIDERS: PCP Family Medicine; Visit Provider Physician Assistant Surgical
DX: J84.9 Interstitial pulmonary disease, unspecified (principal); R93.89 Abnormal findings on diagnostic imaging of other specified body structures
CPT/HCPCS: 82785

== ENCOUNTER 2023-09-19 10:46 | Outpatient (CLI) | payer MEDICARE, SELFPAY ==
--- NOTE | 2023-09-19 13:45 | DI.RAD_ITS ---
Exam(s) XR KNEE LT 3V AP,LAT,BRYAN EXAM: XR KNEE LT 3V AP,LAT,BRYAN CLINICAL HISTORY: pain. TECHNIQUE: 2D digital imaging was performed. Three views. COMPARISON: No exams were available for comparison FINDINGS: BONES: No acute fracture is present. No bony destructive lesion is seen. Enthesophyte at quadriceps insertion on patella. JOINTS: Mild medial femoral tibial joint space narrowing. Chondrocalcinosis. Mild periarticular spu rring. No joint effusion is seen. SOFT TISSUE: Normal. IMPRESSION: Mild degenerative changes and chondrocalcinosis. DATA REPOSITORY: RADIATION DOSE DELIVERED:
== END 2023-09-20 10:46 | disposition home or self-care (01) ==
LOC: DIORS 10-17 13:23
PROVIDERS: PCP Family Medicine; Referring Provider Family Medicine
DX: S83.242A Other tear of medial meniscus, current injury, left knee, initial encounter (principal); X58.XXXA Exposure to other specified factors, initial encounter
CPT/HCPCS: 73562; 99213

== ENCOUNTER → 2023-10-04 11:00 | Outpatient (BNVA) | payer MEDICARE, SELFPAY | PROVIDERS: PCP Family Medicine; Referring Provider Family Medicine; Visit Provider Student in an Organized Health Care Education/Training Program | DX: J45.909 Unspecified asthma, uncomplicated (principal); Z79.51 Long term (current) use of inhaled steroids; Z79.899 Other long term (current) drug therapy; J84.9 Interstitial pulmonary disease, unspecified | CPT/HCPCS: 99214 ==

== ENCOUNTER 2023-10-12 08:48 | Day surgery (SDC) | payer MEDICARE, SELFPAY ==
[2023-10-12] VITALS (10 sets, daily range): BP systolic 96–157; BP diastolic 52–84; PULSE 60–95; RESP 11–20; TEMP 36.3–36.5; O2SAT 95–100; BMI 32.6
[2023-10-12] MEDS: Lactated Ringers 1,000 ML 80 ML IV (09:15)
[2023-10-12] MEDS: Acetaminophen 500 MG TAB 1000 MG PO (09:25)
[2023-10-12] MEDS: Celecoxib 200 MG CAP 400 MG PO (09:26)
--- NOTE | 2023-10-12 09:46 | W.PM.DSUDISC ---
Date of service: 10/12/23 Time of Service: 09:47 Discharge Plan Disposition Patient Disposition: Home Condition: Good Discharge Details Reason For Visit: L Knee Arthroscopy Attending Provider: Juanjo Wan Primary Care Provider: Reinaldo Gamez Home Meds and New Rx's Prescriptions: New acetaminophen 500 mg tablet 1,000 mg PO TID Qty: 90 0RF hydrocodone-acetaminophen 5-325 mg tablet 1 tab PO Q6H PRN (Reason: pain) Qty: 10 0RF ibuprofen 600 mg tablet 600 mg PO TID PRN (Reason: pain) Qty: 90 0RF Continued levothyroxine [Synthroid] 50 mcg tablet 50 mcg PO DAILY Qty: 90 3RF epinephrine [EpiPen] 0.3 mg/0.3 mL auto-injector 0.3 mg IM ONCE PRN (Reason: anaphylaxis) Qty: 2 0RF CBD candy See Rx Instructions .ROUTE DIRECTED Rx Instructions: as directed; cholecalciferol (vitamin D3) [Vitamin D3] 1,000 UNIT capsule 2,000 unit PO DAILY fluticasone propion-salmeterol [Advair Diskus] 250-50 mcg/dose blister with device 1 inh inhalation BID Qty: 60 8RF albuterol sulfate 90 mcg/actuation HFA aerosol inhaler 2 puff IH QID PRN (Reason: SOB) Qty: 6.7 2RF Discharge Instructions Stand Alone Forms: [place] Knee Arthroscopy Referrals: Juanjo Wan MD [ [facility] STAFF PHYSICIAN] - Equipment/Supplies: Partial Weight Bearing Crutches Activity:: Activity as Tolerated Remove Dressings/Wound Care:: 72 hours Shower/Bathe:: 72 hours Diet:: As Tolerated Discharge Orders Discharge Orders: Discharge Order (Routine); Ordered 10/12/23 Ordered By: Cruz Smallwood DS: Diagnosis Discharge Diagnosis (1) Tear of medial meniscus of left knee: Status: Acute
--- NOTE | 2023-10-12 09:49 | W.ANESPRE ---
General Info Date of Service Date Performed: 10/12/23 Height: 5 ft 5.5 in Weight: 90.3 kg Body Mass Index (BMI): 32.6 Surgical Procedure: Operation Date: 10/12/23 14:55 Proposed Procedure Side Surgeon p Knee Arthroscopy, Partial Medial Menisectomy Left Juanjo Wan MD Meds Allergies and Home Medications Allergies Allergy/AdvReac Type Severity Reaction Status Date / Time umeclidinium Allergy Intermediate rash Verified 10/12/23 09:06 [From Anoro Ellipta] vilanterol Allergy Intermediate rash Verified 10/12/23 09:06 [From Anoro Ellipta] dimethicone Allergy Mild Itching Verified 10/12/23 09:06 [From Cerave Baby Moisturizing] hydrochlorothiazide Allergy Mild Itching Verified 10/11/23 10:40 nitrofurantoin Allergy Mild Itching Verified 10/12/23 09:06 [From Macrobid] nitrofurantoin Allergy Mild Itching Verified 10/12/23 09:06 macrocrystalline [From Macrobid] Penicillins Allergy Mild Itching Verified 10/12/23 09:06 pomegranate Allergy Mild Itching Verified 10/12/23 09:06 bees Allergy Severe Anaphylaxis Uncoded 10/12/23 09:06 Home Medication Medication Instructions Recorded cholecalciferol (vitamin D3) 25 2,000 unit PO DAILY 12/03/15 mcg (1,000 unit) capsule (Vitamin D3) epinephrine 0.3 mg/0.3 mL 0.3 mg (0.3 mL) IM ONCE PRN 12/09/22 injection, auto-injector (EpiPen) anaphylaxis #2 ea levothyroxine 50 mcg tablet 50 mcg PO DAILY #90 tabs 12/09/22 (Synthroid) CBD candy See Rx Instructions .Route 04/14/23 DIRECTED fluticasone 250 mcg-salmeterol 50 1 inh inhalation BID #60 ea 06/23/23 mcg/dose blistr powdr for inhalation (Advair Diskus) albuterol sulfate 90 mcg/actuation 2 puff inhalation QID PRN SOB #6.7 07/21/23 aerosol inhaler grams acetaminophen 500 mg tablet 1,000 mg (2 x 500 mg) PO TID #90 10/12/23 tabs hydrocodone 5 mg-acetaminophen 325 1 tab PO Q6H PRN pain #10 tabs 10/12/23 mg tablet ibuprofen 600 mg tablet 600 mg PO TID PRN pain #90 tabs 10/12/23 Current Visit Medications: Current Medications Generic Name Dose Route Start Last Admin Trade Name Danisq PRN Reason Stop Dose Admin Acetaminophen 1,000 mg 10/12/23 06:00 10/12/23 09:25 Acetaminophen 500 Mg Tab PO 11/11/23 05:59 1,000 mg PREOP FE Administration Acetaminophen 650 mg 10/12/23 09:25 Acetaminophen 325 Mg Tab PO 11/11/23 09:24 Q4H PRN PRN Hydrocodone Bitart/Acetaminophen 0 tab 10/12/23 09:25 Hydrocodone 5/Acetaminophen 325 Tab PO 11/11/23 09:24 Q3H PRN PRN Pain Celecoxib 400 mg 10/12/23 06:00 10/12/23 09:26 Celecoxib 200 Mg Cap PO 11/11/23 05:59 400 mg PREOP FE Administration Ringer's Solution 1,000 mls @ 80 mls/hr 10/12/23 06:00 IV 10/12/23 23:59 INFUSION FE Cefazolin Sodium/Dextrose 2 gm in 50 mls @ 100 mls/hr 10/12/23 06:00 Ancef Duplex IVPB 10/12/23 23:59 PREOP FE IV Miscellaneous Supplies 1 each 10/12/23 06:00 Iv Access IV 10/12/23 23:59 DIRECTED FE Sodium Chloride 0 ml 10/12/23 06:00 Normal Saline Flush 10 Ml Syr IV 10/12/23 23:59 PRN PRN Sodium Chloride 0 ml 10/12/23 06:00 Normal Saline 10 Ml Vial IJ 10/12/23 23:59 DIRECTED PRN Sterile Water 0 ml 10/12/23 06:00 Water,Injection,Sterile 10 Ml Vial IJ 10/12/23 23:59 DIRECTED PRN PFSH Active Problems Active Problems: Problem Status Onset Code Tear of medial meniscus of left knee S83.242A ILD (interstitial lung disease) J84.[address] R93.89 Asthma J45.909 Lumbar spondylosis M47.816 Low back pain M54.50 Pacemaker Z95.0 Low back pain M54.50 Spinal stenosis M48.00 Real time reverse transcriptase PCR positive for COVID-19 virus U07.1 Cellulitis of arm, left L03.114 COVID-19 ~11/03/22 U07.1 Abnormal weight loss R63.4 Abdominal pain R10.9 MEDINA (dyspnea on exertion) R06.00 Medical History Medical History (Updated 09/19/23 @ 13:45 by GRANT Orozco) Nonspecific interstitial pneumonitis Obesity (BMI 30.0-34.9) Sick sinus syndrome due to SA node dysfunction (02/03/18) dual chamber pacer 02/12 Hypothyroidism (acquired) (05/03/18) Elevated d-dimer evaluated for this by [facility] hem/onc in 04/2020 who recommended to not trend d-dimer in this patient Pneumonitis Spinal stenosis Uterine cancer s/p resection, radiation, in remission Surgical History Surgical History (Updated 10/11/23 @ 10:36 by Clif Lockhart) H/O cervical spine surgery S/P tympanoplasty S/p bilateral carpal tunnel release History of total right knee replacement S/P skin cancer resection LLE S/P hysterectomy with oophorectomy S/P placement of cardiac pacemaker [employer] Status post replacement of both shoulder joints (05/03/18) Tobacco Smoking/Tobacco Use Status: Former Tobacco Use Alcohol Alcohol Intake: current Alcohol intake frequency: a few times a month Alcohol type: other Substance Use Substance use: Occasionally Substance use type: other Details: occasionally uses CBD Prental History History 2 Para 2 Hx # Term Pregnancies 2 Multiple births Hx # Pregnancies Ectopic pregnancies AB induced Hx Number of Living Children AB spontaneous Vital Signs and Lab Results Vital Signs Most Recent Vital Signs in EMR: Most Recent Vital Signs Temp Pulse Resp BP Pulse Ox 36.3 C L 60 16 150/70 H 96 10/12/23 09:16 10/12/23 09:16 10/12/23 09:16 10/12/23 09:16 10/12/23 09:16 Lab Results Blood Type / Crossmatch: No Data to Display Complete Blood Count: No Data to Display Complete Metabolic Panel: No Data to Display Liver Function Panel: No Data to Display Coagulation Panel: No Data to Display Cardiac Panel: No Data to Display Arterial Blood Gas: No Data to Display Venous Blood Gas: No Data to Display Pancreas Panel: No Data to Display Thyroid Panel: No Data to Display Infectious Disease: No Data to Display Blood Cultures: No Data to Display Toxicology Panel: No Data to Display Imaging and Studies Imaging and Studies Study information below may be from another EMR and interpreted by another provider. Please see original notes in EMR for more complete details. EKG Summary: 07/09/20: Exam: Resting ECG Patient Location: E HR:60 bpm ECG Measurements Heart Rate 60 AXIS PA 199 P [id number] QRSd 98 QRS 2 QT 427 T13 QTc 427 Conclusion Atrial-paced rhythm. No acute ST elevation or depression. I have reviewed and I agree with the emergency room physician???s ECG interpretation. Electronically signed by: <Electronically signed by Rosendo Muñiz M.D. in [place]> 07/10/20 1153 Cosigned by: Stress Test Summary: 12/27/19: MPI Conclusion Patient's ejection fraction was 53%. There were no wall motion abnormalities. There is no evidence of ischemia on the imaging portion of this exam. This represents a normal SPECT stress test. Echocardiogram Summary: 03/11/20: Conclusion Left Ventricle : The left ventricle is normal size. The left ventricular systolic function is normal. The left ventricular ejection fraction is within the normal range. There is normal left ventricular wall thickness. There is normal LV segmental wall motion. The left ventricular diastolic function is normal. LVEF is 55-60%. Right Ventricle : The right ventricle is normal size. The right ventricular systolic function is normal. Atria : The left atrium size is normal. The right atrium size is normal. Valves: There are no hemodynamically significant valvular lesions. Great Vessels : IVC is normal in size and collapses >50% with inspiration. The RVSP is 27 mmHg. Compared to echocardiogram dated 12/28/2017: There is no significant change. Pulmonary Function Summary: 05/03/23: Pulmonary Function Test Result Indications: Asthma Interpretation Spirometry: There is no airflow limitation. There was a 21% decrease in FEV1% with administration of 8 mg/mL methacholine Lung Volumes: Normal lung volumes Diffusion Capacity: Normal diffusion Airway Pressure: Normal airways resistance Impression Normal baseline pulmonary function. Positive methacholine challenge. Clinical Correlation therefore is recommended. Anesthesia Assessment and Plan Anesthesia History Personal History: PONV Family History: No Family History of Anesthesia Complications Exercise Tolerance Exercise Tolerance: Metabolic Equivalents>4 Pertinent Negatives Pertinent Negatives: No Symptoms of GERD, No Major Cardiovascular Symptoms or Complaints and No Major Pulmonary Symptoms or Complaints Cardiac & Pulmonary Exam Cardiac Exam: Normal S1/S2 Heart Sounds Pulmonary Exam: Clear Bilateral Breath Sounds Implantable Cardiac Device Does patient have a Pacemaker or an ICD?: Yes Device Cargoman:: [employer] XII Reason for Placement:: Bradycardia. Date of Last Device Interrogation:: 10/05/23 Airway Exam Known Difficult Airway: No Mallampati Class: 1 Mouth Opening: Normal (> 3cm) Thyromental Distance: Greater than 3 cm Neck Range of Motion: Full ROM Neck Circumference: Normal Teeth Condition: Normal Dentition ASA Classification ASA Score: ASA 3 Emergency Case?: No NPO Status NPO Status: NPO Clears >2 hours, Solids >8 hours Anesthesia Plan Resuscitation Status: Full Code Anesthesia Technique: General Anesthesia Airway Planned: LMA Monitors Used: Standard Monitors
[2023-10-12] MEDS: ceFAZolin 2 GM/50 ML BAG IVPB (09:59)
[2023-10-12] MEDS: EPINEPHrine 10 MG/10 ML ML (10:40)
[2023-10-12] MEDS: Bupivacaine 0.5% Pres-Free 30 ML VIAL (10:41)
--- NOTE | 2023-10-12 10:56 | W.PM.OP ---
Date of service: 10/12/23 Time of Service: 10:57 Operative Note Operative Note DATE OF PROCEDURE: 10/12/23 PRE-OP DIAGNOSIS: Left knee internal derangement POST-OP DIAGNOSIS: other (Complex left medial meniscus tear) PROCEDURE: Left knee diagnostic arthroscopy with arthroscopic partial medial meniscectomy SURGEON: Juanjo Wan ANESTHESIA TYPE: General LMA/ETT Refer to Anesthesia Record ESTIMATED BLOOD LOSS: 0 PATHOLOGY: none sent COMPLICATIONS: None Patient was transported to: PACU Patient's condition: stable Indications: I have seen Ana in clinic for symptoms of a meniscus tear. This was confirmed based on MRI and exam findings. Nonoperative measures were exhausted but disability and pain persisted. I discussed knee arthroscopy with meniscal intervention with the patient. I reviewed the risks of the procedure to include, but not limited to, bleeding, infection, pain, stiffness, damage to nerves or vessels, recurrence, blood clot. Despite these risks, the patient elected to proceed. Findings: A diagnostic arthroscopy was performed with the following findings: Suprapatellar Pouch: No significant inflammation, No loose bodies Medial Compartment: Complex medial meniscal tear, involve meniscal root but intact peripheral fibers, grade II chondromalacia, No loose bodies Notch: ACL and PCL were intact Lateral Compartment: No meniscal tear, Intact meniscal root, grade II chondromalacia with an area of grade III chondromalacia over the distal?central lateral femur, No loose bodies Patellofemoral Compartment: Grade II chondromalacia, No apparent patellar maltracking Procedure Description: Ana was greeted in the preoperative holding area where the correct side was identified and marked. The consent was reviewed with the patient and signed. The history and physical was updated. All questions were answered. Ana was taken back to the operating room. The patient was placed into the supine position on the operating room table. All bony prominences were well padded. Prophylactic antibiotics in the form of Cefazolin were administered. The left leg was then prepped with Chloraprep and draped in a standard fashion with stockinette and extremity drape. A timeout to confirm correct identity, side and site, procedure, allergies, anesthesia, and medical concerns was performed. The leg was placed into a pneumatic leg cruz, [id number]. A standard lateral portal was made at the lateral border of the patella tendon in line with the inferior pole of the patella, soft spot. The skin and deep tissue was incised sharply and the blunt trochar was inserted atraumatically. A diagnostic arthroscopy was performed and the findings are listed above. The suprapatellar pouch had no significant inflammatory change. The patellofemoral articulation showed grade II chondromalacia as well as good tracking. The lateral gutter had no loose bodies and the medial gutter had no loose bodies. The knee was brought into some valgus stress in extension to open the medial compartment. A medial portal was made, localized by a spinal needle. The portal was created with an #11 blade through skin and capsule under direct visualization avoiding any meniscal injury. A probe was then inserted into the medial compartment. The medial compartment was fully inspected. The chondral surface of the tibia showed grade I chondromalacia and the surface of the femur showed grade II chondromalacia. The medial meniscus had a complex tear starting in the body and extending all the way towards the root with 2 large displaced fragments from the superior leaflet split in half at the posterior horn. After evaluation, the meniscus was debrided down to a stable base using a series of biters and arthroscopic mik. It was probed afterwards to confirm that the tear had been removed and the meniscus was stable. The meniscal quality was quite poor and resection was continued until there is a stable base of meniscus. A portion of peripheral fibers were left intact from the root to the meniscal body. The notch was then inspected which showed an intact ACL and an intact PCL. The leg was then brought into a figure of 4 position. The lateral compartment was fully inspected with the arthroscope and a probe. The chondral surface of the lateral femur showed an area of grade III chondromalacia over the central portion of the weightbearing lateral femur. The chondral surface of the lateral tibia showed grade I chondromalacia. The lateral meniscus had no meniscal tear. The arthroscope was brought back into the suprapatellar pouch and the leg was in full extension. The knee was thoroughly irrigated with the arthroscopic fluid on high flow and pressure. Inflow was stopped and excess fluid was removed. The wounds were closed with 4-0 Nylon. They were dressed with Xeroform, 4x4 gauze, ABD pad, Kerlix and an VERO wrap. A cryo-cuff was applied. The patient tolerated the procedure well and was returned to the Same Day Surgery area in a stable condition suffering no known complication.
[2023-10-12] MEDS: fentaNYL 100 MCG/2 ML VIAL IVP ×2 (11:07→11:27)
--- NOTE | 2023-10-12 11:56 | W.ANESPOSTOP ---
Postoperative Evaluation Date, Time and Location Date Performed: 10/12/23 Time Performed: 11:56 Patient Location: Day Surgery Unit Vital Signs Most Recent Imported Vital Signs: Most Recent Vital Signs Temp Pulse Resp BP Pulse Ox 36.3 C L 60 16 137/75 95 10/12/23 11:43 10/12/23 11:43 10/12/23 11:43 10/12/23 11:43 10/12/23 11:43 Pain Score Most Recent Pain Score: Most Recent Pain Score Pain Level 4 10/12/23 11:43 Assessment Mental Status: Awake (Alert & Oriented to Patient Baseline) Airway and Respiratory Function: Patent airway with normal (patient baseline) respiratory exam Cardiovascular Function: Hemodynamically Stable Hydration Status: Adequately Hydrated Nausea & Vomiting: No Nausea or Vomiting Pain: Pain is tolerable per patient Peripheral Nerve Block: Patient did not receive a nerve block
[2023-10-12] MEDS: HYDROcodone 5/Acetaminophen 325 TAB PO (12:07)
== END 2023-10-12 14:15 | disposition home or self-care (01) ==
PROVIDERS: PCP Family Medicine; Visit Provider Student in an Organized Health Care Education/Training Program
PROC: (CPT 29870; principal; 2023-10-12 10:00)
DX: S83.242A Other tear of medial meniscus, current injury, left knee, initial encounter (principal); M94.262 Chondromalacia, left knee; J84.9 Interstitial pulmonary disease, unspecified; J45.909 Unspecified asthma, uncomplicated; M48.00 Spinal stenosis, site unspecified; X50.1XXA Overexertion from prolonged static or awkward postures, initial encounter
CPT/HCPCS: 29881; J0690; J1100; J2405; J3010

== ENCOUNTER → 2023-10-24 14:01 | Outpatient (BNVA) | payer MEDICARE, SELFPAY | PROVIDERS: PCP Family Medicine; Referring Provider Family Medicine; Visit Provider Student in an Organized Health Care Education/Training Program | DX: S83.242D Other tear of medial meniscus, current injury, left knee, subsequent encounter (principal); X58.XXXD Exposure to other specified factors, subsequent encounter ==

== ENCOUNTER → 2023-12-01 10:48 | Outpatient (BNVA) | payer MEDICARE, SELFPAY | PROVIDERS: PCP Family Medicine; Referring Provider Family Medicine; Visit Provider Student in an Organized Health Care Education/Training Program | DX: Z47.89 Encounter for other orthopedic aftercare (principal); Z87.828 Personal history of other (healed) physical injury and trauma ==

== ENCOUNTER 2023-12-08 03:55 | Outpatient (CLI) | payer MEDICARE, SELFPAY ==
[2023-12-08 12:35] LABS: Calculated LDL 84 mg/dL (<100); Cholesterol 150 mg/dL (<200); HDL Cholesterol 59 mg/dL (40-60); TSH (W/Ref FT4) 2.74 uIU/mL (0.36-3.74); Triglyceride 35 mg/dL (<150)
[2023-12-13 15:49] LABS: Lab Add On Test DONE
[2023-12-13 16:00] LABS: Magnesium 2.2 mg/dL (1.8-2.4)
[2023-12-13 16:06] LABS: 1,25-Dihydroxyvitamin D 35 pg/mL (18-78)
== END 2023-12-08 03:56 | disposition home or self-care (01) ==
LOC: LOS 03:55
PROVIDERS: PCP Family Medicine; Visit Provider Family Medicine
DX: Z78.0 Asymptomatic menopausal state (principal); E78.5 Hyperlipidemia, unspecified; E03.9 Hypothyroidism, unspecified
CPT/HCPCS: 36415; 80061; 82652; 83735; 84443

== ENCOUNTER → 2023-12-21 10:21 | Outpatient (BNVA) | payer MEDICARE, SELFPAY | PROVIDERS: PCP Family Medicine; Referring Provider Family Medicine; Visit Provider Physician Assistant Surgical | DX: J45.909 Unspecified asthma, uncomplicated (principal); J84.9 Interstitial pulmonary disease, unspecified | CPT/HCPCS: 99214 ==

== ENCOUNTER → 2024-01-25 10:29 | Outpatient (CLI) | payer MEDICARE, SELFPAY ==
--- NOTE | 2024-01-25 11:23 | DI.RAD_ITS ---
Exam(s) XR LUMBAR SPINE COMP W FLEX/EX EXAM: XR LUMBAR SPINE COMP W FLEX/EX CLINICAL HISTORY: Looking to see if there is any movement at L5-S1 M47.817 SPONDYLOSIS W/O. TECHNIQUE: 2D digital imaging was performed. Seven views. Additional lateral views in flexion and extension were performed. COMPARISON: CR XR LUMBAR SPINE COMPLETE from 12/20/2019 FINDINGS: BONES: No fracture or destructive lesion. Vertebral body heights are maintained. Prominent facet deg enerative changes, greatest at L4-5 and L5-S1. DISKS: Mild narrowing of the L2-3 disc space. Severe narrowing of the L3-4 disc space, now with endp late osteophytes and sclerosis in the endplates. Severe narrowing of the L5-S1 disc space. ALIGNMENT: Levoscoliosis. Stable mild spondylolisthesis at L3-4 through L5-S1 secondary to facet david nt degenerative changes. No visible subluxation with flexion or extension. SOFT TISSUE: Pacemaker leads noted. Distal aorta is calcified. Surgical clips in the pelvis. IMPRESSION: Severe degenerative changes of the lower lumbar spine. No subluxation with flexion or extension. DATA REPOSITORY: RADIATION DOSE DELIVERED:
== END ==
PROVIDERS: PCP Family Medicine; Visit Provider Preventive Medicine Occupational Medicine
DX: M47.817 Spondylosis without myelopathy or radiculopathy, lumbosacral region (principal)
CPT/HCPCS: 72114

== ENCOUNTER 2024-02-17 03:50 | Outpatient (CLI) | payer MEDICARE, SELFPAY ==
[2024-02-17] MEDS: Inhaler, Assist Device 1 EACH MC (14:32)
[2024-02-17] MEDS: Levalbuterol HFA 15 GM INH 4 PUFF IH (14:32)
--- NOTE | 2024-02-20 08:07 | W.PFT ---
Date of service: 02/17/24 Time of Service: 13:02 Pulmonary Function Test Result Indications: ILD Interpretation Spirometry: There is no airflow limitation. No bronchodilator response. Lung Volumes: Normal lung volumes Diffusion Capacity: Normal diffusion Airway Pressure: Normal airways resistance Impression Normal pulmonary function testing Clinical Correlation therefore is recommended.
== END 2024-02-17 03:51 | disposition home or self-care (01) ==
LOC: RT 03:51
PROVIDERS: PCP Family Medicine; Visit Provider Physician Assistant Surgical
DX: J84.9 Interstitial pulmonary disease, unspecified (principal)
CPT/HCPCS: 94060; 94726; 94729

== ENCOUNTER → 2024-02-23 09:10 | Outpatient (BNVA) | payer MEDICARE, SELFPAY | PROVIDERS: PCP Family Medicine; Referring Provider Family Medicine; Visit Provider Physician Assistant Surgical | DX: J45.909 Unspecified asthma, uncomplicated (principal); J84.9 Interstitial pulmonary disease, unspecified | CPT/HCPCS: 99214 ==

== ENCOUNTER 2024-02-28 17:16 | Outpatient (REF) | payer MEDICARE, SELFPAY | END 2024-02-28 17:17 | disposition home or self-care (01) | LOC: LBN 17:16 | PROVIDERS: PCP Family Medicine; Visit Provider Physician Assistant | DX: N39.0 Urinary tract infection, site not specified (principal) | CPT/HCPCS: 87077; 87086; 87186 ==

== ENCOUNTER 2024-03-10 12:09 | Outpatient (REF) | payer MEDICARE, SELFPAY ==
[2024-03-10 15:14] LABS: Bilirubin Negative (Negative); Blood Large (Negative); Clarity Turbid (Clear); Glucose Negative (Negative); Ketones Negative (Negative); Leukocyte Esterase Moderate (Negative); Nitrite Negative (Negative); Specific Gravity 1.025 (1.005-1.025); Urobilinogen 0.2 mg/dL (Up to 0.2); pH 5.5 (5-8)
[2024-03-10 15:41] LABS: C & S Indicated? Yes; WBC >50 HPF (0-5)
== END 2024-03-10 12:10 | disposition home or self-care (01) ==
LOC: LBN 12:09
PROVIDERS: PCP Family Medicine; Visit Provider Nurse Practitioner Family
DX: N39.0 Urinary tract infection, site not specified (principal)
CPT/HCPCS: 81003; 81015; 87086

== ENCOUNTER → 2024-04-04 09:13 | Outpatient (BNVA) | payer MEDICARE, SELFPAY | PROVIDERS: PCP Family Medicine; Referring Provider Family Medicine; Visit Provider Physician Assistant Surgical | DX: J84.9 Interstitial pulmonary disease, unspecified (principal) | CPT/HCPCS: 99214 ==

== ENCOUNTER 2024-04-25 09:16 | Outpatient (CLI) | payer MEDICARE, SELFPAY ==
[2024-04-25 09:26] VITALS: BP 129/71; PULSE 60; RESP 20; TEMP 36.7; O2SAT 95
--- NOTE | 2024-04-25 10:09 | PDOC.PAIN_ITS ---
Date of service: 04/25/24 Time of Service: 10:09 Pain Managment Procedure Note Procedure Note Procedure Note: PROCEDURE NOTE Bilateral Lumbar Medial Branch Blocks Date of Service: April 25, 2024 Patient: Ana Sierra Provider: Rosendo Odell DO, MPH Ana Sierra has been referred to the [facility] for lumbar medial branch blocks. Pre-operative diagnosis: Lumbar Spondylosis without Myelopathy Post-operative diagnosis: Same Pre-procedure pain: VAS= 8-9/10 COMMENTS: She had bilateral L2-L4 RFA last year with limited relief. I evaluated her in the office and we decided to focus on the last level (L5-S1). Her symptoms have not changed. Nirmal was interviewed and the medical records were reviewed. There were no medical, pharmacologic, radiographic or other structural contraindications to attempting fluoroscopically guided local anesthetic lumbar medial branch blocks. Risks and potential side effects were discussed. I also discussed the potential benefit(s) of the procedure with Ana, and voiced concerns were addressed. After Ana was completely informed about the procedure, the printed consent form was signed. A standard time-out procedure was performed. Ana was placed in the prone position on the fluoroscopy table. Automated blood pressure cuff and pulse oximeter were applied. The skin entry points for approaching the anatomic target points of the segmental medial branches of bilateral L4 and L5 were identified with fluoroscopy and marked. The skin at the target site area was thoroughly prepared with Chlorhexadine. The skin was then draped. Next, a 25 gauge 3.5 spinal needle was placed under fluoroscopic guidance down on to the target point (the articular pillar) for each respective segmental medial branch. Position was confirmed in A/P and lateral views. Aspiration revealed no blood or clear fluid. Next, 0.25ml of omnipaque 240 was injected at each level. No contrast following a vascular or neural pattern was visualized under continuous fluoroscopy. Next, 0.25 ml of preservative-free 0.5% bupivicaine was injected at each level. There was no unusual discomfort expressed by Ana. The needles were withdrawn without difficulty. (49 mls of Omnipaque was wasted) Ana was observed and was without hemodynamic, neurologic, or allergic reactions.? Fluoroscopic images were digitally archived. Provacative testing using the Modified Martinez's facet loading test- Left side Right Side Directly before the block VAS (0-10) = 8-9/10 VAS (0-10) = 8-9/10 Five minutes after the block VAS (0-10) = 1/10 VAS (0-10) = 1/10 Percentage relief obtained with this diagnostic block 90% 90% Any improved physical functioning directly after the blocks? Able to move her low back with ease. Follow up plans and appointments were discussed with Ana. Ana was instructed to keep careful note of how the usual pain was modified by these injections. Specifically, to keep a pain diary for the next 4 hours using a numeric pain scale of 0-10 and report these results. Post procedure instruction was given as documented in the nursing documentation and having met discharge criteria, the patient was [facility] from the [facility]. Based on the medial branches blocked today, if they patient has adequate relief and we are able to proceed to radiofrequency ablation, the treatment should result in the denervation of the bilateral L5-S1 facet joints. We would expect to denervate a total of 2 facets during the radiofrequency ablation. COMMENTS: No apparent complications. Post-procedure pain: VAS= 1/10 Ana will call back with 0-4 hour post-procedure pain scores. I personally performed the entire procedure. ROSENDO ODELL DO, MPH ABPM&R-subspecialty board certification in Pain Medicine [facility]
--- NOTE | 2024-04-25 10:11 | DI.RAD_ITS ---
Exam(s) XR PAIN CLINIC LUMBAR SP 2V EXAM: XR PAIN CLINIC LUMBAR SP 2V CLINICAL HISTORY: DX: Lumbar spondylosis TECHNIQUE: 2D and realtime digital imaging was performed. CONTRAST MATERIAL: Refer to procedure report. COMPARISON: No exams were available for comparison FINDINGS: Fluoroscopy was provided for Dr. Odell during the performance of a bilateral lumbar medial branch blo cks. Please refer to the procedure report for complete details. Ka,r=17.1 mGy IMPRESSION: RADIATION DOSE DELIVERED: 0.0 0.0 0
[2024-04-25 10:15] VITALS: BP 140/82; PULSE 60; RESP 14; O2SAT 95
[2024-04-25] MEDS: Nerve Block Tray 1 EACH MC (10:16)
[2024-04-25] MEDS: Omnipaque 240 MG/ML 50 ML BTL IJ (10:17)
[2024-04-25] MEDS: Bupivacaine 0.5% Pres-Free 10 ML VIAL IJ (10:17)
== END 2024-04-25 09:17 | disposition home or self-care (01) ==
LOC: PC 09:16
PROVIDERS: PCP Family Medicine; Visit Provider Preventive Medicine Occupational Medicine
DX: M54.50 Low back pain, unspecified (principal); M47.816 Spondylosis without myelopathy or radiculopathy, lumbar region
CPT/HCPCS: 64493; 72100; J0665; Q9967

== ENCOUNTER → 2024-05-10 00:08 | Outpatient (CLI) | payer MEDICARE, SELFPAY ==
--- NOTE | 2024-05-10 09:45 | DI.CT_ITS ---
Exam(s) CT THORAX CTA EXAM: CT THORAX CTA CLINICAL HISTORY: reassess asc. thor. aort. an. I71.21 ANEURYSM OD ASCENDING AORTA. TECHNIQUE: Imaging Protocol: Axial CT angiography was performed with multi-slice acquisition and mu lti-planar and/or 3D reconstructions. CONTRAST MATERIAL: Intravenous: Omnipaque 350 contrast volume:100 mL COMPARISON: CT CT CHEST WO from 04/22/2023 FINDINGS: Tracheobronchial tree: Patent where visualized. Pulmonary parenchyma: No focal consolidating infiltrates are present. There is mild underlying pulmon suad fibrosis. There is mild thickening of the interstitium more prominent when compared to the prior examination. A superimposed edema or pneumonia cannot be excluded. Pulmonary Arteries: No evidence of filling defect to suggest pulmonary emboli. Mediastinum and Naila: No dominant adenopathy or fluid collection. The esophagus is unremarkable. Visualized thyroid gland: Unremarkable. Pleura: No effusion or pneumothorax. Heart: The heart is not dilated. Coronary artery calcifications are present. No pericardial effusion. Aorta: The ascending thoracic aorta measures 4.2 x 3.8 cm. No evidence of dissection. Atherosclerotic calcification is present. Upper abdomen: Unremarkable. Soft tissues: Unremarkable. Bones: Within normal limits for the patient's age.The patient has bilateral shoulder replacements. Th ere are old healed rib fractures. IMPRESSION: 1. 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 No evidence of dissection. 2. Mild increased thickening of the interstitium bilaterally more prominent compared to the prior exa mination. There is underlying pulmonary fibrosis. A superimposed pulmonary edema or pneumonia cannot be excluded. Please correlate clinically. RADIATION DOSE DELIVERED: Total DLP Total DLP DATA REPOSITORY: All CT scans at this facility are submitted to the National Radiology Data Registry (NRDR) Dose Index Registry (DIR) with the [employer] (ACR). RADIATION OPTIMIZATION: All CT scans at this facility use at least one of these dose optimization te chniques: automated exposure control; mA and/or kV adjustment per patient size (includes targeted exa ms where dose is matched to clinical indication); or iterative reconstruction.
[2024-05-10 12:30] LABS: CREATININE 1.1 mg/dL (0.55-1.02)
[2024-05-10] MEDS: Normal Saline - Diluent 50 ML VIAL IJ (12:42)
[2024-05-10] MEDS: Omnipaque 350 MG/ML 500 ML BTL-Imaging package IJ (12:43)
== END ==
PROVIDERS: PCP Family Medicine; Visit Provider Family Medicine
DX: I71.21 Aneurysm of the ascending aorta, without rupture (principal)
CPT/HCPCS: 71275; 82565

== ENCOUNTER 2024-06-14 13:34 | Outpatient (REF) | payer MEDICARE, SELFPAY | END 2024-06-14 13:35 | disposition home or self-care (01) | LOC: LBN 13:34 | PROVIDERS: PCP Family Medicine; Visit Provider Physician Assistant | DX: N39.0 Urinary tract infection, site not specified (principal); B96.20 Unspecified Escherichia coli [E. coli] as the cause of diseases classified elsewhere | CPT/HCPCS: 87077; 87086; 87186 ==

== ENCOUNTER 2024-06-21 09:53 | Outpatient (CLI) | payer MEDICARE, SELFPAY ==
--- NOTE | 2024-06-21 06:00 | DI.RAD_ITS ---
Exam(s) XR PAIN CLINIC LUMBAR SP 2V EXAM: XR PAIN CLINIC LUMBAR SP 2V CLINICAL HISTORY: Lumbar Spondylosis TECHNIQUE: 2D and realtime digital imaging was performed. CONTRAST MATERIAL: Refer to procedure report. COMPARISON: No exams were available for comparison FINDINGS: Fluoroscopy was provided for Dr. Odell during the performance of a lumbar medial branch block. Frantz bourgeois refer to the procedure report for complete details. Ka,r=9.74 mGy IMPRESSION: RADIATION DOSE DELIVERED: 0.0 0.0 0
[2024-06-21 10:13] VITALS: BP 148/70; PULSE 60; RESP 20; TEMP 36.7; O2SAT 97
[2024-06-21 10:50] VITALS: PULSE 61; RESP 18; O2SAT 97
[2024-06-21 11:00] VITALS: PULSE 60; RESP 15; O2SAT 96
[2024-06-21 11:03] VITALS: BP 151/88; PULSE 60
[2024-06-21] MEDS: Omnipaque 240 MG/ML 50 ML BTL IJ (11:10)
[2024-06-21] MEDS: Bupivacaine 0.5% Pres-Free 10 ML VIAL IJ (11:10)
[2024-06-21] MEDS: Nerve Block Tray 1 EACH MC (11:11)
--- NOTE | 2024-06-21 11:50 | PDOC.PAIN_ITS ---
Date of service: 06/21/24 Time of Service: 11:50 Pain Managment Procedure Note Procedure Note Procedure Note: PROCEDURE NOTE Right Lumbar Medial Branch Blocks #2 Date of Service: June 21, 2024 Patient: Ana Sierra Provider: Rosendo Odell DO, MPH Ana Sierra has been [facility] for lumbar medial branch blocks. 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 Thus, we will just do the right side for this second procedure. Nirmal was interviewed and the medical records were reviewed. There were no medical, pharmacologic, radiographic or other structural contraindications to attempting fluoroscopically guided local anesthetic lumbar medial branch blocks. Risks and potential side effects were discussed. I also discussed the potential benefit(s) of the procedure with Ana, and voiced concerns were addressed. After Ana was completely informed about the procedure, the printed consent form was signed. A standard time-out procedure was performed. Ana was placed in the prone position on the fluoroscopy table. Automated blood pressure cuff and pulse oximeter were applied. The skin entry points for approaching the anatomic target points of the segmental medial branches of right L3,L4,L5 were identified with fluoroscopy and marked. The skin at the target site area was thoroughly prepared with Chlorhexadine. The skin was then draped. Next, a 25 gauge 3.5 spinal needle was placed under fluoroscopic guidance down on to the target point (the articular pillar) for each respective segmental medial branch. Position was confirmed in A/P and lateral views. Aspiration revealed no blood or clear fluid. Next, 0.25ml of omnipaque 240 was injected at each level. No contrast following a vascular or neural pattern was visualized under continuous fluoroscopy. Next, 0.25 ml of preservative-free 0.5% bupivicaine was injected at each level. There was no unusual discomfort expressed by Ana. The needles were withdrawn without difficulty. (49 mls of Omnipaque was wasted) Ana was observed and was without hemodynamic, neurologic, or allergic reactions.? Fluoroscopic images were digitally archived. Provacative testing using the Modified Martinez's facet loading test- Right Side Directly before the block VAS (0-10) = 7/10 Five minutes after the block VAS (0-10) = 0/10 Percentage relief obtained with this diagnostic block 100% Any improved physical functioning directly after the blocks? Able to move her low back without pain. No left sided pain Follow up plans and appointments were discussed with Ana. Ana was instructed to keep careful note of how the usual pain was modified by these injections. Specifically, to keep a pain diary for the next 4 hours using a numeric pain scale of 0-10 and report these results. Post procedure instruction was given as documented in the nursing documentation and having met discharge criteria, the patient was [facility]. Based on the medial branches blocked today, if they patient has adequate relief and we are able to proceed to radiofrequency ablation, the treatment should result in the denervation of the right L4-L5 and L5-S1 facet joints. We would expect to denervate a total of 2 facets during the radiofrequency ablation. COMMENTS: No apparent complications. Post-procedure pain: VAS= 0/10 Ana will call back with 0-4 hour post-procedure pain scores. I personally performed the entire procedure. ROSENDO ODELL DO, MPH ABPM&R-subspecialty board certification in Pain Medicine [facility] [facility]
== END 2024-06-21 09:54 | disposition home or self-care (01) ==
LOC: PC 09:54
PROVIDERS: PCP Family Medicine; Visit Provider Preventive Medicine Occupational Medicine
DX: M54.50 Low back pain, unspecified (principal); M47.816 Spondylosis without myelopathy or radiculopathy, lumbar region
CPT/HCPCS: 64493; 64494; 72100; J0665; Q9967

== ENCOUNTER 2024-07-18 07:45 | Outpatient (CLI) | payer MEDICARE, SELFPAY ==
[2024-07-18] VITALS (17 sets, daily range): BP systolic 131–156; BP diastolic 65–98; PULSE 59–61; RESP 12–20; TEMP 36.2; O2SAT 94–99
[2024-07-18] MEDS: Midazolam 2 MG/2 ML VIAL IVP (08:44)
[2024-07-18] MEDS: Lactated Ringers 500 ML 80 ML IV (08:44)
[2024-07-18] MEDS: fentaNYL 100 MCG/2 ML VIAL IVP (08:45)
[2024-07-18] MEDS: Nerve Block Tray 1 EACH MC (09:14)
[2024-07-18] MEDS: Bupivacaine 0.5% Pres-Free 10 ML VIAL IJ (09:15)
[2024-07-18] MEDS: methylPREDNISolone ACETATE 40 MG/ML VIAL IJ (09:15)
[2024-07-18] MEDS: Lidocaine 2% Pres-Free 5 ML VIAL IJ (09:15)
--- NOTE | 2024-07-18 09:17 | DI.RAD_ITS ---
Exam(s) XR PAIN CLINIC LUMBAR SP 2V EXAM: XR PAIN CLINIC LUMBAR SP 2V CLINICAL HISTORY: Lumbar Spondylosis TECHNIQUE: 2D and realtime digital imaging was performed. CONTRAST MATERIAL: Refer to procedure report. COMPARISON: No exams were available for comparison FINDINGS: Fluoroscopy was provided for Dr. Odell during the performance of a radiofrequency ablation. Please r efer to the procedure report for complete details. Ka,r=15.6 mGy IMPRESSION: RADIATION DOSE DELIVERED: 0.0 0.0 0
--- NOTE | 2024-07-18 12:26 | PDOC.PAIN ---
Date of service: 07/18/24 Time of Service: 12:26 Pain Managment Procedure Note Procedure Note Procedure Note: PROCEDURE NOTE RIGHT LUMBAR RADIOFREQUENCY ABLATION Date of Service: July 18, 2024 Patient:? Ana Sierra? Provider:? Rosendo Odell DO, MPH Ana Sierra has been [facility] to [facility] Right Lumbar Radiofrequency Ablation with the [employer] Machine.? Pre Operative Diagnosis: Lumbosacral Spondylosis without Myelopathy Post Operative Diagnosis: Same Pre procedure pain; VAS= 10/10 Comments: She did very well with the LMBBs. She does have a pacemaker. PROCEDURE: Radiofrequency Ablation of medial branches - right L3, L4, L5 and lateral branches of bilateral S1. Ana?was interviewed and the medical record was reviewed.? There were no medical, pharmacologic, radiographic or other structural contraindications to attempting fluoroscopically guided RIGHT Lumbar Radiofrequency Ablation.?Risks and expected side effects as well as potential benefit of the procedure were reviewed with Ana, and the patient's voiced concerns were addressed.? The printed consent form was signed.? Standard time-out procedure was performed. Ana was brought into the fluoroscopy suite and positioned into the prone position on the fluoroscopy table and allowed to adjust to a position of comfort. A grounding pad was placed on the left abdomen. The sterile field was prepared using chlorhexidine preparation of the skin and sterile draping. Local anesthesia superficial and deep was provided by local infiltration of 2% lidocaine. A 17g 100 mm radiofrequency introducer needle was placed to the planned anatomic targets guided with intermittent fluoroscopy with a perpendicular approach to terminally place at the junction of the superior articular process and the transverse process of the right L4, L5, the base of the sacral ala on the right for the L5 medial branch nerve and the area between base of the sacral ala to the S1 foramen on the right. The stylets were removed and radiofrequency probes with a 4mm active tip were then inserted. Needle tip position of the probes was verified in the AP, oblique, and lateral views. At each site, the medial branch nerve was stimulated at 2 Hz to a maximum 1-2 volts determined to finalize safe needle and electrode placement. The patient was awake and responsive during this portion of the procedure. Each target was anesthetized with 1-2 mL of 2 % Lidocaine for anesthesia for lesioning and then each target was lesioned at 80 degrees Celsius for 2 minutes and 30 seconds. Tissue impedances were noted to be between 250 and 500 Ohms. Next I injected 1/4 cc of Depomedrol (40 mg/cc) followed by 1 cc of 0.5% Bupivacaine at each segmental sensory level. There was no unusual discomfort expressed by Ana. The needles were withdrawn without difficulty and bandages placed over the needle placement sites, the patient was observed and was without hemodynamic, neurologic, or allergic reactions. Fluoroscopic images were digitally archived. POST PROCEDURE EVALUATION: IMPRESSION: 1. Summary of procedure. Medication given is documented in the MAR. 2. Follow up plan: Ana to contact [facility] as needed.?This procedure may be repeated if the patient achieves at least 50% improvement in pain/function for at least 6 months. 3. Estimated Blood Loss: <5 mls 4. Fluoroscopy time: Documented in the EMR. Follow up plans and appointments were discussed with the Ana. Post procedure instruction was given as documented in nursing documentation and having met discharge criteria, Ana was discharged from the [facility]. COMMENTS: No apparent complications. Post-procedure pain: VAS= 2/10. She was seen by cardiology directly after the procedure and there was no issues with her pacemaker. I personally completed the entire procedure. ROSENDO ODELL DO, MPH ABPM&R - Subspecialty board certification in Pain Medicine [facility] [facility]
== END 2024-07-18 07:46 | disposition home or self-care (01) ==
LOC: PC 07:45
PROVIDERS: PCP Family Medicine; Visit Provider Preventive Medicine Occupational Medicine
DX: M54.50 Low back pain, unspecified (principal); M47.817 Spondylosis without myelopathy or radiculopathy, lumbosacral region
CPT/HCPCS: 64635; 64636; 72100; J0665; J1010; J2250; J3010

== ENCOUNTER → 2024-07-18 09:54 | Outpatient (BNVA) | payer MEDICARE, SELFPAY | PROVIDERS: PCP Family Medicine; Referring Provider Family Medicine; Visit Provider Student in an Organized Health Care Education/Training Program | DX: Z95.810 Presence of automatic (implantable) cardiac defibrillator (principal) | CPT/HCPCS: 93280 ==

== ENCOUNTER 2024-08-24 18:58 | Outpatient (REF) | payer MEDICARE, SELFPAY | END 2024-08-24 18:59 | disposition home or self-care (01) | LOC: LBN 18:58 | PROVIDERS: PCP Family Medicine; Visit Provider Nurse Practitioner Family | DX: N39.0 Urinary tract infection, site not specified (principal); B96.29 Other Escherichia coli [E. coli] as the cause of diseases classified elsewhere; R82.89 Other abnormal findings on cytological and histological examination of urine | CPT/HCPCS: 87077; 87086; 87186 ==

== ENCOUNTER 2024-10-04 15:32 | Outpatient (REF) | payer MEDICARE, SELFPAY | END 2024-10-04 15:33 | disposition home or self-care (01) | LOC: LBN 15:32 | PROVIDERS: PCP Family Medicine; Visit Provider Physician Assistant | DX: N39.0 Urinary tract infection, site not specified (principal) | CPT/HCPCS: 87077; 87086; 87186 ==

== ENCOUNTER → 2024-10-09 09:28 | Outpatient (BNVA) | payer MEDICARE, SELFPAY | PROVIDERS: PCP Family Medicine; Referring Provider Family Medicine; Visit Provider Physician Assistant Surgical | DX: J45.909 Unspecified asthma, uncomplicated (principal); J84.9 Interstitial pulmonary disease, unspecified | CPT/HCPCS: 94010; 99214 ==

== ENCOUNTER 2024-12-31 13:53 | Outpatient (CLI) | payer MEDICARE, SELFPAY ==
--- NOTE | 2024-12-31 12:15 | DI.RAD_ITS ---
Exam(s) XR CHEST 2V PA LATERAL EXAM: XR CHEST 2V PA LATERAL CLINICAL HISTORY: R05.9 Cough, eval pna TECHNIQUE: 2D digital imaging was performed. Two views. COMPARISON: CR XR CHEST 2V PA LATERAL from 12/13/[address] CHEST WO from 04/22/[address] THORAX CTA from 05/10/2024 FINDINGS: HEART: Normal size. Pacemaker peer Aorta: Not dilated. PULMONARY VASCULATURE: Normal. MEDIASTINUM: Unremarkable. LUNGS: Moderate pulmonary fibrosis. No superimposed infiltrate or CHF. PLEURAL SPACE: No pleural effusion or pneumothorax. BONE:Unremarkable for age. Bilateral shoulder prostheses. SOFT TISSUES: Unremarkable. IMPRESSION: No acute abnormality. DATA REPOSITORY: RADIATION DOSE DELIVERED:
== END 2024-12-31 14:13 ==
LOC: DI 13:54
PROVIDERS: PCP Family Medicine; Visit Provider Nurse Practitioner Family
DX: R05.9 Cough, unspecified (principal)
CPT/HCPCS: 71046

== ENCOUNTER 2025-01-09 14:20 | Outpatient (CLI) | payer MEDICARE, SELFPAY ==
[2025-01-09 17:19] LABS: TSH (W/Ref FT4) 1.25 uIU/mL (0.36-3.74); Vitamin D 25 Total 44.5 ng/mL (30-100)
== END 2025-01-09 14:21 | disposition home or self-care (01) ==
LOC: LBO 14:21
PROVIDERS: PCP Family Medicine; Visit Provider Family Medicine
DX: E03.9 Hypothyroidism, unspecified (principal); G40.909 Epilepsy, unspecified, not intractable, without status epilepticus
CPT/HCPCS: 36415; 82306; 84443

== ENCOUNTER 2025-01-25 00:17 | Outpatient (CLI) | payer MEDICARE, SELFPAY ==
--- NOTE | 2025-01-25 06:15 | DI.CT_ITS ---
Exam(s) CT CHEST WO EXAM: CT CHEST WO CLINICAL HISTORY: reassess pulmonary fibrosis,PULMONARY NODULE,R91.1 TECHNIQUE: Imaging Protocol: Axial computed tomography images with coronal and sagittal reformatted images were created and reviewed. Computer aided detection (CAD) was utilized. CONTRAST MATERIAL: Intravenous: Omnipaque 350 Contrast volume:structured data ml. COMPARISON: CT CT THORAX CTA from 05/10/2024 CR XR CHEST 2V PA LATERAL from 12/31/2024 FINDINGS: Pulmonary parenchyma: No consolidation. No dominant measurable mass. Cysts interstitial thickening, greater peripherally and at the lower lobes. Roughly stable from prior. Some areas of air trapping a re present. Tracheobronchial tree: No bronchiectasis or mucous plugging. Mediastinum and Naila: No dominant adenopathy or fluid collection. Pleura: No effusion. No pneumothorax. Heart: The heart is mildly dilated. Mitral annular calcification. Coronary artery calcifications are seen. Pacemaker. Aorta: At ascending aorta measures 4.1 by 3.9 cm. Mild atherosclerotic changes. Pulmonary arteries: No gross evidence of emboli. Upper abdomen: No acute findings. Bones: Degenerative changes in the spine. Bilateral shoulder prostheses create artifact. Old lef t rib fractures. Soft tissues: Pacemaker battery pack over the left pectoral muscle. IMPRESSION: Stable pulmonary fibrosis. No evidence of pulmonary nodules or infiltrates.. RADIATION DOSE DELIVERED: 230.47mGy.cm Total DLP DATA REPOSITORY: All CT scans at this facility are submitted to the National Radiology Data Registry (NRDR) Dose Index Registry (DIR) with the [employer] (ACR). RADIATION OPTIMIZATION: All CT scans at this facility use at least one of these dose optimization te chniques: automated exposure control; mA and/or kV adjustment per patient size (includes targeted exa ms where dose is matched to clinical indication); or iterative reconstruction.
== END 2025-01-25 00:37 ==
LOC: DI 00:17
PROVIDERS: PCP Family Medicine; Visit Provider Family Medicine
DX: R91.1 Solitary pulmonary nodule (principal)
CPT/HCPCS: 71250

== ENCOUNTER → 2025-03-13 08:40 | Outpatient (BNVA) | payer MEDICARE, SELFPAY | PROVIDERS: PCP Family Medicine; Referring Provider Family Medicine; Visit Provider Physician Assistant Surgical | DX: J45.909 Unspecified asthma, uncomplicated (principal); J84.9 Interstitial pulmonary disease, unspecified | CPT/HCPCS: 99214 ==

== ENCOUNTER 2025-03-19 03:59 | Outpatient (CLI) | payer MEDICARE, SELFPAY ==
[2025-03-19] MEDS: Levalbuterol HFA 15 GM INH 4 PUFF IH (14:38)
[2025-03-19] MEDS: Inhaler, Assist Device 1 EACH MC (14:38)
--- NOTE | 2025-03-20 10:52 | W.PFT ---
Date of service: 03/19/25 Time of Service: 13:04 Pulmonary Function Test Result Indications: Asthma Interpretation Spirometry: There is no airflow limitation. There is no significant bronchodilator response. Lung Volumes: Normal lung volumes Diffusion Capacity: Normal diffusion Airway Pressure: Normal airways resistance Impression Normal pulmonary function testing. Clinical Correlation therefore is recommended.
== END 2025-03-19 04:00 | disposition home or self-care (01) ==
LOC: RT 03:59
PROVIDERS: PCP Family Medicine; Visit Provider Student in an Organized Health Care Education/Training Program
DX: J45.909 Unspecified asthma, uncomplicated (principal)
CPT/HCPCS: 94060; 94726; 94729

== ENCOUNTER 2025-09-11 13:59 | Outpatient (CLI) | payer MEDICARE, SELFPAY ==
--- NOTE | 2025-09-11 11:15 | DI.RAD_ITS ---
Exam(s) XR SHOULDER RT COMPLETE 2+V EXAM: XR SHOULDER RT COMPLETE 2+V CLINICAL HISTORY: RIGHT SHOULDER PAIN. TECHNIQUE: 2D digital imaging was performed of the right shoulder. Four images were obtained. AP, Grashey, Y-view and axillary views were obtained. COMPARISON: CR CHEST 2 VIEWS PA,LAT from 01/16/2013 CR CHEST 2 VIEWS PA,LAT from 12/16/2017 CR XR CHEST 2V PA LATERAL from 12/20/2019 CR XR CHEST 2V PA LATERAL from 12/13/2022 CR XR CHEST 2V PA LATERAL from 12/31/[address] CHEST WO from 01/25/2025 FINDINGS: BONES: No acute fracture is present. No bony destructive lesion is seen. JOINTS: The patient has a right shoulder replacement. There is lucency seen at the glenoid. There is a mottled appearance of the glenoid. SOFT TISSUE: Normal. IMPRESSION: 1. The patient has a right shoulder prosthesis. 2. There are no dedicated right shoulder films for comparison. There is a mottled appearance of the right glenoid and there is lucency seen in the glenoid. CT scan should be considered to assess for integrity of the glenoid. DATA REPOSITORY: RADIATION DOSE DELIVERED:
== END 2025-09-11 14:00 | disposition home or self-care (01) ==
LOC: DIORS 13:59
PROVIDERS: PCP Family Medicine; Referring Provider Family Medicine; Visit Provider Student in an Organized Health Care Education/Training Program
DX: M25.511 Pain in right shoulder (principal); Z96.611 Presence of right artificial shoulder joint; Z96.612 Presence of left artificial shoulder joint
CPT/HCPCS: 99214; 73030

== ENCOUNTER 2025-09-13 05:01 | Outpatient (CLI) | payer MEDICARE, SELFPAY ==
--- NOTE | 2025-09-13 05:45 | DI.CT_ITS ---
Exam(s) CT UPPER EXTREMITY RT WO EXAM: CT UPPER EXTREMITY RT WO CLINICAL HISTORY: ? FAILURE PRIOR TSA,SURGICAL PLANNING,RT SHOULDER PAIN,M25.511 TECHNIQUE: Imaging Protocol: Axial computed tomography images with coronal and sagittal reformatted images were created and reviewed. CONTRAST MATERIAL: Noncontrast COMPARISON: CR XR CHEST 2V PA LATERAL from 12/31/2024 CR XR SHOULDER RT COMPLETE 2+V from 09/11/2025 FINDINGS: Bones: Right shoulder prosthesis creates artifact. This limits evaluation of the surrounding bone. There is abnormal lucency and bony fragmentation involving the glenoid. No lucencies are seen around the humeral portion of the prosthesis. Extensive degenerative changes are noted in the lower 3rd cervical and thoracic spine. A pacemaker is noted. There are chronic interstitial changes in the right lung which is suboptimally evaluated due to motion. Soft Tissues: Normal. IMPRESSION: Right shoulder prosthesis. Abnormal lucency in the glenoid with bony fragmentation. RADIATION DOSE DELIVERED: 238.8mGy.cm Total DLP DATA REPOSITORY: All CT scans at this facility are submitted to the National Radiology Data Registry (NRDR) Dose Index Registry (DIR) with the [employer] (ACR). RADIATION OPTIMIZATION: All CT scans at this facility use at least one of these dose optimization techniques: automated exposure control; mA and/or kV adjustment per patient size (includes targeted exams where dose is matched to clinical indication); or iterative reconstruction.
== END 2025-09-13 05:21 ==
LOC: DI 05:01
PROVIDERS: PCP Family Medicine; Visit Provider Student in an Organized Health Care Education/Training Program
DX: M25.511 Pain in right shoulder (principal); Z96.611 Presence of right artificial shoulder joint
CPT/HCPCS: 73200

== ENCOUNTER 2025-09-13 09:12 | Outpatient (CLI) | payer MEDICARE, SELFPAY ==
[2025-09-13 08:28] LABS: Abs Immature Grans 0.03 10^3/uL (0.0-0.06); HCT 39.6 % (36.0-46.0); HGB 13.1 g/dL (11.2-15.7); Immature Grans % 0.4 %; MCH 31.1 pg (27.0-33.0); MCHC 33.1 % (32.0-36.0); MCV 94 fL (80-95); MPV 9.4 fL (8.0-11.0); Platelet Count 210 10^3/uL (130-400); RBC 4.21 10^6/uL (3.93-5.22); RDW 12.0 % (11.7-14.6); RDW-SD 41.6 fL; WBC 7.63 10^3/uL (4.4-10.8)
[2025-09-13 08:31] LABS: ESR 21 mm/hr (0-30)
[2025-09-13 09:03] LABS: C-Reactive Protein < 0.50 mg/dL (<or=0.5)
== END 2025-09-13 09:13 | disposition home or self-care (01) ==
LOC: LBO 09:12
PROVIDERS: PCP Family Medicine; Visit Provider Student in an Organized Health Care Education/Training Program
DX: M25.511 Pain in right shoulder (principal)
CPT/HCPCS: 36415; 85652; 85025; 86140

== ENCOUNTER → 2025-09-16 10:40 | Outpatient (BNVA) | payer MEDICARE, SELFPAY | PROVIDERS: PCP Family Medicine; Referring Provider Family Medicine; Visit Provider Physician Assistant Surgical | DX: J45.909 Unspecified asthma, uncomplicated (principal); J84.9 Interstitial pulmonary disease, unspecified; K21.9 Gastro-esophageal reflux disease without esophagitis; Z87.891 Personal history of nicotine dependence | CPT/HCPCS: 99214 ==

== ENCOUNTER → 2025-10-31 09:16 | Outpatient (BNVA) | payer MEDICARE, SELFPAY | PROVIDERS: PCP Family Medicine; Referring Provider Family Medicine; Visit Provider Surgery | DX: R13.10 Dysphagia, unspecified (principal) | CPT/HCPCS: 99213 ==

== ENCOUNTER 2025-11-08 10:47 | Day surgery (SDC) | payer MEDICARE, SELFPAY ==
--- NOTE | 2025-11-07 17:13 | PDOC.DSDIS_ITS ---
Date of service: 11/08/25 Discharge Plan Disposition Patient Disposition: Home Condition: Good Discharge Details Attending Provider: Adelfo Young Primary Care Provider: Reinaldo Gamez Home Meds and New Rx's Prescriptions: Continued estradiol 10 mcg tablet 10 mcg vaginal .QOD Patient Comments: INSERT 1 TABLET VAGINALLY TWICE WEEKLY epinephrine [EpiPen] 0.3 mg/0.3 mL auto-injector 0.3 mg IM ONCE PRN (Reason: anaphylaxis) Qty: 2 0RF omeprazole 20 mg capsule,delayed release(DR/EC) 20 mg PO DAILY Qty: 30 2RF cholecalciferol (vitamin D3) [Vitamin D3] 1,000 UNIT capsule 2,000 unit PO DAILY albuterol sulfate 90 mcg/actuation HFA aerosol inhaler 2 puff IH QID PRN (Reason: SOB) Qty: 6.7 2RF levothyroxine [Synthroid] 50 mcg tablet 50 mcg PO DAILY Qty: 90 3RF budesonide-formoterol [Symbicort] 160-4.5 mcg/actuation HFA aerosol inhaler 2 puff inhalation BID 30 Days Qty: 10.2 12RF Discharge Instructions Additional Instructions: Ana, it was great seeing you today, and I hope you feel well through the weekend. Things went smoothly. Generally, your esophagus is pretty normal- appearing at least to the naked eye. I suppose that the bottom part of the esophagus could be interpreted as a little bit narrowed. But it lacks the typical appearance of a so-called esophageal web or ring. Certainly, it does not appear worrisome like esophageal cancer. I am able to pass my camera across it without much difficulty. And to put things in perspective, my camera is about 50% of the size of the typical esophagus. I did pass a balloon dilator across it today up to 16.5 mm. I did like to see if that helps you feel any different over the next week or 2. I also took several biopsies to rule out other sources of discomfort associated with swallowing. Biopsies will take a week or so to get back, and have gone ahead and taken the liberty of making a follow-up appointment in my office on the at 9:30 in the morning. Lets talk then and see how you are doing. In the meantime, please keep taking the omeprazole, and be thoughtful with regards to keeping track of your symptoms. If you need anything in the meantime, please do not hesitate to ask. 1. If tolerated, consume a soft, low fiber diet for 1-2 days. [address] not drive, drink alcohol, operate machinery, make critical decisions, or do activities that require coordination or balance for 24 hours. 3. You may experience a sore throat for 24 to 48 hours. You may use throat lozenges or gargle with warm salt water to relieve the discomfort. 4. Because air was put into your stomach during the procedure, you may experience some belching. 5. Go directly to the emergency room if you notice any of the following: Develop chills (warm to touch), or if you have a thermometer and your temperature is above 101 Difficulty breathing or difficultly swallowing Persistent vomiting Severe abdominal pain, other than gas cramps Severe chest pain Black, tarry stools Any bleeding ? exceeding one tablespoon 6. Call your physician if the site where your intravenous was started becomes red, swollen, painful, and warm to touch. 7. Your physician has reviewed your pre-procedure medications. Please continue to take those medications as previously ordered. You will be given specific information/education regarding any changes to your medications before leaving. Stand Alone Forms: Anesthesia Discharge Inst., Jake Patterson (DSU), Portal Information Activity:: Activity as Tolerated Diet:: As Tolerated Discharge Orders Discharge Orders: Discharge Order (Routine); Ordered 11/07/25 Ordered By: Adelfo Young DS: Diagnosis Discharge Diagnosis (1) Dysphagia: Status: Acute Asessment and Plan: Follow-up on biopsy results and reassess as outpatient
--- NOTE | 2025-11-07 17:14 | W.PM.ENDDOP ---
Date of service: 11/08/25 Time of Service: 13:42 Endoscopy Report DATE OF PROCEDURE: 11/08/25 PRE-OP DIAGNOSIS: GERD with dysphagia POST-OP DIAGNOSIS: same PROCEDURE: EGD with biopsies and balloon dilation SURGEON: Adelfo Young ANESTHESIA TYPE: General:No Airway ESTIMATED BLOOD LOSS: 5 PATHOLOGY: other (Nondirected biopsies of gastric antrum and body to rule out Helicobacter pylori. Nondirected biopsies of esophagus to rule out eosinophilic esophagitis.) COMPLICATIONS: None DISPOSITION: same day INDICATIONS: Ana is an 80-year-old woman with longstanding gastroesophageal reflux disease and new symptoms of dysphagia PROCEDURE START TIME: 13:00 PROCEDURE END TIME: : FINDINGS: Mild esophageal narrowing or perhaps elevated GE junction resting pressure; mild gastritis PROCEDURE DESCRIPTION: After the initiation of monitored anesthetic care, and with the assistance of a bite block, I advanced a standard gastroscope through the mouth past the hypopharynx and into the esophagus.? Under the direct vision of the scope, I advanced down the esophagus towards the stomach.? The upper and midesophagus were normal in course and caliber. Saw no evidence of any mucosal pathology. There does appear to be some lumen narrowing at the GE junction, which measures around 35 cm past the incisors. Narrowband imaging was used to assist with the analysis. The Z-line was regular, and I saw no signs of Buchanan's esophagus. There was no evidence of any esophageal malignancies. I am able to pass the scope across the GE junction into the stomach with relative ease. Clinically, it seems a little more like an elevated pressure across the GE junction as opposed to true stricturing of the lumen. I traversed the GE junction with ease, and insufflated the stomach until all the rugae were obliterated. There were a few punctate areas of gastritis towards the antrum at the level of the incisura angularis. There is no discrete ulceration or other pathology. I performed retroflexion. I was not able to appreciate any hiatal herniation. I then brought the camera back up to the area of the GE junction. I carefully advanced a balloon dilator across this with the distal portion of the balloon in the stomach. I inflated the balloon to 15 mm. There was no significant purchase on the balloon wall, or any restriction of the movement. The balloon was let down, and the camera was passed across the GE junction again. I did not appreciate any mucosal disruptions. I brought the camera back up proximal to this and passed another balloon up to 16-1/2 mm. There was a little bit of resistance with this. The balloon was then let down, and the camera was passed again. Similar to the first time, there was no obvious discrete disruption of the mucosa, and I wonder if this is more consistent with an achalasia type pathology rather than a true stricture. Regardless, having performed some dilation, I felt the safest thing to do at this point was to obtain a few esophageal biopsies to rule out eosinophilic esophagitis, and reassess symptomatology. Therefore, the camera was brought up along the length of the esophagus with a few nondirected biopsies of the esophageal mucosa all performed with cold forceps. There is no worrisome bleeding from any of the biopsy sites. I advanced back down into the stomach and emptied it completely prior to removal of the camera.
[2025-11-08] VITALS (10 sets, daily range): BP systolic 111–168; BP diastolic 51–93; PULSE 60; RESP 14–20; TEMP 36.2–36.5; O2SAT 95–98; BMI 33.3
[2025-11-08] MEDS: Lactated Ringers 1,000 ML 80 ML IV (11:41)
--- NOTE | 2025-11-08 12:15 | ANES.PREOP_ITS ---
General Info Date of Service Date Performed: 11/08/25 Height: 5 ft 5 in Weight: 91 kg Body Mass Index (BMI): 33.3 Surgical Procedure: Operation Date: 11/08/25 12:05 Proposed Procedure Side Surgeon p Gastroscopy with Possible Dilation Adelfo Young MD Meds Allergies and Home Medications Allergies Allergy/AdvReac Type Severity Reaction Status Date / Time pomegranate Allergy Severe Itching Verified 11/08/25 11:07 umeclidinium (From Anoro Allergy Intermediate rash Verified 11/08/25 11:07 Ellipta) vilanterol (From Anoro Allergy Intermediate rash Verified 11/08/25 11:07 Ellipta) dimethicone (From Cerave Allergy Mild Itching Verified 11/08/25 11:07 Baby Moisturizing) hydrochlorothiazide Allergy Mild Itching Verified 11/08/25 11:07 nitrofurantoin (From Allergy Mild Itching Verified 11/08/25 11:07 Macrobid) nitrofurantoin Allergy Mild Itching Verified 11/08/25 11:07 macrocrystalline (From Macrobid) Penicillins Allergy Mild Itching Verified 11/08/25 11:07 bees Allergy Severe Anaphylaxis Uncoded 11/08/25 11:07 Home Medication ?Medication ?Instructions ?Recorded cholecalciferol (vitamin D3) 25 2,000 unit PO DAILY mcg (1,000 unit) capsule (Vitamin D3) albuterol sulfate 90 mcg/actuation 2 puff inhalation Q ID PRN SOB #6.7 07/21/23 aerosol inhaler grams levothyroxine 50 mcg tablet 50 mcg PO DAILY #90 tabs 0 12/03/24 (Synthroid) budesonide-formoterol HFA 160 2 puff inhalation BID 30 days 12/31/24 mcg-4.5 mcg/actuation aerosol #10.2 grams inhaler (Symbicort) epinephrine 0.3 mg/0.3 mL 0.3 mg (0.3 mL) IM ONCE PRN 01/17/25 injection, auto-injector (EpiPen) anaphylaxis #2 ea estradiol 10 mcg vaginal tablet 10 mcg vaginal .QOD omeprazole 20 mg capsule,delayed 20 mg PO DAILY #30 ca ps 10/31/25 release Current Visit Medications: Current Medications Generic Name Dose Route Start Last Admin Trade Name Freq PRN Reason Stop Dose Admin Ringer's Solution 1,000 mls @ 80 mls/hr 11/08/25 06:00 11/08/25 11:41 IV 11/08/25 23:59 80 mls/hr INFUSION FE Administration Sodium Chloride 0 ml 11/08/25 06:00 Normal Saline Flush 10 Ml Syr IV 11/08/25 23:59 PRN PRN Sodium Chloride 0 ml 11/08/25 06:00 Normal Saline 10 Ml Vial IJ 11/08/25 23:59 DIRECTED PRN Sterile Water 0 ml 11/08/25 06:00 Water,Injection,Sterile 10 Ml Vial IJ 11/08/25 23:59 DIRECTED PRN PFSH Active Problems Active Problems: Problem Status Onset Code GERD (gastroesophageal reflux disease) Chronic K21.9 Dysphagia Acute R13.10 Right shoulder pain Acute M25.511 Thoracic ascending aortic aneurysm Acute I71.21 Lumbosacral spondylosis without myelopathy Acute M47.817 Leg cramp Acute R25.2 Postmenopausal Acute Z78.0 Status post arthroscopic partial medial meniscectomy of left knee Acute 10/12/23 Z98.890, Z87.828 ILD (interstitial lung disease) Acute J84.[address] Acute R93.89 Asthma Chronic J45.909 Lumbar spondylosis Acute M47.816 Low back pain Acute M54.50 Pacemaker Acute Z95.0 Low back pain Acute M54.50 Spinal stenosis Acute M48.00 Real time reverse transcriptase PCR positive for COVID-19 virus Acute U07.1 Cellulitis of arm, left Acute L03.114 COVID-19 Acute ~11/03/22 U07.1 Abnormal weight loss Acute R63.4 Abdominal pain Acute R10.9 MEDINA (dyspnea on exertion) Acute R06.00 Medical History Medical History Nonspecific interstitial pneumonitis Obesity (BMI 30.0-34.9) Sick sinus syndrome due to SA node dysfunction (02/03/18) dual chamber pacer 02/12 Hypothyroidism (acquired) (05/03/18) Elevated d-dimer [place] for this [place] [facility] [place] who recommended to not trend d- dimer in this patient Pneumonitis Spinal stenosis Uterine cancer s/p resection, radiation, in remission Surgical History Surgical History H/O cervical spine surgery cervical spinal fusion C6 or C7 S/P tympanoplasty S/p bilateral carpal tunnel release History of total right knee replacement S/P skin cancer resection LLE S/P hysterectomy with oophorectomy S/P placement of cardiac pacemaker (~2018) [employer]; replaced 11/30/2024(d/t recall) at [facility], R upper side Status post replacement of both shoulder joints (05/03/18) Tobacco Smoking/Tobacco Use Status: Former Tobacco Use Smokeless tobacco user: other Passive smoking exposure: Yes Alcohol Alcohol Intake: current Alcohol intake frequency: a few times a week Alcohol type: other Substance Use Substance use: Never Substance use type: does not use Details: occasionally uses CBD Prental History History 2 Para 2 Hx # Term Pregnancies 2 Multiple births Hx # Pregnancies Ectopic pregnancies AB induced Hx Number of Living Children AB spontaneous Vital Signs and Lab Results Vital Signs Most Recent Vital Signs in EMR: Most Recent Vital Signs Temp Pulse Resp BP Pulse Ox 36.3 C L 60 16 168/75 H 98 11/08/25 11:15 11/08/25 11:15 11/08/25 11:15 11/08/25 11:15 11/08/25 11:15 Imaging and Studies Imaging and Studies Study information below may be from another EMR and interpreted by another provider. Please see original notes in EMR for more complete details. EKG Summary: 07/09/20: Exam: Resting ECG Patient Location: E HR:60 bpm ECG Measurements Heart Rate 60 AXIS AL 199 P [id number] QRSd 98 QRS 2 QT 427 T13 QTc 427 Conclusion Atrial-paced rhythm. No acute ST elevation or depression. I have reviewed and I agree with the emergency room physician???s ECG interpretation. Electronically signed by: <Electronically signed by Rosendo Muñiz M.D. in [place]> 07/10/20 1153 Cosigned by: Stress Test Summary: 12/27/19: MPI Conclusion Patient's ejection fraction was 53%. There were no wall motion abnormalities. There is no evidence of ischemia on the imaging portion of this exam. This represents a normal SPECT stress test. Echocardiogram Summary: 03/11/20: Conclusion Left Ventricle : The left ventricle is normal size. The left ventricular systolic function is normal. The left ventricular ejection fraction is within the normal range. There is normal left ventricular wall thickness. There is normal LV segmental wall motion. The left ventricular diastolic function is normal. LVEF is 55-60%. Right Ventricle : The right ventricle is normal size. The right ventricular systolic function is normal. Atria : The left atrium size is normal. The right atrium size is normal. Valves: There are no hemodynamically significant valvular lesions. Great Vessels : IVC is normal in size and collapses >50% with inspiration. The RVSP is 27 mmHg. Compared to echocardiogram dated 12/28/2017: There is no significant change. Pulmonary Function Summary: 05/03/23: Pulmonary Function Test Result Indications: Asthma Interpretation Spirometry: There is no airflow limitation. There was a 21% decrease in FEV1% with administration of 8 mg/mL methacholine Lung Volumes: Normal lung volumes Diffusion Capacity: Normal diffusion Airway Pressure: Normal airways resistance Impression Normal baseline pulmonary function. Positive methacholine challenge. Clinical Correlation therefore is recommended. Anesthesia Assessment and Plan Anesthesia History Personal History: No History of Anesthesia Complications Family History: No Family History of Anesthesia Complications Exercise Tolerance Exercise Tolerance: Metabolic Equivalents>4 Cardiac & Pulmonary Exam Cardiac Exam: Normal S1/S2 Heart Sounds Pulmonary Exam: Clear Bilateral Breath Sounds Implantable Cardiac Device Does patient have a Pacemaker or an ICD?: No Airway Exam Known Difficult Airway: No Mallampati Class: 1 Mouth Opening: Normal (> 3cm) Thyromental Distance: Greater than 3 cm Neck Range of Motion: Full ROM Neck Circumference: Normal Teeth Condition: Normal Dentition ASA Classification ASA Score: ASA 3 Emergency Case?: No NPO Status NPO Status: NPO Clears >2 hours, Solids >8 hours Anesthesia Plan Resuscitation Status: Full Code Anesthesia Technique: General Anesthesia Airway Planned: Natural Airway Monitors Used: Standard Monitors
--- NOTE | 2025-11-08 13:02 | STOM_PTH ---
PATIENT: Ana Sierra LOC: [facility] U#:[id number] AGE/SX: 80/F ROOM: RE11/08/[address]: Adelfo Young MD : 1945 BED: DIS: 11/08/2025 SPEC #: [id number] RECD: 11/08/25 16:12 STATUS: [facility] #: [id number] AJRVIS: 11/08/25 13:[address]: Adelfo Young DEPT: Surgical Specimen RECD BY: Genia Hooper ENTERED: 11/08/25 16:12 SP TYPE: STOMACH OTHR DR: Reinaldo Gamez MD Tissues: 1 - STOMACH BIOPSY 2 - STOMACH BIOPSY 3 - ESOPHAGUS BIOPSY Procedures: GROSS AND MICRO LEVEL 4 Comments: [id number]
--- NOTE | 2025-11-08 13:46 | W.ANESPOSTOP ---
Postoperative Evaluation Date, Time and Location Date Performed: 11/08/25 Time Performed: 13:41 Patient Location: PACU Vital Signs Most Recent Imported Vital Signs: Most Recent Vital Signs Temp Pulse Resp BP Pulse Ox 36.5 C 60 20 119/93 H 96 11/08/25 13:37 11/08/25 13:37 11/08/25 13:37 11/08/25 13:37 11/08/25 13:37 Pain Score Most Recent Pain Score: Most Recent Pain Score Pain Level 0 11/08/25 13:38 Assessment Mental Status: Awake (Alert & Oriented to Patient Baseline) Airway and Respiratory Function: Patent airway with normal (patient baseline) respiratory exam Cardiovascular Function: Hemodynamically Stable Hydration Status: Adequately Hydrated Nausea & Vomiting: No Nausea or Vomiting Pain: Pt. Denies Any Pain Peripheral Nerve Block: Patient did not receive a nerve block
== END 2025-11-08 14:29 | disposition home or self-care (01) ==
LOC: SUR 10:47
PROVIDERS: PCP Family Medicine; Visit Provider Surgery
PROC: 0D758ZZ Dilation of Esophagus, Via Natural or Artificial Opening Endoscopic (ICD-10-PCS; CPT 43239; principal; 2025-11-08 12:00)
DX: R13.10 Dysphagia, unspecified (principal); K21.9 Gastro-esophageal reflux disease without esophagitis; K29.50 Unspecified chronic gastritis without bleeding
CPT/HCPCS: 43239; 88305; J2704